=== PATIENT | female | born 1945 | race Caucasian/White ===

== ENCOUNTER 2017-04-13 18:20 | Inpatient (IN) | payer MEDICARE, BC ==
[2017-04-13] MEDS ORDERED: SODIUM CHLORIDE 0.9% 500 ML IV STA (18:46)
[2017-04-13 18:50] LABS: Glucose,Whole Blood 230 mg/dL (75-99)
--- NOTE | 2017-04-13 18:51 | ED ---
General Adult HPI - General Chief complaint: Syncope Stated complaint: syncope, multiple falls, weakness left ankle Time Seen by Provider: 04/13/17 18:25 Source: patient, family, RN notes reviewed Mode of arrival: wheelchair Limitations: no limitations - History of Present Illness Initial comments: This is a 72-year-old female who presents emergency Department with a past medical history significant for hypertension. Patient comes in today because she felt weak and fell down. Patient states she felt better so she got back up and felt weak again and fell down a second time this time hurting her left ankle. Patient denies any lightheadedness or dizziness. Patient denies any chest pain or palpitations. Patient denies any difficulty breathing or shortness of breath. Patient states she has a history of anemia and she has taken iron. Patient denies abdominal pain patient denies nausea vomiting diarrhea. Patient denies any recent fever chills or cough. Patient states the first time it happened she was in the shower and that is when she got weak the second time she was no longer in the shower. - Related Data Home Medications Medication Instructions Recorded Confirmed Aspirin EC [Ecotrin] 81 mg PO DAILY 03/10/16 04/13/17 Atorvastatin [Lipitor] 40 mg PO DAILY 03/10/16 04/13/17 Chlorthalidone [Hygroton] 25 mg PO DAILY 03/10/16 04/13/17 Cholecalciferol [Vitamin D3] 2,000 unit PO DAILY 03/10/16 04/13/17 Levothyroxine Sodium [Synthroid] 100 mcg PO DAILY 03/10/16 04/13/17 Losartan Potassium 100 mg PO DAILY 03/10/16 04/13/17 amLODIPine [Norvasc] 5 mg PO DAILY 03/10/16 04/13/17 Ferrous Sulfate [Feosol] 325 mg PO TID 04/13/17 04/13/17 Allergies Allergy/AdvReac Type Severity Reaction Status Date / Time No Known Allergies Allergy Verified 04/13/17 19:18 Review of Systems ROS Statement: Those systems with pertinent positive or pertinent negative responses have been documented in the HPI. ROS Other: All systems not noted in ROS Statement are negative. Past Medical History Past Medical History: Hyperlipidemia, Hypertension, Thyroid Disorder History of Any Multi-Drug Resistant Organisms: None Reported Past Surgical History: Breast Surgery, Hysterectomy Past Psychological History: No Psychological Hx Reported Smoking Status: Never smoker Past Alcohol Use History: None Reported Past Drug Use History: None Reported General Exam - General Exam Comments Initial Comments: GENERAL: Patient is well-developed and well-nourished. Patient is nontoxic and well- hydrated and is in mild distress and is very tired.. ENT: Neck is soft and supple. No significant lymphadenopathy is noted. Oropharynx is clear. Moist mucous membranes. Neck has full range of motion without eliciting any pain. EYES: The sclera were anicteric and conjunctiva were pink and moist. Extraocular movements were intact and pupils were equal round and reactive to light. Eyelids were unremarkable. PULMONARY: Unlabored respirations. Good breath sounds bilaterally. No audible rales rhonchi or wheezing was noted. CARDIOVASCULAR: There is a regular rate and rhythm without any murmurs gallops or rubs. ABDOMEN: Soft and nontender with normal bowel sounds. No palpable organomegaly was noted. There is no palpable pulsatile mass. SKIN: Patient appears very pale NEUROLOGIC: Patient is alert and oriented x3. Cranial nerves II through XII are grossly intact. Motor and sensory are also intact. Normal speech, volume and content. Symmetrical smile. MUSCULOSKELETAL: Normal extremities with adequate strength and full range of motion. No lower extremity swelling or edema. No calf tenderness. LYMPHATICS: No significant lymphadenopathy is noted PSYCHIATRIC: Normal psychiatric evaluation. Limitations: no limitations Course Vital Signs 04/13/17 18:23 Pulse Rate 84 Respiratory 24 Rate Blood Pressure 96/54 O2 Sat by Pulse 85 L Oximetry Medical Decision Making - Medical Decision Making EKG shows normal sinus rhythm at 70 bpm AL interval 160 QRS is 82 QT interval 392 QTC is 446 per patient's EKG shows no ST segment elevation or depression. Patient does have some inverted T waves in V1 and V2 well as V3 Patient's hemoglobin is 6.7 and is guaiac positive. I started a type and cross ordered 1 unit of DrAneudy blood cells to be delivered. Patient is going to be admitted I spoke with Dr. Stone and he agreed with admission I spoke with Dr. Mahoney and he agreed to accept the patient in ICU. I wrote admitting orders and consult to Dr. Maurer for possible scope. I repeated the CBC on the floor.. Patient's x-ray of the ankle showed a fractured fibula distally. I put the patient an OCL and I consult orthopedics - Lab Data Result diagrams: 04/13/17 18:42 04/13/17 18:42 Lab Results 04/13/17 04/13/17 04/13/17 Range/Units 18:35 18:42 18:42 WBC 11.8 H (3.8-10.6) k/uL RBC 3.05 L (3.80-5.40) m/uL Hgb 6.7 L* (11.4-16.0) gm/dL Hct 23.0 L (34.0-46.0) % MCV 75.3 L (80.0-100.0) fL MCH 22.0 L (25.0-35.0) pg MCHC 29.2 L (31.0-37.0) g/dL RDW 23.4 H (11.5-15.5) % Plt Count 373 (150-450) k/uL Neutrophils % 83 % Lymphocytes % 11 % Monocytes % 4 % Eosinophils % 1 % Basophils % 0 % Neutrophils # 9.8 H (1.3-7.7) k/uL Lymphocytes # 1.3 (1.0-4.8) k/uL Monocytes # 0.4 (0-1.0) k/uL Eosinophils # 0.1 (0-0.7) k/uL Basophils # 0.1 (0-0.2) k/uL Hypochromasia Marked Poikilocytosis Slight Anisocytosis Moderate Microcytosis Moderate PT (9.0-12.0) sec INR (<1.2) APTT (22.0-30.0) sec Sodium (137-145) mmol/L Potassium (3.5-5.1) mmol/L Chloride (98-107) mmol/L Carbon Dioxide (22-30) mmol/L Anion Gap mmol/L BUN (7-17) mg/dL Creatinine (0.52-1.04) mg/dL Est GFR (MDRD) Af Amer (>60 ml/min/1.73 sqM) Est GFR (MDRD) Non-Af (>60 ml/min/1.73 sqM) Glucose (74-99) mg/dL POC Glucose (mg/dL) 230 H (75-99) mg/dL POC Glu [employer]orter ID [place] Calcium (8.4-10.2) mg/dL Magnesium (1.6-2.3) mg/dL Total Bilirubin (0.2-1.3) mg/dL AST (14-36) U/L ALT (9-52) U/L Alkaline Phosphatase (38-126) U/L Total Creatine Kinase 286 H (30-135) U/L CK-MB (CK-2) 9.5 H* (0.0-2.4) ng/mL CK-MB (CK-2) Rel Index 3.3 Troponin I <0.012 (0.000-0.034) ng/mL Total Protein (6.3-8.2) g/dL Albumin (3.5-5.0) g/dL Stool Occult Blood (Negative) Blood Type Blood Type Confirm Blood Type Recheck Antibody Screen Crossmatch Spec Expiration Date 04/13/17 04/13/17 04/13/17 Range/Units 18:42 18:42 19:44 WBC (3.8-10.6) k/uL RBC (3.80-5.40) m/uL Hgb (11.4-16.0) gm/dL Hct (34.0-46.0) % MCV (80.0-100.0) fL MCH (25.0-35.0) pg MCHC (31.0-37.0) g/dL RDW (11.5-15.5) % Plt Count (150-450) k/uL Neutrophils % % Lymphocytes % % Monocytes % % Eosinophils % % Basophils % % Neutrophils # (1.3-7.7) k/uL Lymphocytes # (1.0-4.8) k/uL Monocytes # (0-1.0) k/uL Eosinophils # (0-0.7) k/uL Basophils # (0-0.2) k/uL Hypochromasia Poikilocytosis Anisocytosis Microcytosis PT (9.0-12.0) sec INR (<1.2) APTT (22.0-30.0) sec Sodium 141 (137-145) mmol/L Potassium 3.5 (3.5-5.1) mmol/L Chloride 107 (98-107) mmol/L Carbon Dioxide 21 L (22-30) mmol/L Anion Gap 13 mmol/L BUN 29 H (7-17) mg/dL Creatinine 1.24 H (0.52-1.04) mg/dL Est GFR (MDRD) Af Amer 51 (>60 ml/min/1.73 sqM) Est GFR (MDRD) Non-Af 42 (>60 ml/min/1.73 sqM) Glucose 195 H (74-99) mg/dL POC Glucose (mg/dL) (75-99) mg/dL POC Glu T[employer] Sorter ID Calcium 9.3 (8.4-10.2) mg/dL Magnesium 1.7 (1.6-2.3) mg/dL Total Bilirubin 0.6 (0.2-1.3) mg/dL AST 31 (14-36) U/L ALT 33 (9-52) U/L Alkaline Phosphatase 99 (38-126) U/L Total Creatine Kinase (30-135) U/L CK-MB (CK-2) (0.0-2.4) ng/mL CK-MB (CK-2) Rel Index Troponin I (0.000-0.034) ng/mL Total Protein 6.2 L (6.3-8.2) g/dL Albumin 3.5 (3.5-5.0) g/dL Stool Occult Blood (Negative) Blood Type A Positive Blood Type Confirm A Positive Blood Type Recheck CABO Indicated Antibody Screen NEGATIVE Crossmatch See Detail Spec Expiration Date 04/16/2017 - 234104/13/17 04/13/17 Range/Units 19:44 19:46 WBC (3.8-10.6) k/uL RBC (3.80-5.40) m/uL Hgb (11.4-16.0) gm/dL Hct (34.0-46.0) % MCV (80.0-100.0) fL MCH (25.0-35.0) pg MCHC (31.0-37.0) g/dL RDW (11.5-15.5) % Plt Count (150-450) k/uL Neutrophils % % Lymphocytes % % Monocytes % % Eosinophils % % Basophils % % Neutrophils # (1.3-7.7) k/uL Lymphocytes # (1.0-4.8) k/uL Monocytes # (0-1.0) k/uL Eosinophils # (0-0.7) k/uL Basophils # (0-0.2) k/uL Hypochromasia Poikilocytosis Anisocytosis Microcytosis PT 11.4 (9.0-12.0) sec INR 1.1 (<1.2) APTT 20.3 L (22.0-30.0) sec Sodium (137-145) mmol/L Potassium (3.5-5.1) mmol/L Chloride (98-107) mmol/L Carbon Dioxide (22-30) mmol/L Anion Gap mmol/L BUN (7-17) mg/dL Creatinine (0.52-1.04) mg/dL Est GFR (MDRD) Af Amer (>60 ml/min/1.73 sqM) Est GFR (MDRD) Non-Af (>60 ml/min/1.73 sqM) Glucose (74-99) mg/dL POC Glucose (mg/dL) (75-99) mg/dL POC Glu T[employer] Sorter ID Calcium (8.4-10.2) mg/dL Magnesium (1.6-2.3) mg/dL Total Bilirubin (0.2-1.3) mg/dL AST (14-36) U/L ALT (9-52) U/L Alkaline Phosphatase (38-126) U/L Total Creatine Kinase (30-135) U/L CK-MB (CK-2) (0.0-2.4) ng/mL CK-MB (CK-2) Rel Index Troponin I (0.000-0.034) ng/mL Total Protein (6.3-8.2) g/dL Albumin (3.5-5.0) g/dL Stool Occult Blood Positive H (Negative) Blood Type Blood Type Confirm Blood Type Recheck Antibody Screen Crossmatch Spec Expiration Date Critical Care Time Critical Care Time: Yes Total Critical Care Time: 35 Disposition Clinical Impression: Anemia, GI bleed, Fibula fracture Disposition: ADMITTED IP TO THIS [facility] Referrals: Sebastian Miguel MD [Primary Care Provider] - 1-2 days Time of Disposition: 21:00
[2017-04-13 19:00] LABS: Anisocytosis Moderate; Basophils # (A) 0.1 k/uL (0-0.2); Basophils % (A) 0 %; CH 21.1; CHCM 28.2; Eosinophils # (A) 0.1 k/uL (0-0.7); Eosinophils % (A) 1 %; HDW 3.77; Hypochromasia Marked; Luc # (Auto) 0.14; Luc % (Auto) 1; Lymphocytes # (A) 1.3 k/uL (1.0-4.8); Lymphocytes % (A) 11 %; MCHC 29.2 g/dL (31.0-37.0); MCV 75.3 fL (80.0-100.0); Mean Platelet Volume 6.9; Microcytosis Moderate; Monocytes # (A) 0.4 k/uL (0-1.0); Monocytes % (A) 4 %; Neutrophils # (A) 9.8 k/uL (1.3-7.7); Neutrophils % (A) 83 %; Poikilocytosis Slight; RBC 3.05 m/uL (3.80-5.40); RDW 23.4 % (11.5-15.5); WBC 11.8 k/uL (3.8-10.6); WBC (Perox) 11.57
[2017-04-13 19:04] LABS: Potassium 3.5 mmol/L (3.5-5.1)
[2017-04-13 19:05] LABS: Calcium 9.3 mg/dL (8.4-10.2); HGB 6.7 gm/dL (11.4-16.0); Magnesium 1.7 mg/dL (1.6-2.3); Total Bilirubin 0.6 mg/dL (0.2-1.3); Total Protein 6.2 g/dL (6.3-8.2)
--- NOTE | 2017-04-13 19:08 | XR ---
EXAMINATION TYPE: XR chest 2V DATE OF EXAM: 04/13/2017 COMPARISON: NONE HISTORY: Shortness of breath, syncope and weakness TECHNIQUE: Frontal and lateral views of the chest are obtained. FINDINGS: There is no focal air space opacity, pleural effusion, or pneumothorax seen. The cardiac silhouette size is prominent although the patient is rotated which may accentuate appearance. There i s overlying tubing. There are overlying cardiac leads. The osseous structures are intact. IMPRESSION: No acute cardiopulmonary process.
[2017-04-13 19:17] LABS: Creatine Kinase 286 U/L (30-135)
[2017-04-13 19:28] LABS: Troponin I <0.012 ng/mL (0.000-0.034)
[2017-04-13 19:37] LABS: Creatine Kinase MB 9.5 ng/mL (0.0-2.4)
[2017-04-13 20:20] LABS: INR 1.1 (<1.2); Prothrombin Time 11.4 sec (9.0-12.0)
[2017-04-13 20:25] LABS: Partial Thromboplastin Time 20.3 sec (22.0-30.0)
--- NOTE | 2017-04-13 20:49 | XR ---
Left ankle HISTORY: Trauma and pain 3 views of the left ankle There is a comminuted distal fibular fracture with lateral posterior displacement at the metaphyseal level. No evident dislocation. Difficult to exclude a small chip fracture at the posterior malleolus. There is a small plantar calcaneal spur. Vascular calcifications are present. There is soft tissue s welling. IMPRESSION: Fracture as described.
[2017-04-13] MEDS ORDERED: NALOXONE 0.4 MG/ML 1 ML VIAL IV PRN (21:05)
[2017-04-13 22:30] LABS: Glucose,Whole Blood 135 mg/dL (75-99)
[2017-04-14 00:11] LABS: Appearance,Urine Clear (Clear); Bilirubin,Urine Negative (Negative); Glucose,Urine (UA) Negative (Negative); Ketones,Urine Negative (Negative); Leukocyte Esterase,Urine Trace (Negative); Mucus,Urine Rare /hpf; Nitrite,Urine Negative (Negative); Particle Count 3220; Protein,Urine Negative (Negative); RBC,Urine <1 /hpf (0-5); Specific Gravity,Urine 1.011 (1.001-1.035); Squamous Epithelial Cell,Urine <1 /hpf (0-4); UA Billing (MACRO vs. MICRO) MICRO; Urobilinogen,Urine <2.0 mg/dL (<2.0); WBC,Urine 1 /hpf (0-5)
[2017-04-14] MEDS: HYDROcodone/APAP 5-325MG 1 EACH TAB PO PRN ×2 (00:12→07:01)
[2017-04-14 04:51] LABS: Anion Gap 10 mmol/L; Blood Urea Nitrogen 30 mg/dL (7-17); Calcium 8.9 mg/dL (8.4-10.2); Carbon Dioxide 22 mmol/L (22-30); Chloride 110 mmol/L (98-107); Glucose 109 mg/dL (74-99); Magnesium 1.9 mg/dL (1.6-2.3); Non-African American GFR(MDRD) 51 (>60 ml/min/1.73 sqM); Phosphorous 3.4 mg/dL (2.5-4.5); Potassium 3.1 mmol/L (3.5-5.1); Sodium 142 mmol/L (137-145)
[2017-04-14 04:53] LABS: Anisocytosis Moderate; Basophils % (A) 0 %; CH 22.8; CHCM 29.6; Eosinophils % (A) 0 %; HDW 4.36; HGB 7.2 gm/dL (11.4-16.0); Hypochromasia Marked; Luc # (Auto) 0.27; Luc % (Auto) 3; Lymphocytes # (A) 1.5 k/uL (1.0-4.8); Lymphocytes % (A) 17 %; MCHC 29.8 g/dL (31.0-37.0); MCV 77.3 fL (80.0-100.0); Microcytosis Moderate; Monocytes # (A) 0.6 k/uL (0-1.0); Monocytes % (A) 7 %; Neutrophils # (A) 6.4 k/uL (1.3-7.7); Neutrophils % (A) 73 %; Poikilocytosis Moderate; RBC 3.11 m/uL (3.80-5.40); RDW 22.3 % (11.5-15.5); WBC 8.8 k/uL (3.8-10.6); WBC (Perox) 8.99
[2017-04-14] MEDS ORDERED: Potassium Replacement Protocol 1 EACH MISC MISCELLANE PRN ×2 (05:01→05:34)
[2017-04-14] MEDS: ONDANSETRON 4 MG/2 ML VIAL IVP PRN ×2 (05:51→12:05)
[2017-04-14] MEDS ORDERED: POTASSIUM CHLORIDE ER 20 MEQ TAB.ER PO SCH (06:00)
[2017-04-14] MEDS: POTASSIUM CHLORIDE 10 MEQ, LIDOCAINE 2% INJ 10 MG in SODIUM CHLORIDE 0.9% 100 ML IV SCH ×2 (06:29→08:54)
[2017-04-14] MEDS: SODIUM CHLORIDE 0.9% 1,000 ML IV SCH ×2 (08:55→14:00)
[2017-04-14] MEDS: ESOMEPRAZOLE 20 MG in SODIUM CHLORIDE 0.9% 50 ML IVPB SCH (10:00)
[2017-04-14] MEDS: HYDROmorphone 1 MG/ML 1 ML SYRINGE IVP PRN ×2 (12:05→22:25)
--- NOTE | 2017-04-14 13:41 | HP ---
CHIEF COMPLAINT: GI bleeding, syncope and fracture of the left lower leg. HISTORY OF PRESENT ILLNESS: This is another admission for this 72-year-old white female. She has been anemic for several months. She underwent upper and lower GI endoscopies without any abnormality being discovered. She has continued to be anemic, but has otherwise been asymptomatic. On the night of admission, she got up to go to the bathroom and felt dizzy and fell. She denied chest pain, focal neurologic deficits, etc. She is a poor historian. It is not clear if she saw blood per rectum or not. She decided that she should go to the hospital and as her helped her to the car, she passed out again and that is probably when she fractured her left tibia. Her hemoglobin has been running around 8 over the last month or 2. She came to the emergency room and her hemoglobin was 7.2 and she was admitted. REVIEW OF SYSTEMS: She denies any focal neurologic deficits, change in vision or hearing, shortness of breath, cough, chest pain, palpitations, orthopnea, PND , abdominal pain, hematemesis, jaundice. She has had no urinary complaints including hematuria. Past medical history, family history and personal social history reveal that she cannot take Procardia or KALIA inhibitors. Medications include combination of ( ), ( ), ( ) for H. pylori. She is also on atorvastatin 40 mg at night, amlodipine 5 mg once a day, chlorthalidone 25 mg once a day, losartan 100 mg once a day, levothyroxine 0.1 once a day, vitamin D3, 2000 units a day and 81 mg of aspirin. The remainder of her history is unremarkable. She does not drink or smoke. PHYSICAL EXAM: Blood pressure is 119/78 with a pulse of 85, respirations are 32 and she is afebrile. In general, she appeared to be pale. She is overweight. She is awake and alert. Skin is dry. Head, ears, eyes, nose, mouth and throat were normal. Neck veins not distended. Carotids are normal. Chest is clear. Cardiac exam is normal with no murmurs or extra sounds and she did not have tachycardia. ABDOMEN: Slightly protuberant, soft and slightly tender over the epigastrium. There are no masses. Bowel sounds are present. Extremities were normal except for the left lower leg, which was wrapped with an Kalia wrap and elevated. Neurologically, she is intact. She is admitted to the hospital with DIAGNOSES: 1. Gastrointestinal bleed, acute on chronic, source unknown. 2. Blood loss anemia. 3. Fracture of the left tibia. 4. Hypothyroidism. 5. Hypertension. PLAN: 1. Bed rest. 2. IV fluids. 3. Frequent assessment of hemoglobin. 4. ( ) consult. 5. GI consult. 6. Orthopedic consult. RAYRAY
--- NOTE | 2017-04-14 14:53 | P.CNPUL ---
History of Present Illness Consult date: 04/14/17 Chief complaint: Generalized weakness, anemia, GI bleed suspected History of present illness: This is a 72-year-old female patient came into the hospital because of generalized weakness. The patient was feeling very weak and she had a fall and she tried to get up and she fell again and she sustained a fracture to her left ankle. She was also found to be anemic with a hemoglobin of 6.7 . She denies having any nausea or vomiting. She denied having any hematemesis. No bright red blood per rectum. No melena. No hematochezia. She came in to the ICU where she was given a unit of packed RBC and hemoglobin came up to 7.2. Denies alcoholism. Most of liver disease. No history of any intake of nonsteroidal anti-inflammatory medication. The patient was recently in [facility] and she was investigated for GI bleed and anemia. She underwent upper and lower endoscopies and she was found to have some mild gastritis with a positive H. pylori. She was also found to have a colonic polyp that was removed and do not to be benign. She is on oral iron. Her stool has been somewhat dark. Currently she is hemodynamically stable however she had a systolic blood pressure in the mid 90s at a time of arrival. She felt dizzy at that time and this has recovered. She denies having any chest pain. No focal neurological deficit. She has a large umbilical hernia that is easily reducible. Her last bowel movement was yesterday and no bowel movements for today. As mentioned, she fractured her left fibula with lateral posterior displacement of them metaphalangeal level and she'll be seen by orthopedic surgery. No chest pain. No shortness of breath. No angina. No change in mental status. No focal logical deficits at this point. Review of Systems Constitutional: Reports fatigue, Reports weakness Eyes: denies blurred vision, denies bulging eye, denies decreased vision Ears: bilateral: decreased hearing, deny: ear discharge, earache Ears, nose, mouth and throat: Denies headache, Denies sore throat Cardiovascular: Reports decreased exercise tolerance Respiratory: Reports dyspnea Gastrointestinal: Reports melena (Dark stool, could be also related to iron intake.) Genitourinary: Denies dysuria, Denies hematuria Musculoskeletal: Reports fractures (Left fibular fracture), Reports muscle weakness, Denies myalgias Musculoskeletal: absent: ankle pain, ankle stiffness, ankle swelling Integumentary: Denies pruritus, Denies rash Neurological: Denies numbness, Denies weakness Psychiatric: Denies anxiety, Denies depression Endocrine: Denies fatigue, Denies weight change Past Medical History Past Medical History: Hyperlipidemia, Hypertension, Thyroid Disorder Additional Past Medical History / Comment(s): Chronic anemia, antral gastritis and colonic polyps based on the most recent EGD and colonoscopy done at [facility], positive H. pylori, hypertension, hyperlipidemia, hypothyroidism History of Any Multi-Drug Resistant Organisms: None Reported Past Surgical History: Breast Surgery, Hysterectomy Past Psychological History: No Psychological Hx Reported Smoking Status: Never smoker Past Alcohol Use History: None Reported Past Drug Use History: None Reported Medications and Allergies Home Medications Medication Instructions Recorded Confirmed Type Aspirin EC [Ecotrin] 81 mg PO DAILY 03/10/16 04/13/17 History Atorvastatin [Lipitor] 40 mg PO DAILY 03/10/16 04/13/17 History Chlorthalidone [Hygroton] 25 mg PO DAILY 03/10/16 04/13/17 History Cholecalciferol [Vitamin D3] 2,000 unit PO DAILY 03/10/16 04/13/17 History Levothyroxine Sodium [Synthroid] 100 mcg PO DAILY 03/10/16 04/13/17 History Losartan Potassium 100 mg PO DAILY 03/10/16 04/13/17 History amLODIPine [Norvasc] 5 mg PO DAILY 03/10/16 04/13/17 History Ferrous Sulfate [Feosol] 325 mg PO TID 04/13/17 04/13/17 History Allergies Allergy/AdvReac Type Severity Reaction Status Date / Time No Known Allergies Allergy Verified 04/13/17 19:18 Physical Exam Vitals: Vital Signs Temp Pulse Resp BP Pulse Ox 04/14/17 14:00 50 L 103/64 99 04/14/17 13:00 76 18 117/64 98 04/14/17 12:00 98.2 F 60 28 H 140/70 100 04/14/17 11:00 61 16 140/70 100 04/14/17 10:00 58 L 136/63 100 04/14/17 09:00 72 13 143/64 99 04/14/17 08:00 97.8 F 62 15 127/61 99 04/14/17 07:00 77 21 149/73 97 04/14/17 06:00 79 20 130/61 99 04/14/17 05:00 72 21 128/59 98 04/14/17 04:00 98.6 F 67 20 132/71 100 04/14/17 03:00 69 17 125/64 100 04/14/17 02:00 57 L 22 117/62 99 04/14/17 01:00 73 16 111/58 99 04/14/17 00:18 98.1 F 80 16 121/69 96 04/14/17 00:00 98.1 F 79 20 108/56 98 04/13/17 23:14 87 95/58 98 04/13/17 23:00 97.8 F 83 23 95/58 98 04/13/17 22:13 97.9 F 82 18 120/60 100 04/13/17 22:00 98.3 F 82 18 115/57 100 04/13/17 21:50 97.9 F 77 18 112/77 99 04/13/17 21:42 97.8 F 77 18 114/56 99 04/13/17 21:30 98.0 F 77 18 118/59 100 04/13/17 21:29 98.4 F 75 18 116/58 100 04/13/17 21:17 98.0 F 73 18 110/54 100 04/13/17 18:23 84 24 96/54 85 L Intake and Output 04/13/17 04/14/17 04/14/17 22:59 06:59 14:59 Intake Total 0 920 600 Output Total 570 280 Balance 0 350 320 Intake: IV 300 600 .9 300 600 Blood Product 0 620 Rc As-1 Unit 0 310 [id number] Output: Urine 570 280 Other: Voiding Method Indwelling Catheter Indwelling Catheter Weight 93.9 kg 93.9 kg Patient is pale, comfortable likely distress.Head exam was generally normal. There was no scleral icterus or corneal arcus. Mucous membranes were moist.Neck was supple and without jugular venous distension, thyromegaly, or carotid bruits. Carotids were easily palpable bilaterally. There was no adenopathy. Lung sounds are diminished bilaterally otherwise clear. No wheezes or rhonchi or any crackles.Cardiac exam revealed the PMI to be normally situated and sized. The rhythm was regular and no extrasystoles were noted during several minutes of auscultation. The first and second heart sounds were normal and physiologic splitting of the second heart sound was noted. There were no murmurs , rubs, clicks, or gallops. Abdomen reveals an umbilical hernia which is large and it is easily reducible. No signs of incarceration or strangulation.Abdominal exam revealed normal bowel sounds. The abdomen was soft , non-tender, and without masses, organomegaly, or appreciable enlargement of the abdominal aorta.Examination of the extremities revealed easily palpable radial, femoral and pedal pulses. There was no cyanosis, clubbing or edema. Results - Laboratory Findings CBC and BMP: 04/14/17 04:15 04/14/17 11:17 PT/INR, D-dimer PT 11.4 sec (9.0-12.0) 04/13/17 19:44 INR 1.1 (<1.2) 04/13/17 19:44 Abnormal lab findings: Abnormal Labs 04/13/17 04/13/17 04/13/17 18:35 18:42 18:42 WBC 11.8 H RBC 3.05 L Hgb 6.7 L* Hct 23.0 L MCV 75.3 L MCH 22.0 L MCHC 29.2 L RDW 23.4 H Neutrophils # 9.8 H APTT Potassium Chloride Carbon Dioxide BUN Creatinine Glucose POC Glucose (mg/dL) 230 H Total Creatine Kinase 286 H CK-MB (CK-2) 9.5 H* Total Protein Ur Leukocyte Esterase Hyaline Casts Urine Mucus Stool Occult Blood Crossmatch 04/13/17 04/13/17 04/13/17 18:42 19:44 19:44 WBC RBC Hgb Hct MCV MCH MCHC RDW Neutrophils # APTT 20.3 L Potassium Chloride Carbon Dioxide 21 L BUN 29 H Creatinine 1.24 H Glucose 195 H POC Glucose (mg/dL) Total Creatine Kinase CK-MB (CK-2) Total Protein 6.2 L Ur Leukocyte Esterase Hyaline Casts Urine Mucus Stool Occult Blood Crossmatch See Detail 04/13/17 04/13/17 04/13/17 19:46 22:28 23:30 WBC RBC Hgb Hct MCV MCH MCHC RDW Neutrophils # APTT Potassium Chloride Carbon Dioxide BUN Creatinine Glucose POC Glucose (mg/dL) 135 H Total Creatine Kinase CK-MB (CK-2) Total Protein Ur Leukocyte Esterase Trace H Hyaline Casts 5 H Urine Mucus Rare H Stool Occult Blood Positive H Crossmatch 04/14/17 04/14/17 04:15 04:15 WBC RBC 3.11 L Hgb 7.2 L Hct 24.0 L MCV 77.3 L MCH 23.0 L MCHC 29.8 L RDW 22.3 H Neutrophils # APTT Potassium 3.1 L Chloride 110 H Carbon Dioxide BUN 30 H Creatinine 1.05 H Glucose 109 H POC Glucose (mg/dL) Total Creatine Kinase CK-MB (CK-2) Total Protein Ur Leukocyte Esterase Hyaline Casts Urine Mucus Stool Occult Blood Crossmatch - Diagnostic Findings Chest x-ray: image reviewed Assessment and Plan Plan: Assessment 1 chronic microcytic anemia probably later to a low-grade gastrointestinal blood loss. Rule out underlying iron deficiency. Patient is a positive guaiac. The patient was borderline hypotensive and dizzy and weak at the time of arrival. She received a unit of packed RBC and hemoglobin came up from 6.7 up to 7.2. She is not having any complaints for now. 2 antral gastritis and colonic polyps with a positive H. pylori based on the recent EGD and colonoscopy 3 umbilical hernia, reducible 4 recent fall with fracture of the left fibular 5 hypertension 6 hypothyroidism 7 hypertension 8 borderline hypotension at time of arrival to the hospital which improved with fluids. Plan Patient is stable for now. Hemodynamically stable. No further episodes of GI bleed. Check iron studies. Monitor hemoglobin. Transfuse to maintain hemoglobin above 7. IV fluids. GI consultation. Orthopedic consultation regarding the left tibial fracture. We'll continue to follow and the patient is stable enough to be moved out of the intensive care unit for now.
--- NOTE | 2017-04-14 15:55 | PN ---
DATE OF SERVICE: 04/14/2017 CHIEF COMPLAINT: Fracture of the left lower leg and GI bleed with blood loss anemia. HISTORY OF PRESENT ILLNESS: This lady is stable. Her vital signs are normal. She does not appear to be having active bleeding at this time. Hemoglobin is 7.2. PHYSICAL EXAM: She is pale, but vital signs are normal. Chest is clear. Cardiac exam is normal. She is slightly tender over the epigastrium. IMPRESSION: 1. Gastrointestinal blood loss. 2. Syncope. 3. Blood loss anemia. 4. Fracture of the left tibia. PLAN: Await consult with GI and Orthopedics. RAYRAY
--- NOTE | 2017-04-14 16:13 | P.GSCN ---
History of Present Illness Consult date: 04/14/17 Reason for Consult: Anemia History of present illness: The patient is a 72-year-old female who was admitted to the hospital due to a fall with fracture. She was found to be markedly anemic. She actually underwent a EGD by myself on 02-17-2017 along with a colonoscopy by . Those were both relatively unremarkable. The patient has not noticed any blood in the stools or dark tarry stools. No nausea, vomiting, weight loss. Review of Systems All systems: negative Past Medical History Past Medical History: Hyperlipidemia, Hypertension, Thyroid Disorder Additional Past Medical History / Comment(s): Chronic anemia, antral gastritis and colonic polyps based on the most recent EGD and colonoscopy done at [facility] 02/17/2017, positive H. pylori, hypertension, hyperlipidemia , hypothyroidism History of Any Multi-Drug Resistant Organisms: None Reported Past Surgical History: Breast Surgery, Hysterectomy Past Psychological History: No Psychological Hx Reported Smoking Status: Never smoker Past Alcohol Use History: None Reported Past Drug Use History: None Reported Medications and Allergies Home Medications Medication Instructions Recorded Confirmed Type Aspirin EC [Ecotrin] 81 mg PO DAILY 03/10/16 04/13/17 History Atorvastatin [Lipitor] 40 mg PO DAILY 03/10/16 04/13/17 History Chlorthalidone [Hygroton] 25 mg PO DAILY 03/10/16 04/13/17 History Cholecalciferol [Vitamin D3] 2,000 unit PO DAILY 03/10/16 04/13/17 History Levothyroxine Sodium [Synthroid] 100 mcg PO DAILY 03/10/16 04/13/17 History Losartan Potassium 100 mg PO DAILY 03/10/16 04/13/17 History amLODIPine [Norvasc] 5 mg PO DAILY 03/10/16 04/13/17 History Ferrous Sulfate [Feosol] 325 mg PO TID 04/13/17 04/13/17 History Allergies Allergy/AdvReac Type Severity Reaction Status Date / Time No Known Allergies Allergy Verified 04/13/17 19:18 Surgical - Exam Osteopathic Statement: *. No significant issues noted on an osteopathic structural exam other than those noted in the History and Physical/Consult. Vital Signs Pulse Resp BP Pulse Ox 84 24 96/54 85 L 04/13/17 18:23 04/13/17 18:23 04/13/17 18:23 04/13/17 18:23 - General well developed, well nourished, no distress - Eyes normal ocular movement - Neck trachea midline - Respiratory normal respiratory effort - Abdomen Abdomen: soft, non tender, bowel sounds, no guarding, no rigid, no rebound Results - Labs 04/14/17 04:15 04/14/17 11:17 Abnormal Lab Results - Last 24 Hours (Table) 04/13/17 04/13/17 04/13/17 Range/Units 18:35 18:42 18:42 WBC 11.8 H (3.8-10.6) k/uL RBC 3.05 L (3.80-5.40) m/uL Hgb 6.7 L* (11.4-16.0) gm/dL Hct 23.0 L (34.0-46.0) % MCV 75.3 L (80.0-100.0) fL MCH 22.0 L (25.0-35.0) pg MCHC 29.2 L (31.0-37.0) g/dL RDW 23.4 H (11.5-15.5) % Neutrophils # 9.8 H (1.3-7.7) k/uL APTT (22.0-30.0) sec Potassium (3.5-5.1) mmol/L Chloride (98-107) mmol/L Carbon Dioxide (22-30) mmol/L BUN (7-17) mg/dL Creatinine (0.52-1.04) mg/dL Glucose (74-99) mg/dL POC Glucose (mg/dL) 230 H (75-99) mg/dL Total Creatine Kinase 286 H (30-135) U/L CK-MB (CK-2) 9.5 H* (0.0-2.4) ng/mL Total Protein (6.3-8.2) g/dL Ur Leukocyte Esterase (Negative) Hyaline Casts (0-2) /lpf Urine Mucus (None) /hpf Stool Occult Blood (Negative) Crossmatch 04/13/17 04/13/17 04/13/17 Range/Units 18:42 19:44 19:44 WBC (3.8-10.6) k/uL RBC (3.80-5.40) m/uL Hgb (11.4-16.0) gm/dL Hct (34.0-46.0) % MCV (80.0-100.0) fL MCH (25.0-35.0) pg MCHC (31.0-37.0) g/dL RDW (11.5-15.5) % Neutrophils # (1.3-7.7) k/uL APTT 20.3 L (22.0-30.0) sec Potassium (3.5-5.1) mmol/L Chloride (98-107) mmol/L Carbon Dioxide 21 L (22-30) mmol/L BUN 29 H (7-17) mg/dL Creatinine 1.24 H (0.52-1.04) mg/dL Glucose 195 H (74-99) mg/dL POC Glucose (mg/dL) (75-99) mg/dL Total Creatine Kinase (30-135) U/L CK-MB (CK-2) (0.0-2.4) ng/mL Total Protein 6.2 L (6.3-8.2) g/dL Ur Leukocyte Esterase (Negative) Hyaline Casts (0-2) /lpf Urine Mucus (None) /hpf Stool Occult Blood (Negative) Crossmatch See Detail 04/13/17 04/13/17 04/13/17 Range/Units 19:46 22:28 23:30 WBC (3.8-10.6) k/uL RBC (3.80-5.40) m/uL Hgb (11.4-16.0) gm/dL Hct (34.0-46.0) % MCV (80.0-100.0) fL MCH (25.0-35.0) pg MCHC (31.0-37.0) g/dL RDW (11.5-15.5) % Neutrophils # (1.3-7.7) k/uL APTT (22.0-30.0) sec Potassium (3.5-5.1) mmol/L Chloride (98-107) mmol/L Carbon Dioxide (22-30) mmol/L BUN (7-17) mg/dL Creatinine (0.52-1.04) mg/dL Glucose (74-99) mg/dL POC Glucose (mg/dL) 135 H (75-99) mg/dL Total Creatine Kinase (30-135) U/L CK-MB (CK-2) (0.0-2.4) ng/mL Total Protein (6.3-8.2) g/dL Ur Leukocyte Esterase Trace H (Negative) Hyaline Casts 5 H (0-2) /lpf Urine Mucus Rare H (None) /hpf Stool Occult Blood Positive H (Negative) Crossmatch 04/14/17 04/14/17 Range/Units 04:15 04:15 WBC (3.8-10.6) k/uL RBC 3.11 L (3.80-5.40) m/uL Hgb 7.2 L (11.4-16.0) gm/dL Hct 24.0 L (34.0-46.0) % MCV 77.3 L (80.0-100.0) fL MCH 23.0 L (25.0-35.0) pg MCHC 29.8 L (31.0-37.0) g/dL RDW 22.3 H (11.5-15.5) % Neutrophils # (1.3-7.7) k/uL APTT (22.0-30.0) sec Potassium 3.1 L (3.5-5.1) mmol/L Chloride 110 H (98-107) mmol/L Carbon Dioxide (22-30) mmol/L BUN 30 H (7-17) mg/dL Creatinine 1.05 H (0.52-1.04) mg/dL Glucose 109 H (74-99) mg/dL POC Glucose (mg/dL) (75-99) mg/dL Total Creatine Kinase (30-135) U/L CK-MB (CK-2) (0.0-2.4) ng/mL Total Protein (6.3-8.2) g/dL Ur Leukocyte Esterase (Negative) Hyaline Casts (0-2) /lpf Urine Mucus (None) /hpf Stool Occult Blood (Negative) Crossmatch Diabetes panel 04/13/17 04/14/17 04/14/17 Range/Units 18:42 04:15 11:17 Sodium 141 142 (137-145) mmol/L Potassium 3.5 3.1 L 3.8 (3.5-5.1) mmol/L Chloride 107 110 H (98-107) mmol/L Carbon Dioxide 21 L 22 (22-30) mmol/L BUN 29 H 30 H (7-17) mg/dL Creatinine 1.24 H 1.05 H (0.52-1.04) mg/dL Glucose 195 H 109 H (74-99) mg/dL Calcium 9.3 8.9 (8.4-10.2) mg/dL AST 31 (14-36) U/L ALT 33 (9-52) U/L Alkaline Phosphatase 99 (38-126) U/L Total Protein 6.2 L (6.3-8.2) g/dL Albumin 3.5 (3.5-5.0) g/dL Calcium panel 04/13/17 04/14/17 Range/Units 18:42 04:15 Calcium 9.3 8.9 (8.4-10.2) mg/dL Phosphorus 3.4 (2.5-4.5) mg/dL Albumin 3.5 (3.5-5.0) g/dL Pituitary panel 04/13/17 04/14/17 04/14/17 Range/Units 18:42 04:15 11:17 Sodium 141 142 (137-145) mmol/L Potassium 3.5 3.1 L 3.8 (3.5-5.1) mmol/L Chloride 107 110 H (98-107) mmol/L Carbon Dioxide 21 L 22 (22-30) mmol/L BUN 29 H 30 H (7-17) mg/dL Creatinine 1.24 H 1.05 H (0.52-1.04) mg/dL Glucose 195 H 109 H (74-99) mg/dL Calcium 9.3 8.9 (8.4-10.2) mg/dL Adrenal panel 04/13/17 04/14/17 04/14/17 Range/Units 18:42 04:15 11:17 Sodium 141 142 (137-145) mmol/L Potassium 3.5 3.1 L 3.8 (3.5-5.1) mmol/L Chloride 107 110 H (98-107) mmol/L Carbon Dioxide 21 L 22 (22-30) mmol/L BUN 29 H 30 H (7-17) mg/dL Creatinine 1.24 H 1.05 H (0.52-1.04) mg/dL Glucose 195 H 109 H (74-99) mg/dL Calcium 9.3 8.9 (8.4-10.2) mg/dL Total Bilirubin 0.6 (0.2-1.3) mg/dL AST 31 (14-36) U/L ALT 33 (9-52) U/L Alkaline Phosphatase 99 (38-126) U/L Total Protein 6.2 L (6.3-8.2) g/dL Albumin 3.5 (3.5-5.0) g/dL Assessment and Plan (1) Heme positive stool Status: Acute (2) Anemia Status: Acute (3) GI bleed Status: Acute Plan: In light of a normal EGD and colonoscopy, I recommend evaluation by GI for capsule endoscopy. Treat her symptomatic anemia. DVT and ulcer prophylaxis. Currently nonsurgical.
--- NOTE | 2017-04-14 16:42 | P.CNOR ---
History of Present Illness - HPI Consult date: 04/14/17 Requesting physician: Deonte Mishra Consult reason: fracture (Left distal fibula) History of present illness: Patient is a pleasant 72-year-old female who was admitted through the emergency department yesterday 04/13/2017 after mechanical fall at home. She apparently passed out and was found to be anemic. After her fall she developed left ankle pain and swelling. X-rays in the emergency department showed a mild displaced left lateral malleolus fracture. She is seen in the ICU this afternoon. She has pain at the left lateral ankle as expected. She is denying numbness or tingling. She denies calf pain, fever, chills or chest pain or shortness of breath. She has no knee pain. She has no new or other complaints. Review of Systems All systems: negative Constitutional: Denies chills, Denies fever Eyes: denies blurred vision, denies pain Ears, nose, mouth and throat: Denies headache, Denies sore throat Cardiovascular: Denies chest pain, Denies shortness of breath Respiratory: Denies cough Gastrointestinal: Denies abdominal pain, Denies diarrhea, Denies nausea, Denies vomiting Genitourinary: Denies dysuria, Denies hematuria Musculoskeletal: Denies myalgias Integumentary: Denies pruritus, Denies rash Neurological: Denies numbness, Denies weakness Psychiatric: Denies anxiety, Denies depression Endocrine: Denies fatigue, Denies weight change Past Medical History Past Medical History: Hyperlipidemia, Hypertension, Thyroid Disorder Additional Past Medical History / Comment(s): Chronic anemia, antral gastritis and colonic polyps based on the most recent EGD and colonoscopy done at [facility] 02/17/2017, positive H. pylori, hypertension, hyperlipidemia , hypothyroidism History of Any Multi-Drug Resistant Organisms: None Reported Past Surgical History: Breast Surgery, Hysterectomy Past Psychological History: No Psychological Hx Reported Smoking Status: Never smoker Past Alcohol Use History: None Reported Past Drug Use History: None Reported Medications and Allergies Home Medications Medication Instructions Recorded Confirmed Type Aspirin EC [Ecotrin] 81 mg PO DAILY 03/10/16 04/13/17 History Atorvastatin [Lipitor] 40 mg PO DAILY 03/10/16 04/13/17 History Chlorthalidone [Hygroton] 25 mg PO DAILY 06/23/16 07/27/17 History Cholecalciferol [Vitamin D3] 2,000 unit PO DAILY 03/10/16 04/13/17 History Levothyroxine Sodium [Synthroid] 100 mcg PO DAILY 03/10/16 04/13/17 History Losartan Potassium 100 mg PO DAILY 03/10/16 04/13/17 History amLODIPine [Norvasc] 5 mg PO DAILY 03/10/16 04/13/17 History Ferrous Sulfate [Feosol] 325 mg PO TID 04/13/17 04/13/17 History Allergies Allergy/AdvReac Type Severity Reaction Status Date / Time No Known Allergies Allergy Verified 04/13/17 19:18 Physical Examination Inspection of the left lower extremity reveals no open wounds or lacerations. There is [id number]-[id number] edema at the left lateral ankle. She is tender at the lateral malleolus. There is no tenderness at the medial malleolus. Achilles is intact. Calf is soft and nontender. Pain limits her range of motion and full range is not tested due to her fracture. She has a nontender foot and toes. Neurovascular status is intact throughout the left lower extremity. Less than 2 second capillary refill is present as well as 2+ dorsalis pedis pulse. An OCL splint is in place with appropriate fitting Results X-rays of the left ankle show a mild displaced distal fibula fracture. There is no ankle dislocation. There is no medial malleolus fracture. - Labs Labs: Abnormal Lab Results - Last 24 Hours (Table) 04/13/17 04/13/17 04/13/17 Range/Units 18:35 18:42 18:42 WBC 11.8 H (3.8-10.6) k/uL RBC 3.05 L (3.80-5.40) m/uL Hgb 6.7 L* (11.4-16.0) gm/dL Hct 23.0 L (34.0-46.0) % MCV 75.3 L (80.0-100.0) fL MCH 22.0 L (25.0-35.0) pg MCHC 29.2 L (31.0-37.0) g/dL RDW 23.4 H (11.5-15.5) % Neutrophils # 9.8 H (1.3-7.7) k/uL APTT (22.0-30.0) sec Potassium (3.5-5.1) mmol/L Chloride (98-107) mmol/L Carbon Dioxide (22-30) mmol/L BUN (7-17) mg/dL Creatinine (0.52-1.04) mg/dL Glucose (74-99) mg/dL POC Glucose (mg/dL) 230 H (75-99) mg/dL Total Creatine Kinase 286 H (30-135) U/L CK-MB (CK-2) 9.5 H* (0.0-2.4) ng/mL Total Protein (6.3-8.2) g/dL Ur Leukocyte Esterase (Negative) Hyaline Casts (0-2) /lpf Urine Mucus (None) /hpf Stool Occult Blood (Negative) Crossmatch 04/13/17 04/13/17 04/13/17 Range/Units 18:42 19:44 19:44 WBC (3.8-10.6) k/uL RBC (3.80-5.40) m/uL Hgb (11.4-16.0) gm/dL Hct (34.0-46.0) % MCV (80.0-100.0) fL MCH (25.0-35.0) pg MCHC (31.0-37.0) g/dL RDW (11.5-15.5) % Neutrophils # (1.3-7.7) k/uL APTT 20.3 L (22.0-30.0) sec Potassium (3.5-5.1) mmol/L Chloride (98-107) mmol/L Carbon Dioxide 21 L (22-30) mmol/L BUN 29 H (7-17) mg/dL Creatinine 1.24 H (0.52-1.04) mg/dL Glucose 195 H (74-99) mg/dL POC Glucose (mg/dL) (75-99) mg/dL Total Creatine Kinase (30-135) U/L CK-MB (CK-2) (0.0-2.4) ng/mL Total Protein 6.2 L (6.3-8.2) g/dL Ur Leukocyte Esterase (Negative) Hyaline Casts (0-2) /lpf Urine Mucus (None) /hpf Stool Occult Blood (Negative) Crossmatch See Detail 07/04/13/17 04/13/17 Range/Units 19:46 22:28 23:30 WBC (3.8-10.6) k/uL RBC (3.80-5.40) m/uL Hgb (11.4-16.0) gm/dL Hct (34.0-46.0) % MCV (80.0-100.0) fL MCH (25.0-35.0) pg MCHC (31.0-37.0) g/dL RDW (11.5-15.5) % Neutrophils # (1.3-7.7) k/uL APTT (22.0-30.0) sec Potassium (3.5-5.1) mmol/L Chloride (98-107) mmol/L Carbon Dioxide (22-30) mmol/L BUN (7-17) mg/dL Creatinine (0.52-1.04) mg/dL Glucose (74-99) mg/dL POC Glucose (mg/dL) 135 H (75-99) mg/dL Total Creatine Kinase (30-135) U/L CK-MB (CK-2) (0.0-2.4) ng/mL Total Protein (6.3-8.2) g/dL Ur Leukocyte Esterase Trace H (Negative) Hyaline Casts 5 H (0-2) /lpf Urine Mucus Rare H (None) /hpf Stool Occult Blood Positive H (Negative) Crossmatch 04/14/17 04/14/17 Range/Units 04:15 04:15 WBC (3.8-10.6) k/uL RBC 3.11 L (3.80-5.40) m/uL Hgb 7.2 L (11.4-16.0) gm/dL Hct 24.0 L (34.0-46.0) % MCV 77.3 L (80.0-100.0) fL MCH 23.0 L (25.0-35.0) pg MCHC 29.8 L (31.0-37.0) g/dL RDW 22.3 H (11.5-15.5) % Neutrophils # (1.3-7.7) k/uL APTT (22.0-30.0) sec Potassium 3.1 L (3.5-5.1) mmol/L Chloride 110 H (98-107) mmol/L Carbon Dioxide (22-30) mmol/L BUN 30 H (7-17) mg/dL Creatinine 1.05 H (0.52-1.04) mg/dL Glucose 109 H (74-99) mg/dL POC Glucose (mg/dL) (75-99) mg/dL Total Creatine Kinase (30-135) U/L CK-MB (CK-2) (0.0-2.4) ng/mL Total Protein (6.3-8.2) g/dL Ur Leukocyte Esterase (Negative) Hyaline Casts (0-2) /lpf Urine Mucus (None) /hpf Stool Occult Blood (Negative) Crossmatch H & H 04/13/17 04/14/17 Range/Units 18:42 04:15 Hgb 6.7 L* 7.2 L (11.4-16.0) gm/dL Hct 23.0 L 24.0 L (34.0-46.0) % Coagulation 04/13/17 Range/Units 19:44 INR 1.1 (<1.2) Result Diagrams: 04/14/17 04:15 04/14/17 11:17 - Diagnostic results Ankle/Foot x-ray: report reviewed, image reviewed Assessment and Plan (1) Fibula fracture Narrative/Plan: This patient has been reviewed with Dr. Mishra. We recommended obtaining a walking boot for immobilization. She is to maintain elevation left lower extremity and may utilize ice for 10-15 minutes a few times a day. She should be nonweightbearing with the left lower extremity. No surgical intervention planned during her stay and she may follow-up as an outpatient when released and cleared from her other medical problems. Continue pain management per primary care team. Thank you for the consult. We will sign off for now but we' ll be happy to revisit the patient upon request Status: Acute Time with Patient: Less than 30
[2017-04-14 21:07] LABS: Glucose,Whole Blood 120 mg/dL (75-99)
[2017-04-15] MEDS: SODIUM CHLORIDE 0.9% 1,000 ML IV SCH ×3 (03:31→18:29)
[2017-04-15 05:39] LABS: Glucose,Whole Blood 119 mg/dL (75-99)
[2017-04-15] MEDS: HYDROmorphone 1 MG/ML 1 ML SYRINGE IVP PRN ×2 (05:47→22:24)
[2017-04-15 06:48] LABS: Anisocytosis Moderate; Basophils # (A) 0.1 k/uL (0-0.2); Basophils % (A) 1 %; CH 22.8; CHCM 29.8; Eosinophils # (A) 0.2 k/uL (0-0.7); Eosinophils % (A) 2 %; HCT 22.4 % (34.0-46.0); HDW 4.77; Hypochromasia Marked; Luc # (Auto) 0.19; Luc % (Auto) 2; Lymphocytes # (A) 1.4 k/uL (1.0-4.8); Lymphocytes % (A) 15 %; MCH 23.4 pg (25.0-35.0); MCHC 30.5 g/dL (31.0-37.0); MCV 76.8 fL (80.0-100.0); Mean Platelet Volume 8.7; Microcytosis Moderate; Monocytes # (A) 0.7 k/uL (0-1.0); Monocytes % (A) 8 %; Neutrophils # (A) 6.8 k/uL (1.3-7.7); Neutrophils % (A) 73 %; Poikilocytosis Marked; RBC 2.92 m/uL (3.80-5.40); RDW 22.4 % (11.5-15.5); WBC 9.3 k/uL (3.8-10.6); WBC (Perox) 9.14
[2017-04-15 06:53] LABS: HGB 6.8 gm/dL (11.4-16.0)
[2017-04-15 07:40] LABS: Anion Gap 8 mmol/L; Blood Urea Nitrogen 22 mg/dL (7-17); Calcium 8.6 mg/dL (8.4-10.2); Carbon Dioxide 22 mmol/L (22-30); Chloride 114 mmol/L (98-107); Glucose 94 mg/dL (74-99); Magnesium 1.9 mg/dL (1.6-2.3); Non-African American GFR(MDRD) 58 (>60 ml/min/1.73 sqM); Phosphorous 3.2 mg/dL (2.5-4.5); Potassium 3.8 mmol/L (3.5-5.1); Sodium 144 mmol/L (137-145)
[2017-04-15] MEDS: ESOMEPRAZOLE 20 MG in SODIUM CHLORIDE 0.9% 50 ML IVPB SCH (10:37)
--- NOTE | 2017-04-15 10:50 | CONS ---
Reason for consultation: Anemia. Possible capsule endoscopy. HISTORY OF PRESENT ILLNESS: The patient is a 72 -year-old pleasant lady admitted to the hospital because of severe symptomatic anemia and hemoglobin of 7.5 gmDL. Apparently she was feeling dizzy, tired, for the last two days prior to hospitalization. She was trying to walk and tripped and almost fell down. Her brought her to the emergency and was noted to have hemoglobin 7.2 and was admitted to the hospital for further evaluation and treatment. She received one unit of blood transfusion. This morning it is 6.8 gmDL. She was evaluated by Dr. Posadas and underwent an upper endoscopy as well as colonoscopy on February 22 that showed some gastritis and small hyperplastic polyp in the left colon. We are requested to see her for small bowel capsule endoscopy to evaluate for source of occult GI blood loss. The patient denies any active bleeding. Reports no nausea or vomiting. She has some abdominal discomfort. No rectal bleeding or melena. Past medical history is significant for hypertension, hypercholesterolemia, hypothyroidism, anxiety, degenerative joint disease. Medications at home: 1. Feosol. 2. Norvasc. 3. Losartan. 4. Synthroid. 5. Vitamin D. 6. Lipitor. 7. Ecotrin. SOCIAL HISTORY: No history of smoking. No alcohol use. FAMILY HISTORY: Unremarkable. PAST SURGICAL HISTORY: Recent EGD, colonoscopy on February 22 that was unremarkable. Hysterectomy, breast surgery. REVIEW OF SYSTEMS: Cardiopulmonary: No chest pain or shortness of breath. : no dysuria or hematuria. Musculoskeletal: Unremarkable. Skin: Unremarkable. Endocrine: Unremarkable. Psychiatric: Unremarkable. Neurological : Unremarkable. ENT/vision: unremarkable. Constitutional: No recent weight loss. No fevers, chills or night sweats. On physical examination, she appears comfortable in no acute distress. Vital signs stable. Blood pressure 154/66, pulse rate 73, temperature 97, HEENT: Examination unremarkable. Conjunctivae pink. Sclerae anicteric. Oral cavity no lesions. Neck no JVD or lymph node enlargement. Chest clear to auscultation. Heart regular rate and rhythm. Abdomen soft, bowel sounds are positive. No organomegaly. Extremities: No pedal edema. Skin no rashes. Neurological: Alert and oriented times three. No focal deficits. Labs from this today: Hemoglobin 7.2 down to 6.8 today. WBC 9.3, platelets are 255. BUN 22, creatinine 0.95. IMPRESSION: Microcytic hypochromic anemia secondary to iron deficiency, clinically no evidence of active ongoing bleeding. She had an EGD and colonoscopy by Dr. Posadas six weeks ago which was unremarkable. Most likely, we are dealing with blood loss from small bowel source of bleeding. RECOMMENDATIONS: We will proceed with small bowel capsule endoscopy tomorrow. Discussed with the patient, the risks, benefits and complications and she is agreeable to it. Thank you for this consultation. RAYRAY
[2017-04-15 11:27] LABS: Glucose,Whole Blood 134 mg/dL (75-99)
--- NOTE | 2017-04-15 11:56 | P.PN ---
Progress Note - Text Dr. Guidry has seen the patient. The plan is for a capsule endoscopy to be performed tomorrow
--- NOTE | 2017-04-15 13:43 | P.PN ---
Subjective This is a 72-year-old female patient came into the hospital because of generalized weakness. The patient was feeling very weak and she had a fall and she tried to get up and she fell again and she sustained a fracture to her left ankle. She was also found to be anemic with a hemoglobin of 6.7 . She denies having any nausea or vomiting. She denied having any hematemesis. No bright red blood per rectum. No melena. No hematochezia. She came in to the ICU where she was given a unit of packed RBC and hemoglobin came up to 7.2. Denies alcoholism. Most of liver disease. No history of any intake of nonsteroidal anti-inflammatory medication. The patient was recently in [facility] and she was investigated for GI bleed and anemia. She underwent upper and lower endoscopies and she was found to have some mild gastritis with a positive H. pylori. She was also found to have a colonic polyp that was removed and do not to be benign. She is on oral iron. Her stool has been somewhat dark. Currently she is hemodynamically stable however she had a systolic blood pressure in the mid 90s at a time of arrival. She felt dizzy at that time and this has recovered. She denies having any chest pain. No focal neurological deficit. She has a large umbilical hernia that is easily reducible. Her last bowel movement was yesterday and no bowel movements for today. As mentioned, she fractured her left fibula with lateral posterior displacement of them metaphalangeal level and she'll be seen by orthopedic surgery. No chest pain. No shortness of breath. No angina. No change in mental status. No focal logical deficits at this point. The patient is seen again today 04/15/2017 in follow-up on the selective care unit. She is resting quite comfortably in bed. She is awake and alert in no acute distress. She is more comfortable today as compared to yesterday. She did have some complaints of left upper extremity discomfort. Orthopedics is on the case as well. Less discomfort in her fractured left ankle. She denies any shortness of breath cough or congestion. No chills or night sweats. No chest pain. Her hemoglobin has dropped back down to 6.8. GI services are on the case. Objective - Vital Signs Vital signs: Vital Signs Temp 97.8 F 04/15/17 03:54 Pulse 70 04/15/17 08:00 Resp 16 04/15/17 08:00 BP 111/56 04/15/17 08:00 Pulse Ox 98 04/15/17 03:54 Intake & Output 04/14/17 04/15/17 04/15/17 18:59 06:59 18:59 Intake Total 1200 800 460 Output Total 545 1000 450 Balance 655 -200 10 Weight 84.5 kg Intake: IV 1200 800 .9 1200 800 Oral 460 Output: Urine 545 1000 450 Other: Voiding Method Indwelling Catheter Indwelling Catheter Indwelling Catheter # Voids 1 - Exam Patient is pale, comfortable likely distress.Head exam was generally normal. There was no scleral icterus or corneal arcus. Mucous membranes were moist.Neck was supple and without jugular venous distension, thyromegaly, or carotid bruits. Carotids were easily palpable bilaterally. There was no adenopathy. Lung sounds are diminished bilaterally otherwise clear. No wheezes or rhonchi or any crackles.Cardiac exam revealed the PMI to be normally situated and sized. The rhythm was regular and no extrasystoles were noted during several minutes of auscultation. The first and second heart sounds were normal and physiologic splitting of the second heart sound was noted. There were no murmurs , rubs, clicks, or gallops. Abdomen reveals an umbilical hernia which is large and it is easily reducible. No signs of incarceration or strangulation.Abdominal exam revealed normal bowel sounds. The abdomen was soft , non-tender, and without masses, organomegaly, or appreciable enlargement of the abdominal aorta.Examination of the extremities revealed easily palpable radial, femoral and pedal pulses. There was no cyanosis, clubbing or edema. - Labs CBC & Chem 7: 04/15/17 05:47 04/15/17 05:47 Labs: Abnormal Lab Results - Last 24 Hours (Table) 04/14/17 04/15/17 04/15/17 Range/Units 21:06 05:36 05:47 RBC 2.92 L (3.80-5.40) m/uL Hgb 6.8 L* (11.4-16.0) gm/dL Hct 22.4 L (34.0-46.0) % MCV 76.8 L (80.0-100.0) fL MCH 23.4 L (25.0-35.0) pg MCHC 30.5 L (31.0-37.0) g/dL RDW 22.4 H (11.5-15.5) % Chloride (98-107) mmol/L BUN (7-17) mg/dL POC Glucose (mg/dL) 120 H 119 H (75-99) mg/dL 04/15/17 04/15/17 Range/Units 05:47 11:25 RBC (3.80-5.40) m/uL Hgb (11.4-16.0) gm/dL Hct (34.0-46.0) % MCV (80.0-100.0) fL MCH (25.0-35.0) pg MCHC (31.0-37.0) g/dL RDW (11.5-15.5) % Chloride 114 H (98-107) mmol/L BUN 22 H (7-17) mg/dL POC Glucose (mg/dL) 134 H (75-99) mg/dL Assessment and Plan Plan: Assessment 1 chronic microcytic anemia probably later to a low-grade gastrointestinal blood loss. Rule out underlying iron deficiency. Patient is a positive guaiac. The patient was borderline hypotensive and dizzy and weak at the time of arrival. She received a unit of packed RBC and hemoglobin came up from 6.7 up to 7.2. Currently 6.8. She is not having any complaints for now. 2 antral gastritis and colonic polyps with a positive H. pylori based on the recent EGD and colonoscopy 3 umbilical hernia, reducible 4 recent fall with fracture of the left fibular 5 hypertension 6 hypothyroidism 7 hypertension 8 borderline hypotension at time of arrival to the hospital which improved with fluids. Plan The patient was seen and evaluated by Dr. Bethea. She remains hemodynamically stable. She may require more packed red blood cell transfusions. The plan is for capsule endoscopy in the morning. We'll continue to monitor her hemoglobin. We'll continue to follow.
[2017-04-15 16:33] LABS: Glucose,Whole Blood 109 mg/dL (75-99)
[2017-04-15] MEDS ORDERED: MAGNESIUM CITRATE 296 ML BOTTLE PO ONE (19:00)
[2017-04-15 20:38] LABS: Glucose,Whole Blood 117 mg/dL (75-99)
[2017-04-16] MEDS: SODIUM CHLORIDE 0.9% 1,000 ML IV SCH ×4 (04:36→19:54)
[2017-04-16 05:54] LABS: Glucose,Whole Blood 170 mg/dL (75-99)
[2017-04-16 06:19] LABS: Anisocytosis Moderate; Basophils % (A) 0 %; CH 24.3; CHCM 30.5; Eosinophils # (A) 0.1 k/uL (0-0.7); Eosinophils % (A) 1 %; HCT 23.3 % (34.0-46.0); HDW 4.77; Hypochromasia Marked; Luc # (Auto) 0.19; Luc % (Auto) 3; Lymphocytes # (A) 0.8 k/uL (1.0-4.8); Lymphocytes % (A) 11 %; MCV 79.8 fL (80.0-100.0); Mean Platelet Volume 7.9; Microcytosis Slight; Monocytes # (A) 0.6 k/uL (0-1.0); Monocytes % (A) 7 %; Neutrophils # (A) 5.9 k/uL (1.3-7.7); Neutrophils % (A) 78 %; Poikilocytosis Marked; RBC 2.92 m/uL (3.80-5.40); RDW 21.6 % (11.5-15.5); WBC 7.6 k/uL (3.8-10.6); WBC (Perox) 8.02
[2017-04-16 06:30] LABS: Anion Gap 7 mmol/L; Blood Urea Nitrogen 22 mg/dL (7-17); Calcium 8.6 mg/dL (8.4-10.2); Carbon Dioxide 26 mmol/L (22-30); Chloride 110 mmol/L (98-107); Glucose 136 mg/dL (74-99); Magnesium 3.1 mg/dL (1.6-2.3); Non-African American GFR(MDRD) >60 (>60 ml/min/1.73 sqM); Phosphorous 2.7 mg/dL (2.5-4.5); Sodium 143 mmol/L (137-145)
[2017-04-16 06:46] LABS: Potassium 2.9 mmol/L (3.5-5.1)
[2017-04-16] MEDS ORDERED: Potassium Replacement Protocol 1 EACH MISC MISCELLANE PRN (06:47)
[2017-04-16] MEDS ORDERED: SIMETHICONE 40 MG/0.6 ML DROPS 2,000 MG/30 ML BOTTLE PO ONE (07:15)
--- NOTE | 2017-04-16 07:35 | XR ---
Left forearm HISTORY: Fall 2 days prior, trauma and pain 2 views of the left forearm No comparisons Nonstandard frontal view. Intravenous tubing noted in the antecubital fossa. Remodeling present at the radiocarpal joint. Alignment is maintained. Bone mineralization reduced. IMPRESSION: No fracture or dislocation.
[2017-04-16] MEDS: POTASSIUM CHLORIDE 10 MEQ, LIDOCAINE 2% INJ 10 MG in SODIUM CHLORIDE 0.9% 100 ML IV SCH ×3 (08:04→11:14)
--- NOTE | 2017-04-16 09:06 | PN ---
DATE OF SERVICE: 04/15/2017 CHIEF COMPLAINT: GI bleed, syncope, fracture of the left fibula. HISTORY OF PRESENT ILLNESS: This lady is just about the same. She is going to go for her endoscopic studies to look for the source of GI bleeding. Hemoglobin has dropped again to around 6.8. She has had no chest pain or shortness of breath. She has been complaining of some pain on the left forearm. PHYSICAL EXAM: Vital signs are normal. She is pale. HEENT is normal. Chest is clear. The cardiac exam is normal and the abdomen is soft and nontender. Extremities demonstrate the compression wrap on the left lower leg. Her left forearm appears to be normal. There is no cellulitis present. No deformity. Pulses are adequate. She has good movement and sensation in the hand. There is tenderness generalized throughout the forearm. IMPRESSION: 1. Gastrointestinal bleed. 2. Blood loss anemia. 3. Fracture left fibula. 4. Pain in the left forearm, etiology unknown. PLAN: 1. X-rays of the left forearm. 2. One unit of packed cells. 3. Consult orthopedics regarding left forearm pain. RAYRAY
--- NOTE | 2017-04-16 11:03 | P.PN ---
Subjective Principal diagnosis: Acute on chronic microcytic anemia secondary to low-grade gastrointestinal blood loss. This is a 72-year-old female patient came into the hospital because of generalized weakness. The patient was feeling very weak and she had a fall and she tried to get up and she fell again and she sustained a fracture to her left ankle. She was also found to be anemic with a hemoglobin of 6.7 . She denies having any nausea or vomiting. She denied having any hematemesis. No bright red blood per rectum. No melena. No hematochezia. She came in to the ICU where she was given a unit of packed RBC and hemoglobin came up to 7.2. Denies alcoholism. Most of liver disease. No history of any intake of nonsteroidal anti-inflammatory medication. The patient was recently in [facility] and she was investigated for GI bleed and anemia. She underwent upper and lower endoscopies and she was found to have some mild gastritis with a positive H. pylori. She was also found to have a colonic polyp that was removed and do not to be benign. She is on oral iron. Her stool has been somewhat dark. Currently she is hemodynamically stable however she had a systolic blood pressure in the mid 90s at a time of arrival. She felt dizzy at that time and this has recovered. She denies having any chest pain. No focal neurological deficit. She has a large umbilical hernia that is easily reducible. Her last bowel movement was yesterday and no bowel movements for today. As mentioned, she fractured her left fibula with lateral posterior displacement of them metaphalangeal level and she'll be seen by orthopedic surgery. No chest pain. No shortness of breath. No angina. No change in mental status. No focal logical deficits at this point. The patient is seen again today 04/15/2017 in follow-up on the selective care unit. She is resting quite comfortably in bed. She is awake and alert in no acute distress. She is more comfortable today as compared to yesterday. She did have some complaints of left upper extremity discomfort. Orthopedics is on the case as well. Less discomfort in her fractured left ankle. She denies any shortness of breath cough or congestion. No chills or night sweats. No chest pain. Her hemoglobin has dropped back down to 6.8. GI services are on the case. Seen again today on 04/16/2017, patient received a unit of packed RBCs yesterday , received a total of 3 units since admission, hemoglobin today is 7, patient had her capsule endoscopy initiated today. Pulmonary-shah, no cough no wheezing no shortness of breath no chest pain. Continues to have follow-up with orthopedics regarding her left upper extremity discomfort. Patient is being followed by gastroenterology regarding her presumptive ongoing GI blood losses. Objective - Vital Signs Vital signs: Vital Signs Temp 99.2 F 04/16/17 08:00 Pulse 87 04/16/17 08:00 Resp 20 04/16/17 08:00 BP 117/63 04/16/17 08:00 Pulse Ox 98 04/16/17 08:00 Intake & Output 04/15/17 04/16/17 04/16/17 18:59 06:59 18:59 Intake Total 460 860 Output Total 775 Balance -315 860 Weight 85 kg Intake: Intake, IV Titration 300 Amount Sodium Chloride 0.9% 1, 300 000 ml @ 150 mls/hr IV . Q6H40M [facility] Rx#:[id number] Oral 460 250 Blood Product 0 310 Rc As-1 Unit 0 310 [id number] Output: Urine 775 Other: Voiding Method Indwelling Catheter Indwelling Catheter Indwelling Catheter # Voids 1 - Exam Patient is pale, comfortable likely distress.Head exam was generally normal. There was no scleral icterus or corneal arcus. Mucous membranes were moist.Neck was supple and without jugular venous distension, thyromegaly, or carotid bruits. Carotids were easily palpable bilaterally. There was no adenopathy. Lung sounds are diminished bilaterally otherwise clear. No wheezes or rhonchi or any crackles.Cardiac exam revealed the PMI to be normally situated and sized. The rhythm was regular and no extrasystoles were noted during several minutes of auscultation. The first and second heart sounds were normal and physiologic splitting of the second heart sound was noted. There were no murmurs , rubs, clicks, or gallops. Abdomen reveals an umbilical hernia which is large and it is easily reducible. No signs of incarceration or strangulation.Abdominal exam revealed normal bowel sounds. The abdomen was soft , non-tender, and without masses, organomegaly, or appreciable enlargement of the abdominal aorta.Examination of the extremities revealed easily palpable radial, femoral and pedal pulses. There was no cyanosis, clubbing or edema. - Labs CBC & Chem 7: 04/16/17 05:30 04/16/17 05:30 Labs: Abnormal Lab Results - Last 24 Hours (Table) 04/13/17 04/15/17 04/15/17 Range/Units 19:44 11:25 16:32 RBC (3.80-5.40) m/uL Hgb (11.4-16.0) gm/dL Hct (34.0-46.0) % MCV (80.0-100.0) fL MCH (25.0-35.0) pg MCHC (31.0-37.0) g/dL RDW (11.5-15.5) % Lymphocytes # (1.0-4.8) k/uL Potassium (3.5-5.1) mmol/L Chloride (98-107) mmol/L BUN (7-17) mg/dL Glucose (74-99) mg/dL POC Glucose (mg/dL) 134 H 109 H (75-99) mg/dL Magnesium (1.6-2.3) mg/dL Crossmatch See Detail 04/15/17 04/16/17 04/16/17 Range/Units 20:36 05:30 05:30 RBC 2.92 L (3.80-5.40) m/uL Hgb 7.0 L* (11.4-16.0) gm/dL Hct 23.3 L (34.0-46.0) % MCV 79.8 L (80.0-100.0) fL MCH 24.0 L (25.0-35.0) pg MCHC 30.0 L (31.0-37.0) g/dL RDW 21.6 H (11.5-15.5) % Lymphocytes # 0.8 L (1.0-4.8) k/uL Potassium 2.9 L* (3.5-5.1) mmol/L Chloride 110 H (98-107) mmol/L BUN 22 H (7-17) mg/dL Glucose 136 H (74-99) mg/dL POC Glucose (mg/dL) 117 H (75-99) mg/dL Magnesium 3.1 H (1.6-2.3) mg/dL Crossmatch 04/16/17 Range/Units 05:52 RBC (3.80-5.40) m/uL Hgb (11.4-16.0) gm/dL Hct (34.0-46.0) % MCV (80.0-100.0) fL MCH (25.0-35.0) pg MCHC (31.0-37.0) g/dL RDW (11.5-15.5) % Lymphocytes # (1.0-4.8) k/uL Potassium (3.5-5.1) mmol/L Chloride (98-107) mmol/L BUN (7-17) mg/dL Glucose (74-99) mg/dL POC Glucose (mg/dL) 170 H (75-99) mg/dL Magnesium (1.6-2.3) mg/dL Crossmatch Assessment and Plan Plan: 1 chronic microcytic anemia probably later to a low-grade gastrointestinal blood loss. Rule out underlying iron deficiency. Patient is a positive guaiac. The patient was borderline hypotensive and dizzy and weak at the time of arrival. Patient received a total of 3 units of packed RBCs since admission , hemoglobin today is 7.0. Capsule endoscopy was initiated. 2 antral gastritis and colonic polyps with a positive H. pylori based on the recent EGD and colonoscopy 3 umbilical hernia, reducible 4 recent fall with fracture of the left fibular 5 hypertension 6 hypothyroidism 7 hypertension 8 borderline hypotension at time of arrival to the hospital which improved with fluids. Recommendation: Continue present supportive care measures, will continue to follow. Time with Patient: Less than 30
[2017-04-16 11:25] LABS: Glucose,Whole Blood 134 mg/dL (75-99)
--- NOTE | 2017-04-16 11:27 | PN ---
The patient is a 72 -year-old pleasant lady admitted to the hospital with severe symptomatic anemia. She had an EGD and colonoscopy by Dr. Posadas six weeks ago which was unremarkable. She is hence scheduled for small bowel capsule endoscopy that was done early this morning. She is doing well. She reports no symptoms. She denies any rectal bleeding or melena. No nausea or vomiting. On physical examination, she appears comfortable. No apparent distress. Vital signs were stable. Blood pressure 125/60. Pulse 67. Temperature 98.3. HEENT examination unremarkable. Conjunctivae pink. Sclerae anicteric. Oral cavity no lesions. Neck no JVD or lymph node enlargement. Chest is clear to auscultation. Heart is regular rate and rhythm. Abdomen is soft. Bowel sounds were positive. No organomegaly. Extremities: No pedal edema. Skin: No rashes. Neurological: Alert and oriented times three. No focal deficits. Labs done today: WBC 7.6, hemoglobin 7. Platelets 222. BUN 22, creatinine 0.9. IMPRESSION: Severe symptomatic anemia with a negative endoscopic workup by Dr. Posadas six weeks ago. Clinically no evidence of active ongoing bleeding. RECOMMENDATIONS: 1. The patient was scheduled for small bowel endoscopy that was done this morning. 2. Continue on a clear liquid diet. 3. We will follow her closely during her hospital stay. [facility]
--- NOTE | 2017-04-16 11:34 | P.PN ---
Progress Note - Text Awaiting capsule endoscopy
[2017-04-16] MEDS: ESOMEPRAZOLE 20 MG in SODIUM CHLORIDE 0.9% 50 ML IVPB SCH (12:38)
--- NOTE | 2017-04-16 13:03 | P.CNOR ---
History of Present Illness - [facility] Consult date: 04/16/17 Requesting physician: Sebastian Miguel Consult reason: other (Left forearm pain) History of present illness: Patient is a pleasant 72-year-old female who is seen and examined at the bedside for further consultation after we giovanni consulted for left upper extremity pain. Patient sustained a fall multiple days ago resulting in a left distal fibular fracture. She's been seen and examined by Roosevelt Agarwal PA-C who is working with Dr. Xavi Mishra. A Premium Equalizer boot was ordered for the left lower extremity. This boot has not yet been delivered. Patient states at the bedside during physical examination she is not currently experiencing any significant left upper extremity pain. She states she was yesterday but this pain resolved after receiving pain medication. She states she had some left upper extremity pain prior to her fall. She states she feels she may have had increased pain to the left arm yesterday due to IV placement. She has no current complaints of her left upper extremity. In regards to her left lower extremity, the premium equalizer boot has not been delivered or fitted appropriately. Per nursing, this boot is supposed to be delivered tomorrow. Patient is not currently complaining of significant pain for the left lower extremity. She continues to be seen by gastroenterology/general surgery. She is currently has a camera placed taking pictures throughout her GI tract to determine a cause of her GI bleeding. She continues to have difficulty with anemia. Her hemoglobin this morning is currently 7.0. Continues to be followed by Dr. Posadas and Dr. Bethea for treatment and evaluation. Past Medical History Past Medical History: Hyperlipidemia, Hypertension, Thyroid Disorder Additional Past Medical History / Comment(s): Chronic anemia, antral gastritis and colonic polyps based on the most recent EGD and colonoscopy done at [facility] 02/17/2017, positive H. pylori, hypertension, hyperlipidemia , hypothyroidism History of Any Multi-Drug Resistant Organisms: None Reported Past Surgical History: Breast Surgery, Hysterectomy Past Psychological History: No Psychological Hx Reported Smoking Status: Never smoker Past Alcohol Use History: None Reported Past Drug Use History: None Reported Medications and Allergies Home Medications Medication Instructions Recorded Confirmed Type Aspirin EC [Ecotrin] 81 mg PO DAILY 03/10/16 04/13/17 History Atorvastatin [Lipitor] 40 mg PO DAILY 03/10/16 04/13/17 History Chlorthalidone [Hygroton] 25 mg PO DAILY 03/10/16 04/13/17 History Cholecalciferol [Vitamin D3] 2,000 unit PO DAILY 03/10/16 04/13/17 History Levothyroxine Sodium [Synthroid] 100 mcg PO DAILY 03/10/16 04/13/17 History Losartan Potassium 100 mg PO DAILY 03/10/16 04/13/17 History amLODIPine [Norvasc] 5 mg PO DAILY 03/10/16 04/13/17 History Ferrous Sulfate [Feosol] 325 mg PO TID 04/13/17 04/13/17 History Allergies Allergy/AdvReac Type Severity Reaction Status Date / Time No Known Allergies Allergy Verified 04/13/17 19:18 Physical Examination Physical Exam: Patient is awake, alert, and oriented 3 Vital signs stable Good chest excursion with deep inspiration and expiration; O2 nasal cannula intact Abdomen soft nontender Device currently intact over the lower chest and upper abdomen placed by gastroenterology which is currently taking pictures of her GI tract Examination of the left upper extremity shows placement of an IV near the antecubital fossa; No significant evidence of erythema, bruising, laceration, or obvious signs of infection of left upper extremity Adequate range of motion of the left upper extremity including left shoulder, elbow, wrist, and all fingers and thumb of the left hand without significant difficulty She does have some reduction in range of motion of left elbow due to IV placement No significant pain with palpation over the left forearm No obvious or significant swelling over the left forearm Neurovascular intact left upper extremity Splint and Kalia wrap intact over the left lower extremity Neurovascularly intact left lower extremity Patient able to wiggle toes of the left foot without significant difficulty No pain with palpation about the left knee Results Pertinent studies: X-rays of the left forearm: No evidence of fracture or dislocation; Alignment appears to be adequately maintained X-rays of the left ankle: Comminuted distal left fibular fracture with lateral posterior displacement at the metaphyseal level; no evidence of dislocation - Labs Labs: Abnormal Lab Results - Last 24 Hours (Table) 04/13/17 04/15/17 04/15/17 Range/Units 19:44 16:32 20:36 RBC (3.80-5.40) m/uL Hgb (11.4-16.0) gm/dL Hct (34.0-46.0) % MCV (80.0-100.0) fL MCH (25.0-35.0) pg MCHC (31.0-37.0) g/dL RDW (11.5-15.5) % Lymphocytes # (1.0-4.8) k/uL Potassium (3.5-5.1) mmol/L Chloride (98-107) mmol/L BUN (7-17) mg/dL Glucose (74-99) mg/dL POC Glucose (mg/dL) 109 H 117 H (75-99) mg/dL Magnesium (1.6-2.3) mg/dL Crossmatch See Detail 04/16/17 04/16/17 04/16/17 Range/Units 05:30 05:30 05:52 RBC 2.92 L (3.80-5.40) m/uL Hgb 7.0 L* (11.4-16.0) gm/dL Hct 23.3 L (34.0-46.0) % MCV 79.8 L (80.0-100.0) fL MCH 24.0 L (25.0-35.0) pg MCHC 30.0 L (31.0-37.0) g/dL RDW 21.6 H (11.5-15.5) % Lymphocytes # 0.8 L (1.0-4.8) k/uL Potassium 2.9 L* (3.5-5.1) mmol/L Chloride 110 H (98-107) mmol/L BUN 22 H (7-17) mg/dL Glucose 136 H (74-99) mg/dL POC Glucose (mg/dL) 170 H (75-99) mg/dL Magnesium 3.1 H (1.6-2.3) mg/dL Crossmatch 04/16/17 Range/Units 11:23 RBC (3.80-5.40) m/uL Hgb (11.4-16.0) gm/dL Hct (34.0-46.0) % MCV (80.0-100.0) fL MCH (25.0-35.0) pg MCHC (31.0-37.0) g/dL RDW (11.5-15.5) % Lymphocytes # (1.0-4.8) k/uL Potassium (3.5-5.1) mmol/L Chloride (98-107) mmol/L BUN (7-17) mg/dL Glucose (74-99) mg/dL POC Glucose (mg/dL) 134 H (75-99) mg/dL Magnesium (1.6-2.3) mg/dL Crossmatch H & H 04/13/17 04/14/17 04/15/17 Range/Units 18:42 04:15 05:47 Hgb 6.7 L* 7.2 L 6.8 L* (11.4-16.0) gm/dL Hct 23.0 L 24.0 L 22.4 L (34.0-46.0) % 04/16/17 Range/Units 05:30 Hgb 7.0 L* (11.4-16.0) gm/dL Hct 23.3 L (34.0-46.0) % Coagulation 04/13/17 Range/Units 19:44 INR 1.1 (<1.2) Result Diagrams: 04/16/17 05:30 04/16/17 05:30 Assessment and Plan (1) Closed left fibular fracture Status: Acute (2) Status post fall Status: Acute (3) Forearm pain Status: Acute (4) Anemia Status: Acute (5) GI bleed Status: Acute Plan: Assessment: Left forearm pain Comminuted distal left fibular fracture status post fall Anemia GI Bleed Plan: 1. In terms of the patient's left forearm pain, we are not currently planning for any further treatment or evaluation. At the bedside during physical examination, patient seemed surprised why she is being examination for her left forearm. She denies any current pain or difficulty with her entire left upper extremity. We'll plan with conservative treatment for the left forearm. In regards to the left lower extremity for her comminuted left distal fibular fracture, we are currently waiting for a premium equalizer boot to be delivered and fitted appropriately. This should take place tomorrow. Once this boot is fitted appropriately, the patient will continue to remain nonweightbearing on the left lower extremity. She should keep this boot intact at all times. She may elevate and apply ice for the left lower extremity for comfort and support as needed. We'll plan to have her follow-up with Dr. Xavi Mishra for further evaluation and treatment in the outpatient setting in approximately 1 week. 2. Patient will continue to be followed by Dr. Posadas and Dr. Bethea for treatment and evaluation for her other medical diagnoses including anemia 3. From an orthopedic standpoint, patient is clear for discharge once cleared by medicine and general surgery/gastroenterology 4. Following discharge, patient will follow up with Dr. Mishra at [facility] in approximately 1 week for further evaluation and treatment 5. I will discuss this patient in detail with Dr. John Al Time with Patient: Less than 30
[2017-04-16 16:27] LABS: Glucose,Whole Blood 119 mg/dL (75-99)
[2017-04-16 19:06] LABS: Anisocytosis Moderate; Basophils % (A) 1 %; CH 25.1; CHCM 31.6; Eosinophils # (A) 0.1 k/uL (0-0.7); Eosinophils % (A) 1 %; HCT 25.2 % (34.0-46.0); HDW 4.86; Hypochromasia Marked; Luc # (Auto) 0.25; Luc % (Auto) 3; Lymphocytes # (A) 1.2 k/uL (1.0-4.8); Lymphocytes % (A) 14 %; MCH 25.4 pg (25.0-35.0); MCHC 31.8 g/dL (31.0-37.0); MCV 79.7 fL (80.0-100.0); Mean Platelet Volume 7.7; Microcytosis Slight; Monocytes # (A) 0.7 k/uL (0-1.0); Monocytes % (A) 7 %; Neutrophils # (A) 6.7 k/uL (1.3-7.7); Neutrophils % (A) 75 %; Poikilocytosis Marked; RBC 3.17 m/uL (3.80-5.40); RDW 20.6 % (11.5-15.5); WBC (Perox) 9.21
[2017-04-16 20:55] LABS: Glucose,Whole Blood 126 mg/dL (75-99)
[2017-04-17] MEDS: SODIUM CHLORIDE 0.9% 1,000 ML IV SCH ×4 (00:10→21:06)
[2017-04-17 06:11] LABS: Glucose,Whole Blood 121 mg/dL (75-99)
[2017-04-17 06:22] LABS: Anisocytosis Moderate; Basophils % (A) 1 %; CHCM 30.7; Eosinophils # (A) 0.2 k/uL (0-0.7); Eosinophils % (A) 2 %; HCT 23.1 % (34.0-46.0); HDW 4.89; HGB 7.1 gm/dL (11.4-16.0); Hypochromasia Marked; Luc # (Auto) 0.18; Luc % (Auto) 3; Lymphocytes # (A) 1.2 k/uL (1.0-4.8); Lymphocytes % (A) 19 %; MCH 25.2 pg (25.0-35.0); MCHC 30.9 g/dL (31.0-37.0); MCV 81.5 fL (80.0-100.0); Mean Platelet Volume 7.7; Microcytosis Slight; Monocytes # (A) 0.4 k/uL (0-1.0); Monocytes % (A) 6 %; Neutrophils # (A) 4.6 k/uL (1.3-7.7); Neutrophils % (A) 70 %; Poikilocytosis Marked; RBC 2.83 m/uL (3.80-5.40); RDW 20.5 % (11.5-15.5); WBC 6.5 k/uL (3.8-10.6); WBC (Perox) 6.87
[2017-04-17 06:37] LABS: Anion Gap 8 mmol/L; Blood Urea Nitrogen 23 mg/dL (7-17); Carbon Dioxide 24 mmol/L (22-30); Chloride 111 mmol/L (98-107); Glucose 102 mg/dL (74-99); Magnesium 2.5 mg/dL (1.6-2.3); Non-African American GFR(MDRD) >60 (>60 ml/min/1.73 sqM); Phosphorous 2.5 mg/dL (2.5-4.5); Potassium 3.2 mmol/L (3.5-5.1); Sodium 143 mmol/L (137-145)
[2017-04-17] MEDS: ESOMEPRAZOLE 20 MG in SODIUM CHLORIDE 0.9% 50 ML IVPB SCH (08:58)
[2017-04-17] MEDS ORDERED: Potassium Replacement Protocol 1 EACH MISC MISCELLANE PRN ×2 (11:01→21:27)
[2017-04-17] MEDS: POTASSIUM CHLORIDE 10 MEQ, LIDOCAINE 2% INJ 10 MG in SODIUM CHLORIDE 0.9% 100 ML IV SCH ×4 (11:42→22:56)
--- NOTE | 2017-04-17 11:50 | PN ---
CHIEF COMPLAINT: Gastrointestinal bleed. HISTORY OF PRESENT ILLNESS: This lady is still passing melanotic stool and her hemoglobin is still around 7. She received a unit of packed cells last night. She is undergoing the capsule study right now. PHYSICAL EXAMINATION: She remains pale. Pulse is 85. Chest is clear. Cardiac exam is normal. The abdomen is soft and nontender. IMPRESSION: 1. Gastrointestinal bleed, source unknown. 2. Blood loss anemia. 3. Fracture left tibia. PLAN: 1. Transfuse another unit of packed cells. 2. Continue to look for source of GI blood loss. [facility]
[2017-04-17] MEDS: ONDANSETRON 4 MG/2 ML VIAL IVP PRN (11:55)
[2017-04-17] MEDS ORDERED: POTASSIUM CHLORIDE ER 20 MEQ TAB.ER PO SCH (12:00)
[2017-04-17 12:02] LABS: Glucose,Whole Blood 104 mg/dL (75-99)
[2017-04-17 17:22] LABS: Glucose,Whole Blood 102 mg/dL (75-99)
[2017-04-17 19:06] LABS: Anisocytosis Slight; CH 25.7; CHCM 30.8; HCT 25.8 % (34.0-46.0); HGB 8.3 gm/dL (11.4-16.0); Hypochromasia Marked; MCH 26.9 pg (25.0-35.0); MCHC 32.2 g/dL (31.0-37.0); MCV 83.7 fL (80.0-100.0); Mean Platelet Volume 7.5; Microcytosis Slight; Poikilocytosis Marked; RBC 3.08 m/uL (3.80-5.40); WBC 7.7 k/uL (3.8-10.6)
[2017-04-17 21:24] LABS: Glucose,Whole Blood 114 mg/dL (75-99)
--- NOTE | 2017-04-17 22:06 | PN ---
This is a patient who was admitted on April 13. She came in with a low-grade gastrointestinal bleed. She has a history of underlying iron deficiency anemia. The patient has received 3 units of PRBC since admission. She has a history of antral gastritis and colonic polyps and a previous history of H. pylori infection as proven by EGD and colonoscopy. She also has a history of umbilical hernia and recent fall with fracture of the left fibula, hypertension and hypothyroidism and borderline hypotension. Anyway, the patient seems to be doing better. She was seen by my partner yesterday. He agreed that the patient was improved. The patient apparently had her capsule endoscopy initiated yesterday. From the pulmonary standpoint, no shortness of breath, chest tightness, wheezing, cough, phlegm production. Current vital signs include temperature 98.9, heart rate 75, respiratory rate 19 , blood pressure 106/70, mean 82, and room-air saturation 97%. Appears in no acute distress. HEENT examination is grossly unremarkable. Mucous membranes are moist. No oral lesions. NECK: Supple. Full range of motion. No adenopathy, thyromegaly or neck vein distention. Cardiovascular examination reveals regular rhythm and rate. Not tachycardic. Heart rate in mid 70s. S1, S2 normal. Lungs reveal mostly clear breath sounds. No wheezes or rhonchi. No crackles. ABDOMEN: Soft. Bowel sounds are heard. No masses or tenderness. Extremities are intact. No cyanosis, clubbing or edema. Skin without rash. Neurologic examination is brief but non-focal. Labs are reviewed. White count 6.5, hemoglobin 7.1, hematocrit 23.1, platelet count 220,000. Sodium 143, potassium 3.2, chloride 111, CO2 24. BUN and creatinine were 23 and 0.8. No recent x-rays to review. Medications are reviewed. ASSESSMENT: 1. Gastrointestinal bleed with iron deficiency anemia, status post 3 units of PRBCs. 2. Status post capsule endoscopy. 3. Previous demonstration of antral gastritis and colonic polyps with a positive H. pylori test on recent EGD/colonoscopy. 4. Umbilical hernia. 5. Recent fall with fracture of the left fibula. 6. Hypertension. 7. Hypothyroidism. PLAN: The patient seems to be doing relatively well. Medications include esomeprazole 20 mg daily, [place] p.r.n. pain, Narcan, Zofran, potassium replacement and 0.9 IV. Will continue to follow. Prognosis is guarded. MTDD
[2017-04-17] MEDS: HYDROcodone/APAP 5-325MG 1 EACH TAB PO PRN (23:08)
[2017-04-18] MEDS: SODIUM CHLORIDE 0.9% 1,000 ML IV SCH ×4 (03:50→23:40)
[2017-04-18 06:02] LABS: Glucose,Whole Blood 115 mg/dL (75-99)
[2017-04-18 06:17] LABS: Anisocytosis Moderate; Basophils # (A) 0.1 k/uL (0-0.2); Basophils % (A) 1 %; CH 26.2; CHCM 31.1; Eosinophils # (A) 0.3 k/uL (0-0.7); Eosinophils % (A) 4 %; HCT 27.8 % (34.0-46.0); HDW 4.72; HGB 8.4 gm/dL (11.4-16.0); Hypochromasia Marked; Luc # (Auto) 0.22; Luc % (Auto) 4; Lymphocytes # (A) 1.2 k/uL (1.0-4.8); Lymphocytes % (A) 19 %; MCH 25.6 pg (25.0-35.0); MCHC 30.3 g/dL (31.0-37.0); MCV 84.4 fL (80.0-100.0); Mean Platelet Volume 8.3; Microcytosis Slight; Monocytes # (A) 0.4 k/uL (0-1.0); Monocytes % (A) 7 %; Neutrophils # (A) 4.2 k/uL (1.3-7.7); Neutrophils % (A) 66 %; Poikilocytosis Marked; RBC 3.29 m/uL (3.80-5.40); RDW 20.4 % (11.5-15.5); WBC 6.4 k/uL (3.8-10.6); WBC (Perox) 6.82
[2017-04-18 06:28] LABS: Anion Gap 6 mmol/L; Blood Urea Nitrogen 19 mg/dL (7-17); Carbon Dioxide 24 mmol/L (22-30); Chloride 114 mmol/L (98-107); Glucose 89 mg/dL (74-99); Magnesium 2.3 mg/dL (1.6-2.3); Non-African American GFR(MDRD) >60 (>60 ml/min/1.73 sqM); Phosphorous 2.5 mg/dL (2.5-4.5); Potassium 3.5 mmol/L (3.5-5.1); Sodium 144 mmol/L (137-145)
[2017-04-18] MEDS: ESOMEPRAZOLE 20 MG in SODIUM CHLORIDE 0.9% 50 ML IVPB SCH (09:18)
--- NOTE | 2017-04-18 09:40 | PN ---
CHIEF COMPLAINT: Persistent lower GI bleed and blood loss anemia. HISTORY OF PRESENT ILLNESS: This lady continues to remain pale. The capsule study is done. Hemoglobin is back down to 7.1. REVIEW OF SYSTEMS: She denies any neurologic problems, chest pain, shortness of breath, etc. PHYSICAL EXAM: Vital signs are unremarkable. She is pale. Chest is clear. Cardiac exam is normal. ABDOMEN: Soft, nontender. IMPRESSION: 1. Gastrointestinal bleeding, source unknown. 2. Blood loss anemia. PLAN: Await further recommendations from Gastroenterology or Surgery. If we cannot identify a source for this lady's bleeding, she should be transferred to tertiary hospital. We await their reading on the small bowel study as done by Gastroenterology. RAYRAY
--- NOTE | 2017-04-18 11:03 | CDI ---
In responding to this query, please exercise your independent professional judgment. The [facility] Coding Staff and Clinical Documentation Specialists appreciate your assistance in clarifying documentation, maintaining compliance with coding guidelines, accurately documenting patients condition and capturing severity of illness. The fact that a question is asked does not imply that any particular answer is desired or expected. Communication forms are a method of clarifying documentation and are not made part of the Legal Health Record. Thank you in advance for your clarification. Last Revision, July 2015 Abbey [facility] [address] [place] [address] Documentation Clarification Form Date: 04/18/2017 10:55:00 AM From: Tiffanie Lou RN, CCDS Admit Date: 04/13/2017 9:05:00 PM Patient Name: Sunitha Baltazar Visit Number: [id number] Dr. Sebastian Marucm diagnosis of anemia lacks specificity to accurately reflect your patients severity of condition and clarification is needed. Patient history/risk factors: H.Pyori with antral gastritis, A/C GIB Clinical Indicators: Blood Loss anemia d/t GI bleed is documented through out the medical record. Pulmonary: Irond Deficiency Anemia Hemoglobin: 6.7/7.2/6.8/7/8/7.1/8.3/8.4 Hematocrit: 23/24/22.4/23.3/25.2/23.1/25.8/27.8 Treatment: Labs AM Daily 4U PC TX 500 CC IVF Bolus followed by 150 cc/hr In order to capture the severity of condition, please clarify the type of anemia and etiology if known: Acute blood loss anemia Acute on chronic blood loss anemia Chronic blood loss anemia Iron deficiency anemia Nutritional anemia Unable to determine Other, please specify Please document in your progress notes and discharge summary in order to capture severity of illness and risk of mortality. Include clinical findings that support your diagnosis. FYI: Press F11 to launch patient chart. RAYRAY
[2017-04-18 11:55] LABS: Glucose,Whole Blood 95 mg/dL (75-99)
--- NOTE | 2017-04-18 12:08 | P.PN ---
Subjective Progress note dated 04/18/2017 72-year-old female admitted back on April 13. She came in with a GI bleed. She has a history of underlying iron deficiency anemia and here in the hospital received 3 units of PRBCs. She also has a history of antral gastritis and colonic polyps with a previous history also of H. pylori infection. The patient has a history of umbilicus hernia and a recent fall with fracture of the left fibula. She has a boot on and off. In addition she has she has a history of essential hypertension hypothyroidism and borderline hyperlipidemia. The patient did to have a capsule endoscopy performed. The results are pending. From our standpoint doing relatively well be seen only as needed. She 's had a few days in the ICU because of her on GI bleed and borderline hypotension. Objective - Vital Signs Vital signs: Vital Signs Temp 98.7 F 04/18/17 08:00 Pulse 78 04/18/17 08:30 Resp 17 04/18/17 08:30 BP 119/62 04/18/17 08:00 Pulse Ox 97 04/18/17 08:00 Intake & Output 04/17/17 04/18/17 04/18/17 18:59 06:59 18:59 Intake Total 430 2075 120 Output Total 1200 300 Balance -770 1775 120 Weight 88 kg 97.5 kg Intake: IV 1500 Sodium Chloride 0.9% 1, 1500 000 ml @ 150 mls/hr IV . Q6H40M ANAI Rx#:[id number] Intake, IV Titration 200 Amount Potassium Chloride 10 meq 100 Lidocaine 2% Inj 10 mg In Sodium Chloride 0.9% 100 ml @ 100 mls/hr IV Q1HR ANAI Rx#:[id number] Potassium Chloride 10 meq 100 Lidocaine 2% Inj 10 mg In Sodium Chloride 0.9% 100 ml @ 100 mls/hr IV Q1HR ANAI Rx#:[id number] Oral 120 120 Tube Feeding 375 Blood Product 310 Rc As-1 Unit 310 [id number] Output: Urine 1200 300 Other: Voiding Method Indwelling Catheter Indwelling Catheter Indwelling Catheter # Voids 1 - Exam No acute distress, oriented 3. HEENT examination is grossly unremarkable. Mucous membranes are moist. No oral lesions. Neck supple. Full range of motion. No adenopathy or thyromegaly. Neck veins are flat. Cardiovascular examination reveals regular rhythm rate. S1-S2 normal. No S3- S4 or murmur. She's not tachycardic. Lungs are clear breath sounds are equal. Wheezes or rhonchi. Abdomen soft bowel sounds are heard. No masses or tenderness. Extremities are intact. No cyanosis clubbing or edema. The left foot and ankle in a boot extremities are intact otherwise. Skin without rash. Neurologic examination is brief but nonfocal. - Labs CBC & Chem 7: 04/18/17 05:21 04/18/17 05:21 Labs: Abnormal Lab Results - Last 24 Hours (Table) 04/17/17 04/17/17 04/17/17 Range/Units 11:58 12:59 17:20 RBC (3.80-5.40) m/uL Hgb (11.4-16.0) gm/dL Hct (34.0-46.0) % MCHC (31.0-37.0) g/dL RDW (11.5-15.5) % Potassium (3.5-5.1) mmol/L Chloride (98-107) mmol/L BUN (7-17) mg/dL POC Glucose (mg/dL) 104 H 102 H (75-99) mg/dL Calcium (8.4-10.2) mg/dL Crossmatch See Detail 04/17/17 04/17/17 04/17/17 Range/Units 18:48 18:48 21:23 RBC 3.08 L (3.80-5.40) m/uL Hgb 8.3 L (11.4-16.0) gm/dL Hct 25.8 L (34.0-46.0) % MCHC (31.0-37.0) g/dL RDW 20.0 H (11.5-15.5) % Potassium 3.2 L (3.5-5.1) mmol/L Chloride (98-107) mmol/L BUN (7-17) mg/dL POC Glucose (mg/dL) 114 H (75-99) mg/dL Calcium (8.4-10.2) mg/dL Crossmatch 04/18/17 04/18/17 04/18/17 Range/Units 05:21 05:21 06:01 RBC 3.29 L (3.80-5.40) m/uL Hgb 8.4 L (11.4-16.0) gm/dL Hct 27.8 L (34.0-46.0) % MCHC 30.3 L (31.0-37.0) g/dL RDW 20.4 H (11.5-15.5) % Potassium (3.5-5.1) mmol/L Chloride 114 H (98-107) mmol/L BUN 19 H (7-17) mg/dL POC Glucose (mg/dL) 115 H (75-99) mg/dL Calcium 8.0 L (8.4-10.2) mg/dL Crossmatch Assessment and Plan (1) Anemia Status: Acute (2) Closed left fibular fracture Status: Acute (3) GI bleed Status: Acute (4) Status post fall Status: Acute Plan: Plan dated 04/18/2017 The patient seemed be doing relatively well. Her GI bleed seems to be relatively stable. She underwent capsule endoscopy. The results are pending. Because of her recent fall and left fibular fracture or bruit is noted on the left foot and ankle. Received 3 units of PRBCs in the intensive care unit where she spent about a day and a half or 2 days with a GI bleed and borderline hypotension. She also has a history of hypertension and hypothyroidism as well as umbilicus hernia. Finally, the patient was found to have antral gastritis and colonic polyps on recent EGD and colonoscopy. We'll see as needed. No additional recommendations are made. Her borderline hypotension which she first was admitted with GI bleed is resolved. No additional recommendations are made. Time with Patient: Less than 30
[2017-04-18] MEDS: POTASSIUM CHLORIDE ER 20 MEQ TAB.ER PO SCH ×2 (12:16→13:05)
--- NOTE | 2017-04-18 12:33 | P.PN ---
Subjective Principal diagnosis: Symptomatic anemia 72-year-old female admitted with severe symptomatic anemia with negative endoscopic workup approximately 6 weeks ago. No episodes of hematemesis hematochezia melena since admission. Small bowel capsule endoscopy preliminarily read this morning by Dr. Guidry with reports of active bleeding in the duodenum/early jejunum. Presently patient denies nausea vomiting or abdominal pain. Hemoglobin stable 8.4. Objective - Vital Signs Vital signs: Vital Signs Temp 98.7 F 04/18/17 08:00 Pulse 78 04/18/17 08:30 Resp 17 04/18/17 08:30 BP 119/62 04/18/17 08:00 Pulse Ox 97 04/18/17 08:00 Intake & Output 04/17/17 04/18/17 04/18/17 18:59 06:59 18:59 Intake Total 430 2075 120 Output Total 1200 300 Balance -770 1775 120 Weight 88 kg 97.5 kg Intake: IV 1500 Sodium Chloride 0.9% 1, 1500 000 ml @ 150 mls/hr IV . Q6H40M ANAI Rx#:[id number] Intake, IV Titration 200 Amount Potassium Chloride 10 meq 100 Lidocaine 2% Inj 10 mg In Sodium Chloride 0.9% 100 ml @ 100 mls/hr IV Q1HR ANAI Rx#:[id number] Potassium Chloride 10 meq 100 Lidocaine 2% Inj 10 mg In Sodium Chloride 0.9% 100 ml @ 100 mls/hr IV Q1HR ANAI Rx#:[id number] Oral 120 120 Tube Feeding 375 Blood Product 310 Rc As-1 Unit 310 [id number] Output: Urine 1200 300 Other: Voiding Method Indwelling Catheter Indwelling Catheter Indwelling Catheter # Voids 1 - Exam General appearance: The patient is alert, oriented, in no acute distress. HET: Head is normocephalic and atraumatic. Pupils are equal and reactive. Oropharynx is clear without lesions. Neck: Supple without lymphadenopathy. Trachea midline. Heart: S1 S2. Regular rate and rhythm. Lungs: No crackles or wheezes are heard. Abdomen: Soft, nontender, nondistended with bowel sounds. No peritoneal signs. No palpable organomegaly or masses. Extremities: Normal skin color and turgor. No cyanosis, rash, ulceration, clubbing, or edema. Radial and pedal pulses are 2/4 bilaterally. Chew with clear yellow urine. Neurological: No focal deficits. Strength and sensation are grossly intact. - Labs CBC & Chem 7: 04/18/17 05:21 04/18/17 05:21 Labs: Abnormal Lab Results - Last 24 Hours (Table) 04/17/17 04/17/17 04/17/17 Range/Units 12:59 17:20 18:48 RBC 3.08 L (3.80-5.40) m/uL Hgb 8.3 L (11.4-16.0) gm/dL Hct 25.8 L (34.0-46.0) % MCHC (31.0-37.0) g/dL RDW 20.0 H (11.5-15.5) % Potassium (3.5-5.1) mmol/L Chloride (98-107) mmol/L BUN (7-17) mg/dL POC Glucose (mg/dL) 102 H (75-99) mg/dL Calcium (8.4-10.2) mg/dL Crossmatch See Detail 04/17/17 04/17/17 04/18/17 Range/Units 18:48 21:23 05:21 RBC 3.29 L (3.80-5.40) m/uL Hgb 8.4 L (11.4-16.0) gm/dL Hct 27.8 L (34.0-46.0) % MCHC 30.3 L (31.0-37.0) g/dL RDW 20.4 H (11.5-15.5) % Potassium 3.2 L (3.5-5.1) mmol/L Chloride (98-107) mmol/L BUN (7-17) mg/dL POC Glucose (mg/dL) 114 H (75-99) mg/dL Calcium (8.4-10.2) mg/dL Crossmatch 04/18/17 04/18/17 Range/Units 05:21 06:01 RBC (3.80-5.40) m/uL Hgb (11.4-16.0) gm/dL Hct (34.0-46.0) % MCHC (31.0-37.0) g/dL RDW (11.5-15.5) % Potassium (3.5-5.1) mmol/L Chloride 114 H (98-107) mmol/L BUN 19 H (7-17) mg/dL POC Glucose (mg/dL) 115 H (75-99) mg/dL Calcium 8.0 L (8.4-10.2) mg/dL Crossmatch Assessment and Plan (1) Symptomatic anemia Narrative/Plan: Small bowel bleed per small bowel capsule endoscopy located in the duodenum early jejunum. Status: Acute (2) Acute blood loss anemia Status: Acute Plan: 1. Continue with IV Nexium. EGD evaluation tomorrow. Nothing by mouth after midnight. Monitor CBC closely. 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 The patient has indicated understanding and acceptance of the risks and procedures discussed. Assessment and plan of care discussed with Dr. Guidry
--- NOTE | 2017-04-18 14:37 | P.PN ---
Subjective 71-year-old female being seen this morning on rounds. Patient currently is denying any dizziness lightheadedness. There's been no further episodes of hematemesis or hematochezia since admission. Did note the recommendations by gastroenterology small ENDOSCOPy INDICATES ACTIVE BLEEDING IN THE DUODENUM/ early duodenum. Patient's hemoglobin this morning is 8.4. Patient has been treated for acute blood loss anemia necessitating 4 units of packed red blood cells to be infused since admission. Source of the bleed suspect GI patient continues to report not experiencing any nausea no vomiting. Did note GIs recommending the patient undergoing EGD evaluation this will be scheduled for tomorrow on April 19 patient is aware of the plan of care. Objective - Vital Signs Vital signs: Vital Signs Temp 98.7 F 04/18/17 08:00 Pulse 78 04/18/17 08:30 Resp 17 04/18/17 08:30 BP 119/62 04/18/17 08:00 Pulse Ox 97 04/18/17 08:00 Intake & Output 04/17/17 04/18/17 04/18/17 18:59 06:59 18:59 Intake Total 430 2075 300 Output Total 1200 300 700 Balance -770 1775 -400 Weight 88 kg 97.5 kg Intake: IV 1500 Sodium Chloride 0.9% 1, 1500 000 ml @ 150 mls/hr IV . Q6H40M ANAI Rx#:[id number] Intake, IV Titration 200 Amount Potassium Chloride 10 meq 100 Lidocaine 2% Inj 10 mg In Sodium Chloride 0.9% 100 ml @ 100 mls/hr IV Q1HR ANAI Rx#:[id number] Potassium Chloride 10 meq 100 Lidocaine 2% Inj 10 mg In Sodium Chloride 0.9% 100 ml @ 100 mls/hr IV Q1HR ANAI Rx#:[id number] Oral 120 300 Tube Feeding 375 Blood Product 310 Rc As-1 Unit 310 [id number] Output: Urine 1200 300 700 Other: Voiding Method Indwelling Catheter Indwelling Catheter Indwelling Catheter # Voids 1 - Exam GENERAL APPEARANCE: The patient is alert, oriented, in no acute distress. Pleasant cooperative aware of the plan of care VITAL SIGNS: Reviewed HEENT: Head is normocephalic and atraumatic. Pupils are equal and reactive. The nares are patent. Oropharynx is clear without lesions. NECK: Supple without lymphadenopathy. Traches midline. HEART: S1, S2. Regular rate and rhythm. Adequate air movement LUNGS: No crackles or wheezes are heard. ABDOMEN: Soft, nontender, nondistended with good bowel sounds. No peritoneal signs. No palpable organomegaly or masses. Reports no stooling reports no nausea vomiting EXTREMITIES: Normal skin color and turgor. No cyanosis, rash, ulceration, clubbing or edema. Radial pedal pulses are 2/4 bilaterally. NEUROLOGICAL: No focal deficits. Strength and sensation are grossly intact. - Labs CBC & Chem 7: 04/18/17 05:21 04/18/17 05:21 Labs: Abnormal Lab Results - Last 24 Hours (Table) 04/17/17 04/17/17 04/17/17 Range/Units 12:59 17:20 18:48 RBC 3.08 L (3.80-5.40) m/uL Hgb 8.3 L (11.4-16.0) gm/dL Hct 25.8 L (34.0-46.0) % MCHC (31.0-37.0) g/dL RDW 20.0 H (11.5-15.5) % Potassium (3.5-5.1) mmol/L Chloride (98-107) mmol/L BUN (7-17) mg/dL POC Glucose (mg/dL) 102 H (75-99) mg/dL Calcium (8.4-10.2) mg/dL Crossmatch See Detail 04/17/17 04/17/17 04/18/17 Range/Units 18:48 21:23 05:21 RBC 3.29 L (3.80-5.40) m/uL Hgb 8.4 L (11.4-16.0) gm/dL Hct 27.8 L (34.0-46.0) % MCHC 30.3 L (31.0-37.0) g/dL RDW 20.4 H (11.5-15.5) % Potassium 3.2 L (3.5-5.1) mmol/L Chloride (98-107) mmol/L BUN (7-17) mg/dL POC Glucose (mg/dL) 114 H (75-99) mg/dL Calcium (8.4-10.2) mg/dL Crossmatch 08/01/17 08/01/17 Range/Units 05:21 06:01 RBC (3.80-5.40) m/uL Hgb (11.4-16.0) gm/dL Hct (34.0-46.0) % MCHC (31.0-37.0) g/dL RDW (11.5-15.5) % Potassium (3.5-5.1) mmol/L Chloride 114 H (98-107) mmol/L BUN 19 H (7-17) mg/dL POC Glucose (mg/dL) 115 H (75-99) mg/dL Calcium 8.0 L (8.4-10.2) mg/dL Crossmatch Assessment and Plan Plan: Impression Present on admission symptomatic acute blood loss anemia suspect due to a GI bleed necessitating 4 units of packed red blood cells to be infused Acute blood loss anemia Small bowel bleed per small bowel capsule endoscopy located in the duodenum early jejunum Present on admission left upper extremity pain suspect due to sepsis standing up all multiple days prior to admission resulting in a left closed distal fibular fracture Left forearm pain Plan Continue with recommendations by GI service will schedule for an EGD tomorrow Monitor hemoglobin attempt keep greater than 7 DVT and GI prophylaxis Pain control Repeat labs in the morning The above impression and plan of care have been discussed and directed by signing physician. Ely Bell nurse practitioner acting as scribe for signing physician.
[2017-04-18 17:05] LABS: Glucose,Whole Blood 101 mg/dL (75-99)
[2017-04-18 21:11] LABS: Glucose,Whole Blood 111 mg/dL (75-99)
[2017-04-19] MEDS: SODIUM CHLORIDE 0.9% 1,000 ML IV SCH ×3 (06:05→21:10)
[2017-04-19 06:07] LABS: Glucose,Whole Blood 94 mg/dL (75-99)
[2017-04-19 06:50] LABS: Anisocytosis Moderate; Basophils % (A) 1 %; CH 26.2; Eosinophils # (A) 0.2 k/uL (0-0.7); Eosinophils % (A) 3 %; HCT 26.2 % (34.0-46.0); HDW 4.51; HGB 7.9 gm/dL (11.4-16.0); Hypochromasia Marked; Luc # (Auto) 0.18; Luc % (Auto) 3; Lymphocytes # (A) 1.1 k/uL (1.0-4.8); Lymphocytes % (A) 18 %; MCH 25.6 pg (25.0-35.0); MCHC 30.2 g/dL (31.0-37.0); MCV 84.8 fL (80.0-100.0); Mean Platelet Volume 8.1; Microcytosis Slight; Monocytes # (A) 0.4 k/uL (0-1.0); Monocytes % (A) 6 %; Neutrophils # (A) 4.2 k/uL (1.3-7.7); Neutrophils % (A) 69 %; Poikilocytosis Moderate; RBC 3.09 m/uL (3.80-5.40); RDW 20.8 % (11.5-15.5); WBC 6.1 k/uL (3.8-10.6); WBC (Perox) 6.38
[2017-04-19 06:59] LABS: ALT 24 U/L (9-52); AST 15 U/L (14-36); Alkaline Phosphatase 80 U/L (38-126); Anion Gap 7 mmol/L; Blood Urea Nitrogen 14 mg/dL (7-17); Calcium 8.1 mg/dL (8.4-10.2); Carbon Dioxide 22 mmol/L (22-30); Chloride 114 mmol/L (98-107); Glucose 82 mg/dL (74-99); Non-African American GFR(MDRD) >60 (>60 ml/min/1.73 sqM); Potassium 3.7 mmol/L (3.5-5.1); Sodium 143 mmol/L (137-145); Total Bilirubin 0.5 mg/dL (0.2-1.3); Total Protein 4.7 g/dL (6.3-8.2)
[2017-04-19] MEDS: ESOMEPRAZOLE 20 MG in SODIUM CHLORIDE 0.9% 50 ML IVPB SCH (08:19)
--- NOTE | 2017-04-19 09:48 | P.PN ---
Subjective 72-year-old female being seen this morning. Currently is sitting up in a chair. Patient is aware of the plan of care. Patient is scheduled this morning for an EGD by GI service as part of a workup for a small capsule study indicated bleeding in the duodenum early jejunum. Labs currently this morning pending patient's denying any dizziness lightheadedness chest pain or shortness of breath. There's been no further episodes of hematemesis Objective - Vital Signs Vital signs: Vital Signs Temp 98.7 F 04/19/17 00:00 Pulse 68 04/19/17 04:00 Resp 18 04/19/17 04:00 BP 125/63 04/19/17 04:00 Pulse Ox 91 L 04/19/17 04:00 Intake & Output 04/18/17 04/19/17 04/19/17 18:59 06:59 18:59 Intake Total 540 1650 Output Total 700 250 Balance -160 1400 Weight 101.5 kg Intake: IV 1200 Sodium Chloride 0.9% 1, 1200 000 ml @ 150 mls/hr IV . Q6H40M ANAI Rx#:[id number] Intake, IV Titration 450 Amount Sodium Chloride 0.9% 1, 450 000 ml @ 150 mls/hr IV . Q6H40M ANAI Rx#:[id number] Oral 540 Output: Urine 700 250 Other: Voiding Method Indwelling Catheter Indwelling Catheter - Exam Physical exam 72-year-old female sitting up in a pleasant cooperative oriented 3 Lungs essentially clear adequate air movement on room air Heart S1-S2 audible and regular denying chest pain Abdomen flat nontender indwelling Chew catheter in place. Denies any nausea vomiting denies abdominal pain Extremities no evidence of edema left lower extremity immobilizer boot in place - Labs CBC & Chem 7: 04/19/17 05:44 04/19/17 05:44 Labs: Abnormal Lab Results - Last 24 Hours (Table) 04/18/17 04/18/17 04/19/17 Range/Units 16:35 21:10 05:44 RBC (3.80-5.40) m/uL Hgb (11.4-16.0) gm/dL Hct (34.0-46.0) % MCHC (31.0-37.0) g/dL RDW (11.5-15.5) % Chloride 114 H (98-107) mmol/L POC Glucose (mg/dL) 101 H 111 H (75-99) mg/dL Calcium 8.1 L (8.4-10.2) mg/dL Total Protein 4.7 L (6.3-8.2) g/dL Albumin 2.3 L (3.5-5.0) g/dL 04/19/17 Range/Units 05:44 RBC 3.09 L (3.80-5.40) m/uL Hgb 7.9 L (11.4-16.0) gm/dL Hct 26.2 L (34.0-46.0) % MCHC 30.2 L (31.0-37.0) g/dL RDW 20.8 H (11.5-15.5) % Chloride (98-107) mmol/L POC Glucose (mg/dL) (75-99) mg/dL Calcium (8.4-10.2) mg/dL Total Protein (6.3-8.2) g/dL Albumin (3.5-5.0) g/dL Assessment and Plan Plan: Impression Present on admission symptomatic acute blood loss anemia suspect due to a GI bleed necessitating 4 units of packed red blood cells to be infused Acute blood loss anemia Small bowel bleed per small bowel capsule endoscopy located in the duodenum early jejunum Present on admission left upper extremity pain suspect due to sepsis standing up all multiple days prior to admission resulting in a left closed distal fibular fracture Left forearm pain Plan Continue with recommendations by GI service schedule for an EGD today Monitor hemoglobin attempt keep greater than 7 DVT and GI prophylaxis Pain control Repeat labs in the morning Remove Chew catheter in the morning The above impression and plan of care have been discussed and directed by signing physician. Ely Bell nurse practitioner acting as scribe for signing physician.
[2017-04-19] MEDS: HYDROmorphone 1 MG/ML 1 ML SYRINGE IVP PRN (10:33)
[2017-04-19 11:29] LABS: Glucose,Whole Blood 98 mg/dL (75-99)
[2017-04-19] MEDS ORDERED: LIDOCAINE 1% INJ 10MG/ML (20 ML MDV) ONE (13:13)
[2017-04-19] MEDS ORDERED: PROPOFOL 10 MG/ML 20 ML VIAL IV ONE (13:13)
[2017-04-19] MEDS ORDERED: IV FLUID CONTINUATION 1,000 ML IV ONE (13:20)
--- NOTE | 2017-04-19 13:39 | P.PCN ---
Date of Procedure: 04/19/17 Preoperative Diagnosis: Postoperative Diagnosis: Procedure(s) Performed: BRIEF HISTORY: Patient is a 72-year-old, pleasant, white female, admitted hospital with severe symptomatic anemia and intermittent dark colored stools. She did have an EGD and colonoscopy done by Dr. Posadas on which was unremarkable. She was admitted with the hemoglobin of 6.9 requiring 2 units of blood transfusion. She has underwent a small bowel capsule endoscopy to these ago that showed fresh blood in the duodenum and proximal jejunum and hence he scheduled for an upper endoscopy/enteroscopy to evaluate this further. PROCEDURE PERFORMED: Esophagogastroduodenoscopy/Enteroscopy with biopsy. PREOPERATIVE DIAGNOSIS: severe symptomatic anemia and recent capsule endoscopy showed fresh blood in the duodenum and proximal jejunum IV sedation per anesthesia. PROCEDURE: After informed consent was obtained, the patient was brought into the endoscopy unit. IV sedation was administered by Anesthesia under continuous monitoring. Initially the Olympus GIF-140 vidreactive colonoscopys inserted into the mouth. Esophagus intubated without any difficulty. It was gradually advanced into the stomach and duodenum andinto the proximal jejunum carefully examined. The proximal jejunum up to 60 cm from the ligament of Treitz appeared normal. The scope was withdrawn and along the duodenal sweep there was a circumferential ulcerated polypoid mass identified which appears to be the source of bleeding but there was no active bleeding presently. Multiple biopsies were done from the mass. The scope at this time was withdrawn to the stomach, adequately insufflated with air, and upon careful examination, mucosa of the antrum, body, cardia and the fundus appeared normal. The scope was then withdrawn into the esophagus. The GE junction was located at 39 cm from the incisors. The esophagus appeared normal. There were no erosions or ulcerations seen and the patient tolerated the procedure well. IMPRESSION: 1.. 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 At this time will await the biopsy results. She will resume a regular diet today. We'll consult Dr. Posadas Implants: Indications for Procedure: Operative Findings: Description of Procedure:
--- NOTE | 2017-04-19 14:16 | PN ---
CHIEF COMPLAINT: GI bleeding and blood loss anemia. HISTORY OF PRESENT ILLNESS: This lady's hemoglobin has leveled off over the last 24 hours and she is just over 8. There has been no further obvious bleeding. We await the results of the capsule study. PHYSICAL EXAM: She is oriented and alert. CHEST: Clear. CARDIAC: Normal. ABDOMEN: Soft and nontender. She is very pale. IMPRESSION; 1. Gastrointestinal bleed, source unknown. 2. Blood loss anemia. PLAN: Await results of capsule study. RAYRAY
--- NOTE | 2017-04-19 14:33 | PN ---
DATE OF SERVICE: 04/19/2017 CHIEF COMPLAINT: Blood loss anemia. HISTORY OF PRESENT ILLNESS: This lady is going down for an upper GI endoscopy today. Apparently a lesion was seen on her capsule study in the proximal small bowel. PHYSICAL EXAM: She remains pale. VITAL SIGNS: Normal. CHEST: Clear. CARDIAC: Normal. ABDOMEN: Soft and nontender. Chew is still in place. IMPRESSION: 1. Gastrointestinal blood loss. 2. Blood loss anemia. PLAN: 1. Upper GI endoscopy today. 2. Discuss removing Chew but she prefers to leave it in since it is difficult for her to get up and move about with her anemia and left leg fracture. RAYRAY
[2017-04-19 16:17] LABS: Glucose,Whole Blood 84 mg/dL (75-99)
[2017-04-19 20:45] LABS: Glucose,Whole Blood 90 mg/dL (75-99)
[2017-04-20] MEDS: HYDROmorphone 1 MG/ML 1 ML SYRINGE IVP PRN ×2 (04:39→23:52)
[2017-04-20] MEDS: SODIUM CHLORIDE 0.9% 1,000 ML IV SCH ×3 (04:39→23:52)
[2017-04-20 06:15] LABS: Glucose,Whole Blood 88 mg/dL (75-99)
[2017-04-20 06:39] LABS: Anisocytosis Moderate; Basophils % (A) 1 %; CH 25.7; CHCM 29.8; Eosinophils # (A) 0.3 k/uL (0-0.7); Eosinophils % (A) 5 %; HCT 24.7 % (34.0-46.0); HDW 4.28; HGB 7.4 gm/dL (11.4-16.0); Hypochromasia Marked; Luc # (Auto) 0.14; Luc % (Auto) 3; Lymphocytes # (A) 0.9 k/uL (1.0-4.8); Lymphocytes % (A) 19 %; MCH 25.8 pg (25.0-35.0); MCHC 29.8 g/dL (31.0-37.0); MCV 86.5 fL (80.0-100.0); Microcytosis Slight; Monocytes # (A) 0.5 k/uL (0-1.0); Monocytes % (A) 9 %; Neutrophils # (A) 3.2 k/uL (1.3-7.7); Neutrophils % (A) 64 %; Poikilocytosis Moderate; RBC 2.85 m/uL (3.80-5.40); RDW 20.5 % (11.5-15.5); WBC (Perox) 4.93
[2017-04-20 06:52] LABS: ALT 23 U/L (9-52); AST 15 U/L (14-36); Alkaline Phosphatase 72 U/L (38-126); Anion Gap 7 mmol/L; Blood Urea Nitrogen 13 mg/dL (7-17); Calcium 8.1 mg/dL (8.4-10.2); Carbon Dioxide 18 mmol/L (22-30); Chloride 117 mmol/L (98-107); Glucose 73 mg/dL (74-99); Non-African American GFR(MDRD) >60 (>60 ml/min/1.73 sqM); Potassium 3.6 mmol/L (3.5-5.1); Sodium 142 mmol/L (137-145); Total Bilirubin 0.4 mg/dL (0.2-1.3); Total Protein 4.5 g/dL (6.3-8.2)
[2017-04-20] MEDS: ESOMEPRAZOLE 20 MG in SODIUM CHLORIDE 0.9% 50 ML IVPB SCH (08:50)
--- NOTE | 2017-04-20 09:53 | P.PN ---
Subjective Principal diagnosis: Symptomatic anemia 72-year-old female admitted with severe symptomatic anemia with negative endoscopic workup approximately 6 weeks ago. No episodes of hematemesis hematochezia melena since admission. Small bowel capsule endoscopy reported bleeding in the duodenum she underwent EGD evaluation yesterday with findings of an ulcerated mass in the duodenum status post biopsies. General surgery on consult. Objective - Vital Signs Vital signs: Vital Signs Temp 97.6 F 04/20/17 08:00 Pulse 83 04/20/17 08:00 Resp 17 04/20/17 08:00 BP 134/81 04/20/17 08:00 Pulse Ox 96 04/20/17 08:00 Intake & Output 04/19/17 04/20/17 04/20/17 18:59 06:59 18:59 Intake Total 1914 1900 237 Output Total 850 Balance 1914 1050 237 Weight 103 kg Intake: IV 1250 1500 Sodium Chloride 0.9% 1, 1050 1500 000 ml @ 150 mls/hr IV . Q6H40M ANAI Rx#:[id number] Intake, IV Titration 50 Amount Esomeprazole 20 mg In 50 Sodium Chloride 0.9% 50 ml @ 100 mls/hr IVPB DAILY ANAI Rx#:[id number] Oral 240 237 Tube Feeding 375 400 Output: Urine 850 Other: Voiding Method Indwelling Catheter Indwelling Catheter - Exam General appearance: The patient is alert, oriented, in no acute distress. HET: Head is normocephalic and atraumatic. Pupils are equal and reactive. Oropharynx is clear without lesions. Neck: Supple without lymphadenopathy. Trachea midline. Heart: S1 S2. Regular rate and rhythm. Lungs: No crackles or wheezes are heard. Abdomen: Soft, nontender, nondistended with bowel sounds. No peritoneal signs. No palpable organomegaly or masses. Extremities: Normal skin color and turgor. No cyanosis, rash, ulceration, clubbing, or edema. Radial and pedal pulses are 2/4 bilaterally. Chew with clear yellow urine. Neurological: No focal deficits. Strength and sensation are grossly intact. - Labs CBC & Chem 7: 04/20/17 05:58 04/20/17 05:58 Labs: Abnormal Lab Results - Last 24 Hours (Table) 04/20/17 04/20/17 Range/Units 05:58 05:58 RBC 2.85 L (3.80-5.40) m/uL Hgb 7.4 L (11.4-16.0) gm/dL Hct 24.7 L (34.0-46.0) % MCHC 29.8 L (31.0-37.0) g/dL RDW 20.5 H (11.5-15.5) % Lymphocytes # 0.9 L (1.0-4.8) k/uL Chloride 117 H (98-107) mmol/L Carbon Dioxide 18 L (22-30) mmol/L Glucose 73 L (74-99) mg/dL Calcium 8.1 L (8.4-10.2) mg/dL Total Protein 4.5 L (6.3-8.2) g/dL Albumin 2.0 L (3.5-5.0) g/dL Assessment and Plan (1) Symptomatic anemia Narrative/Plan: Acute GI bleed secondary to duodenal mass status post EGD with biopsy. Status: Acute (2) Acute blood loss anemia Status: Acute Plan: 1. Continue with IV Nexium. General surgery consult. Biopsies pending. Assessment and plan of care discussed with Dr. Guidry
[2017-04-20 11:45] LABS: Glucose,Whole Blood 91 mg/dL (75-99)
--- NOTE | 2017-04-20 15:08 | PN ---
CHIEF COMPLAINT: GI bleed. HISTORY OF PRESENT ILLNESS: This lady's hemoglobin has been stable. Scope yesterday identified a mass in the duodenum and it was biopsied and results are pending. PHYSICAL EXAM: She remains pale. CHEST: Clear. CARDIAC: Normal. ABDOMEN: Soft, nontender. IMPRESSION: 1. 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 2. Blood loss anemia. PLAN: Await results of biopsy. She will require resection either way due to the bleeding. RAYRAY
--- NOTE | 2017-04-20 15:12 | P.PN ---
Subjective 72-year-old female being seen on rounds this morning sitting up in bed. Patient has been followed by the GI service. Patient is aware of the results from the EGD the patient underwent yesterday finding showed an ulcerated mass in the duodenum with biopsies obtained. Waiting further recommendations by surgical service. There's been no further episodes of hematemesis or melena since admission. The hemoglobin this morning is 7.4. Was 7.9 the day before Objective - Vital Signs Vital signs: Vital Signs Temp 97.6 F 04/20/17 08:00 Pulse 77 04/20/17 12:00 Resp 18 04/20/17 12:00 BP 143/63 04/20/17 12:00 Pulse Ox 96 04/20/17 12:00 Intake & Output 04/19/17 04/20/17 04/20/17 18:59 06:59 18:59 Intake Total 191 1900 474 Output Total 850 Balance 1914 1050 474 Weight 103 kg 103 kg Intake: IV 1250 1500 Sodium Chloride 0.9% 1, 1050 1500 000 ml @ 150 mls/hr IV . Q6H40M [facility] Rx#:[id number] Intake, IV Titration 50 Amount Esomeprazole 20 mg In 50 Sodium Chloride 0.9% 50 ml @ 100 mls/hr IVPB DAILY [facility] Rx#:[id number] Oral 240 474 Tube Feeding 375 400 Output: Urine 850 Other: Voiding Method Indwelling Catheter Indwelling Catheter - Exam Physical exam 72-year-old female sitting up in bed pleasant cooperative oriented 3 Lungs essentially clear adequate air movement Heart S1-S2 audible and regular Abdomen soft nontender indwelling Chew catheter in place no stool no nausea no vomiting Extremities no edema - Labs CBC & Chem 7: 04/20/17 05:58 04/20/17 05:58 Labs: Abnormal Lab Results - Last 24 Hours (Table) 04/20/17 04/20/17 Range/Units 05:58 05:58 RBC 2.85 L (3.80-5.40) m/uL Hgb 7.4 L (11.4-16.0) gm/dL Hct 24.7 L (34.0-46.0) % MCHC 29.8 L (31.0-37.0) g/dL RDW 20.5 H (11.5-15.5) % Lymphocytes # 0.9 L (1.0-4.8) k/uL Chloride 117 H (98-107) mmol/L Carbon Dioxide 18 L (22-30) mmol/L Glucose 73 L (74-99) mg/dL Calcium 8.1 L (8.4-10.2) mg/dL Total Protein 4.5 L (6.3-8.2) g/dL Albumin 2.0 L (3.5-5.0) g/dL Assessment and Plan Plan: Impression Present on admission symptomatic acute blood loss anemia suspect due to a GI bleed necessitating 4 units of packed red blood cells to be infused Acute blood loss anemia Small bowel bleed per small bowel capsule endoscopy located in the duodenum early jejunum Present on admission left lower extremity pain suspect due to a fall from standing several days prior to admission resulting in a left closed distal fibular fracture Left lower pain present on admission due to distal femoral fracture Status post EGD April 19 showing ulcerated mass in the duodenum status post biopsies A history of chronic urinary incontinence Plan Await surgical services input Monitor hemoglobin attempt keep greater than 7 DVT and GI prophylaxis Pain control Repeat labs in the morning The above impression and plan of care have been discussed and directed by signing physician. Ely Bell nurse practitioner acting as scribe for signing physician.
[2017-04-20 16:59] LABS: Glucose,Whole Blood 96 mg/dL (75-99)
[2017-04-20 20:56] LABS: Glucose,Whole Blood 103 mg/dL (75-99)
[2017-04-21 05:44] LABS: Glucose,Whole Blood 92 mg/dL (75-99)
[2017-04-21 06:55] LABS: Anisocytosis Slight; Basophils % (A) 1 %; CH 25.2; CHCM 29.7; Eosinophils # (A) 0.3 k/uL (0-0.7); Eosinophils % (A) 5 %; HDW 4.32; HGB 7.5 gm/dL (11.4-16.0); Hypochromasia Marked; Luc # (Auto) 0.19; Luc % (Auto) 4; Lymphocytes # (A) 1.2 k/uL (1.0-4.8); Lymphocytes % (A) 23 %; MCH 25.6 pg (25.0-35.0); MCHC 30.1 g/dL (31.0-37.0); MCV 85.1 fL (80.0-100.0); Mean Platelet Volume 7.8; Microcytosis Slight; Monocytes # (A) 0.4 k/uL (0-1.0); Monocytes % (A) 7 %; Neutrophils # (A) 3.1 k/uL (1.3-7.7); Neutrophils % (A) 60 %; Poikilocytosis Moderate; RBC 2.94 m/uL (3.80-5.40); RDW 19.9 % (11.5-15.5); WBC 5.1 k/uL (3.8-10.6); WBC (Perox) 5.11
[2017-04-21 06:57] LABS: ALT 26 U/L (9-52); AST 15 U/L (14-36); Alkaline Phosphatase 75 U/L (38-126); Anion Gap 6 mmol/L; Blood Urea Nitrogen 13 mg/dL (7-17); Calcium 8.3 mg/dL (8.4-10.2); Carbon Dioxide 20 mmol/L (22-30); Chloride 116 mmol/L (98-107); Glucose 72 mg/dL (74-99); Non-African American GFR(MDRD) >60 (>60 ml/min/1.73 sqM); Potassium 3.5 mmol/L (3.5-5.1); Sodium 142 mmol/L (137-145); Total Bilirubin 0.4 mg/dL (0.2-1.3); Total Protein 4.6 g/dL (6.3-8.2)
[2017-04-21] MEDS: ESOMEPRAZOLE 20 MG in SODIUM CHLORIDE 0.9% 50 ML IVPB SCH (08:41)
[2017-04-21] MEDS: SODIUM CHLORIDE 0.9% 1,000 ML IV SCH ×2 (08:41→21:12)
--- NOTE | 2017-04-21 09:20 | P.PN ---
Subjective 72-year-old female being seen on rounds this morning. no new events. Patient' s denying any nausea vomiting no stool no hematemesis tolerating diet hemoglobin this morning 7.5 temp this morning 99.4 tolerating a diet awaiting surgical service's input regarding the findings of the EGD which showed ulcerated mass in the duodenum status post biopsies taken Objective - Vital Signs Vital signs: Vital Signs Temp 99.4 F 04/21/17 00:00 Pulse 62 04/21/17 04:00 Resp 18 04/21/17 04:00 BP 138/65 04/21/17 04:00 Pulse Ox 95 04/21/17 04:00 Intake & Output 04/20/17 04/21/17 04/21/17 18:59 06:59 18:59 Intake Total 654 225 Output Total 430 1100 Balance 224 -875 Weight 103 kg 103.5 kg Intake: IV 225 Sodium Chloride 0.9% 1, 225 000 ml @ 75 mls/hr IV . [id number] [facility] Rx#:[id number] Oral 654 Output: Urine 430 1100 Other: Voiding Method Indwelling Catheter Indwelling Catheter # Bowel Movements 1 - Exam Physical exam 72-year-old female sitting up in bed pleasant cooperative oriented 3 Lungs essentially clear adequate air movement Heart S1-S2 audible and regular Abdomen soft nontender indwelling Chew catheter in place no stool no nausea no vomiting Extremities no edema Kalia wrap to the left lower extremity - Labs CBC & Chem 7: 04/21/17 06:08 04/21/17 06:08 Labs: Abnormal Lab Results - Last 24 Hours (Table) 04/20/17 04/21/17 04/21/17 Range/Units 20:54 06:08 06:08 RBC 2.94 L (3.80-5.40) m/uL Hgb 7.5 L (11.4-16.0) gm/dL Hct 25.0 L (34.0-46.0) % MCHC 30.1 L (31.0-37.0) g/dL RDW 19.9 H (11.5-15.5) % Chloride 116 H (98-107) mmol/L Carbon Dioxide 20 L (22-30) mmol/L Glucose 72 L (74-99) mg/dL POC Glucose (mg/dL) 103 H (75-99) mg/dL Calcium 8.3 L (8.4-10.2) mg/dL Total Protein 4.6 L (6.3-8.2) g/dL Albumin 2.1 L (3.5-5.0) g/dL Assessment and Plan Plan: Impression Present on admission symptomatic acute blood loss anemia suspect due to a GI bleed necessitating 4 units of packed red blood cells to be infused Acute blood loss anemia Small bowel bleed per small bowel capsule endoscopy located in the duodenum early jejunum Present on admission left lower extremity pain suspect due to a fall from standing several days prior to admission resulting in a left closed distal fibular fracture Left lower pain present on admission due to distal femoral fracture Status post EGD April 19 showing ulcerated mass in the duodenum status post biopsies A history of chronic urinary incontinence Electrolyte abnormality hypokalemia Plan Potassium to be replaced Await surgical services input Monitor hemoglobin attempt keep greater than 7 DVT and GI prophylaxis Pain control Repeat labs in the morning The above impression and plan of care have been discussed and directed by signing physician. Ely Bell nurse practitioner acting as scribe for signing physician.
[2017-04-21 12:10] LABS: Glucose,Whole Blood 83 mg/dL (75-99)
[2017-04-21] MEDS: POTASSIUM CHLORIDE ER 20 MEQ TAB.ER PO SCH ×2 (12:21→14:46)
[2017-04-21 16:53] LABS: Glucose,Whole Blood 91 mg/dL (75-99)
[2017-04-21 20:27] LABS: Glucose,Whole Blood 103 mg/dL (75-99)
[2017-04-22] MEDS: HYDROcodone/APAP 5-325MG 1 EACH TAB PO PRN (01:44)
[2017-04-22 06:44] LABS: Anisocytosis Moderate; Basophils % (A) 1 %; CH 25.8; CHCM 30.1; Eosinophils # (A) 0.3 k/uL (0-0.7); Eosinophils % (A) 5 %; HCT 27.7 % (34.0-46.0); HDW 4.22; Hypochromasia Marked; Luc # (Auto) 0.18; Luc % (Auto) 3; Lymphocytes # (A) 1.3 k/uL (1.0-4.8); Lymphocytes % (A) 22 %; MCH 24.9 pg (25.0-35.0); MCV 85.9 fL (80.0-100.0); Mean Platelet Volume 8.2; Microcytosis Slight; Monocytes # (A) 0.4 k/uL (0-1.0); Monocytes % (A) 7 %; Neutrophils # (A) 3.6 k/uL (1.3-7.7); Neutrophils % (A) 62 %; Poikilocytosis Moderate; RBC 3.22 m/uL (3.80-5.40); RDW 20.2 % (11.5-15.5); WBC 5.8 k/uL (3.8-10.6)
[2017-04-22 07:00] LABS: ALT 26 U/L (9-52); AST 16 U/L (14-36); Alkaline Phosphatase 78 U/L (38-126); Anion Gap 6 mmol/L; Blood Urea Nitrogen 12 mg/dL (7-17); Calcium 8.7 mg/dL (8.4-10.2); Carbon Dioxide 20 mmol/L (22-30); Chloride 116 mmol/L (98-107); Glucose 80 mg/dL (74-99); Non-African American GFR(MDRD) >60 (>60 ml/min/1.73 sqM); Potassium 4.5 mmol/L (3.5-5.1); Sodium 142 mmol/L (137-145); Total Bilirubin 0.4 mg/dL (0.2-1.3); Total Protein 4.9 g/dL (6.3-8.2)
[2017-04-22 07:47] LABS: Glucose,Whole Blood 85 mg/dL (75-99)
[2017-04-22] MEDS: ESOMEPRAZOLE 20 MG in SODIUM CHLORIDE 0.9% 50 ML IVPB SCH (08:08)
--- NOTE | 2017-04-22 09:34 | PN ---
CHIEF COMPLAINT: Recurrent GI Bleeding with blood loss anemia. HISTORY OF PRESENT ILLNESS: This lady has not bled in the last two days apparently. We are awaiting recommendations from surgery as well as pathology report. PHYSICAL EXAM: She remains pale. Chest is clear. Cardiac exam is normal. IMPRESSION: GI blood loss from duodenal or jejunal neoplasm. PLAN: Await recommendations from surgery. RAYRAY
[2017-04-22] MEDS ORDERED: RX INFO: IV CONTRAST WAS GIVEN 1 EACH MISC MISCELLANE PRN (10:08)
--- NOTE | 2017-04-22 10:08 | P.CONS ---
History of Present Illness - Reason for Consult Consult date: 04/22/17 Duodenal mass. Iron deficiency anemia. - History of Present Illness The patient is a 72-year-old lady, who was noted to be progressively anemic, over the past 3-4 months. Apparently workup was consistent with iron deficiency though the patient did not report any obvious bleeding or black stools. She had an EGD and colonoscopy at [facility], which were negative other than gastritis, with biopsy positive for H. pylori. The patient was started on treatment for the H. pylori, but continued to be anemic despite oral iron supplementation. On the day of admission, the patient had been feeling quite weak. She became dizzy when she got up out of bed and fell. When she tried to get up she fell again and developed severe pain in her left ankle. She therefore came into the emergency room. Ankle x-rays revealed evidence of fracture. The chest x-ray was negative. A baseline hemoglobin in the outpatient setting had been in the 8 range. On admission hemoglobin was 7.2. The patient was seen by orthopedic surgery for her ankle fracture and is being managed conservatively for the same. She she was transfused for her hemoglobin, but showed a fairly suboptimal response. She therefore underwent a capsule endoscopy by gastroenterology. This revealed evidence of bleeding in the duodenum/proximal jejunum. She had an EGD/enteroscopy with Dr. Guidry on 04/19/17. This revealed an irregular mass in the duodenal sweep, which was biopsied. Consult was placed for further evaluation and recommendations. The patient denied any prior history of malignancy. She does not have any symptoms suggestive of bowel obstruction and denied any significant abdominal pain. Review of Systems Constitutional: Reports poor appetite, Reports weakness, Reports weight loss ( About 10-12 pounds over the last 2 months) Eyes: denies blurred vision, denies pain Ears: right: decreased hearing, deny: ear discharge, earache, tinnitus Ears, nose, mouth and throat: Denies headache, Denies sore throat Cardiovascular: Reports dyspnea on exertion, Reports lightheadedness, Reports palpitations Respiratory: Reports dyspnea Gastrointestinal: Reports as per HPI Genitourinary: Denies dysuria, Denies hematuria Menstruation: Reports postmenopausal Musculoskeletal: Reports muscle weakness Integumentary: Denies pruritus, Denies rash Neurological: Reports as per HPI, Reports weakness Psychiatric: Denies anxiety, Denies depression Endocrine: Reports fatigue, Reports weight change Hematologic/Lymphatic: Reports as per HPI Past Medical History Past Medical History: Hyperlipidemia, Hypertension, Thyroid Disorder Additional Past Medical History / Comment(s): Chronic anemia, antral gastritis and colonic polyps based on the most recent EGD and colonoscopy done at [facility] 02/17/2017, positive H. pylori, hypertension, hyperlipidemia , hypothyroidism History of Any Multi-Drug Resistant Organisms: None Reported Past Surgical History: Breast Surgery, Hysterectomy Past Psychological History: No Psychological Hx Reported Smoking Status: Never smoker Past Alcohol Use History: None Reported Past Drug Use History: None Reported Medications and Allergies Home Medications Medication Instructions Recorded Confirmed Type Aspirin EC [Ecotrin] 81 mg PO DAILY 03/10/16 04/13/17 History Atorvastatin [Lipitor] 40 mg PO DAILY 03/10/16 04/13/17 History Chlorthalidone [Hygroton] 25 mg PO DAILY 03/10/16 04/13/17 History Cholecalciferol [Vitamin D3] 2,000 unit PO DAILY 03/10/16 04/13/17 History Levothyroxine Sodium [Synthroid] 100 mcg PO DAILY 03/10/16 04/13/17 History Losartan Potassium 100 mg PO DAILY 03/10/16 04/13/17 History amLODIPine [Norvasc] 5 mg PO DAILY 03/10/16 04/13/17 History Ferrous Sulfate [Feosol] 325 mg PO TID 04/13/17 04/13/17 History Allergies Allergy/AdvReac Type Severity Reaction Status Date / Time No Known Allergies Allergy Verified 04/13/17 19:18 Physical Exam Vitals: Vital Signs Temp Pulse Resp BP Pulse Ox 04/22/17 07:00 98.2 F 56 L 16 137/81 94 L 04/21/17 21:40 98.5 F 66 16 138/61 96 04/21/17 15:00 98.1 F 60 20 173/72 96 Intake and Output 04/21/17 04/22/17 04/22/17 22:59 06:59 14:59 Intake Total 1030 Output Total 500 Balance 1030 -500 Intake: IV 550 Sodium Chloride 0.9% 1, 550 000 ml @ 50 mls/hr IV . Q20H [facility] Rx#:[id number] Oral 480 Output: Urine 500 Uretheral (Chew) 500 Other: Voiding Method Indwelling Catheter Indwelling Catheter Indwelling Catheter Weight 104 kg - Constitutional General appearance: no acute distress - EENT Eyes: EOMI, PERRLA ENT: hearing grossly normal (Hearing aid right ear), normal oropharynx Ears: right: fluid - Neck Neck: no lymphadenopathy Thyroid: bilateral: normal size - Respiratory Respiratory: bilateral: CTA - Cardiovascular Rhythm: regular Heart sounds: normal: S1, S2 - Gastrointestinal General gastrointestinal: normal bowel sounds, soft - Integumentary Integumentary: normal - Neurologic Neurologic: CNII-XII intact - Musculoskeletal Musculoskeletal: strength equal bilaterally - Psychiatric Psychiatric: A&O x's 3, appropriate affect Results CBC & Chem 7: 04/22/17 06:21 04/22/17 06:21 Labs: Abnormal Lab Results - Last 24 Hours (Table) 04/21/17 04/22/17 04/22/17 Range/Units 20:25 06:21 06:21 RBC 3.22 L (3.80-5.40) m/uL Hgb 8.0 L (11.4-16.0) gm/dL Hct 27.7 L (34.0-46.0) % MCH 24.9 L (25.0-35.0) pg MCHC 29.0 L (31.0-37.0) g/dL RDW 20.2 H (11.5-15.5) % Chloride 116 H (98-107) mmol/L Carbon Dioxide 20 L (22-30) mmol/L POC Glucose (mg/dL) 103 H (75-99) mg/dL Total Protein 4.9 L (6.3-8.2) g/dL Albumin 2.2 L (3.5-5.0) g/dL Comments: Ankle [id number] reviewed EGD/enteroscopy procedure note - report reviewed Chest x-ray: report reviewed Assessment and Plan (1) Mass of duodenum Narrative/Plan: The patient was found to have a mass in the duodenal sweep, which is the source of her blood loss anemia. The operative findings were highly suggestive of malignancy. This was discussed with the patient. At this time we're awaiting biopsy results. In the meantime, for further staging, I will order computed tomography scan of the chest abdomen and pelvis. Further recommendations will be based on the results of the biopsy, as well as staging studies. Status: Acute (2) Acute blood loss anemia Narrative/Plan: The patient actually has acute on chronic blood loss anemia, from the duodenal mass. She had been on oral iron supplementation in the outpatient setting but did not respond well to the same. She has received about 4 units of PRBCs during this hospitalization, with the eventual stabilization of the hemoglobin in the 7-8 range, but not improvement. I will order IV iron. Continue to monitor hemoglobin and transfuse as needed for hemoglobin less than 7, or even for higher hemoglobin levels, and the patient is symptomatic or has evidence of active bleeding. Status: Acute
[2017-04-22] MEDS: IOHEXOL 350 MG/ML 25 ML BOTTLE (ORAL USE) PO PRN ×2 (11:46→12:48)
[2017-04-22 12:12] LABS: Glucose,Whole Blood 82 mg/dL (75-99)
--- NOTE | 2017-04-22 16:28 | PN ---
DATE OF SERVICE: 04/22/2017 The patient is a 72-year-old pleasant lady admitted to the hospital with acute GI bleed. She underwent upper endoscopy/enteroscopy two days and revealed an ulcerated duodenal mass along the duodenal sweep with active oozing. Biopsies were done from this area and they were positive for adenocarcinoma and the background of adenoma. She was transferred to the oncology floor today. She does not have anymore bleeding. She is doing much better. No abdominal pain. No nausea or vomiting. PHYSICAL EXAMINATION: She appears comfortable, no apparent distress. Vital signs are stable. Blood pressure is a 130/86, pulse rate 56, temperature 98.5. HEENT: Unremarkable. Conjunctivae pink. Sclerae anicteric. Oral cavity, no lesions. NECK: No JVD or lymph node enlargement. CHEST: Clear to auscultation. HEART: Regular rate and rhythm. ABDOMEN: Soft. Bowel sounds are positive. No organomegaly. EXTREMITIES: No pedal edema. SKIN: No rashes. NEURO: Alert and oriented x3. No focal deficits. Labs from today, the hemoglobin is 8, WBC 5.8 and platelets are normal. Basic metabolic panel is within normal limits. IMPRESSION: Ulcerated mass involving the duodenal sweep noted on recent upper endoscopy done two days ago. Biopsies showed invasive adenocarcinoma and a background of adenoma. RECOMMENDATIONS: The biopsy results were discussed with the patient. At this time, will consult oncology. Thank you for this consultation. RAYRAY
[2017-04-22 17:13] LABS: Glucose,Whole Blood 73 mg/dL (75-99)
[2017-04-22 20:14] LABS: Glucose,Whole Blood 89 mg/dL (75-99)
--- NOTE | 2017-04-22 21:06 | PN ---
CHIEF COMPLAINT: GI bleed. HISTORY OF PRESENT ILLNESS: This lady's biopsy has come back revealing adenocarcinoma in the duodenum. We await recommendations of surgery. PHYSICAL EXAM: She remains pale. Chest is clear. Cardiac exam is normal. IMPRESSION: 1. Adenocarcinoma of the duodenum. 2. Blood loss anemia. 3. Fracture of the left fibula. PLAN: Await surgical recommendations. RAYRAY
--- NOTE | 2017-04-22 21:43 | CT ---
EXAMINATION TYPE: CT ChestAbdPelvis w con DATE OF EXAM: 04/22/2017 COMPARISON: NONE HISTORY: Duodenal malignancy per order. CT DLP: 2455.7 mGycm. Automated Exposure Control for Dose Reduction was Utilized. CONTRAST: CT scan of the thorax, abdomen and pelvis is performed with oral and with IV Contrast, patient inject ed with 100 mL of Omnipaque 300. FINDINGS: LUNGS: Evaluation of lung parenchyma is suboptimal as there is significant degradation by motion lenora fact particularly in evaluating for subcentimeter nodularity. There are small to moderate-sized bilat eral pleural effusions. There is associated compressive atelectasis in the lung bases. There is overa ll low lung volumes. No obvious suspicious parenchymal nodule or mass is present bilaterally. Tracheo bronchial tree is grossly patent. MEDIASTINUM: There are no greater than 1 cm hilar or mediastinal lymph nodes. Tiny pericardial effusi on anteriorly and inferiorly is seen. Cardiomegaly is present. Coronary artery calcification is prese nt which is noted marker for coronary artery disease OTHER: Heterogeneously dense fibroglandular tissue in both breasts is seen. Thyroid is atrophic or fraire rgically absent. LIVER/GB: Common bile duct is dilated up to 11 mm. There is perhaps mild central intrahepatic biliary dilatation seen. No obstructing mass or calculus is clearly seen. PANCREAS: No pancreatic ductal dilatation is present. SPLEEN: No significant abnormality is seen. ADRENALS: There is nonspecific 1.5 x 1.0 cm left adrenal nodule on axial image 50. KIDNEYS: There is symmetric cortical medullary uptake and excretion from both kidneys. There are prom inent parapelvic cysts bilaterally. No hydronephrosis is seen bilaterally. Chew catheter is seen wit hin decompressed bladder which is thus suboptimally evaluated. BOWEL: Oral contrast is seen in nondistended stomach. There is no suspicious dilatation of the duoden al sweep. No obvious intraluminal mass is present. There is no suspicious small or large bowel dilata tion. Appendix is minimally dilated at 7 mm in the right lower quadrant. No surrounding inflammatory changes clearly seen. Oral contrast extends to the mid transverse colon. There is 1.0 cm metallic for eign body with streak artifact in the pelvis on axial image 96 likely within the mid to distal sigmoi d colon, possible ingested capsule. There is some fecal prominence in the rectum distal to this. GENITAL ORGANS: Uterus is surgically absent. Both ovaries remain present. Within right ovary there is 2.9 cm low dense lesion on axial image 92. This is abnormal finding in postmenopausal female. LYMPH NODES: No greater than 1cm abdominal or pelvic lymph nodes are appreciated. OSSEOUS STRUCTURES: Osseous structures are demineralized which is noted to lower radiographic sensiti vity. OTHER: There is mild to moderate diffuse soft tissue anasarca the lower abdomen and pelvis most promi nent over the bilateral thighs. There is large fat-containing ventral wall hernia near level of umbilicus and smaller adjacent fat-co ntaining umbilical hernias with small mesenteric vessels. There is mild calcified plaque of the abdominal aorta extending into pelvic branch vessels. IMPRESSION: 1. No obvious duodenal mass or adenopathy. 2. Suspect CHF exacerbation as there is cardiomegaly with small to moderate-sized bilateral pleural e ffusions, clinical correlation advised. 3. Mild central intrahepatic and extrahepatic biliary dilatation without obvious obstructing mass or stone. Need to further investigate by ERCP should be based on clinical and lab correlation. 4. There is a 2.9 cm right adnexal/ovarian oval low dense lesion, this is abnormal finding in postmen opausal female, neoplasm is not excluded. Consider pelvic ultrasound to further evaluate and characte shikha. 5. Moderate to large sized fat-containing umbilical hernias containing fat and small caliber mesenter ic vessels. 6. A 1 cm metallic foreign body in the mid to distal sigmoid colon. Suspect ingested capsule for burak red endoscopy study. Clinical correlation advised otherwise other etiologies need to be considered. T here is overall nonobstructive bowel gas pattern. There is however fairly moderate rectal fecal stasi s distal to this noted. 7. Nonspecific 1.5 cm left adrenal nodule.
[2017-04-23] MEDS: HYDROcodone/APAP 5-325MG 1 EACH TAB PO PRN ×3 (01:06→16:24)
[2017-04-23 07:23] LABS: Glucose,Whole Blood 78 mg/dL (75-99)
[2017-04-23 07:57] LABS: Anisocytosis Moderate; Basophils # (A) 0.1 k/uL (0-0.2); Basophils % (A) 1 %; CH 25.7; CHCM 30.2; Eosinophils # (A) 0.3 k/uL (0-0.7); Eosinophils % (A) 5 %; HCT 25.9 % (34.0-46.0); HGB 7.5 gm/dL (11.4-16.0); Hypochromasia Marked; Luc # (Auto) 0.13; Luc % (Auto) 3; Lymphocytes # (A) 1.1 k/uL (1.0-4.8); Lymphocytes % (A) 21 %; MCH 24.8 pg (25.0-35.0); MCHC 29.1 g/dL (31.0-37.0); MCV 85.3 fL (80.0-100.0); Microcytosis Slight; Monocytes # (A) 0.3 k/uL (0-1.0); Monocytes % (A) 6 %; Neutrophils # (A) 3.3 k/uL (1.3-7.7); Neutrophils % (A) 64 %; Poikilocytosis Moderate; RBC 3.04 m/uL (3.80-5.40); RDW 20.1 % (11.5-15.5); WBC 5.2 k/uL (3.8-10.6); WBC (Perox) 5.19
[2017-04-23] MEDS: SODIUM CHLORIDE 0.9% 1,000 ML IV SCH (08:22)
[2017-04-23] MEDS: PANTOPRAZOLE 40 MG TABLET PO SCH (08:23)
[2017-04-23 08:28] LABS: ALT 23 U/L (9-52); AST 16 U/L (14-36); Alkaline Phosphatase 79 U/L (38-126); Anion Gap 6 mmol/L; Blood Urea Nitrogen 10 mg/dL (7-17); Calcium 8.5 mg/dL (8.4-10.2); Carbon Dioxide 20 mmol/L (22-30); Chloride 114 mmol/L (98-107); Glucose 67 mg/dL (74-99); Non-African American GFR(MDRD) >60 (>60 ml/min/1.73 sqM); Potassium 4.1 mmol/L (3.5-5.1); Sodium 140 mmol/L (137-145); Total Bilirubin 0.4 mg/dL (0.2-1.3); Total Protein 4.6 g/dL (6.3-8.2)
[2017-04-23 12:04] LABS: Glucose,Whole Blood 82 mg/dL (75-99)
[2017-04-23 17:43] LABS: Glucose,Whole Blood 82 mg/dL (75-99)
[2017-04-23 20:20] LABS: Glucose,Whole Blood 100 mg/dL (75-99)
[2017-04-24] MEDS: HYDROcodone/APAP 5-325MG 1 EACH TAB PO PRN ×2 (05:56→12:22)
[2017-04-24 07:19] LABS: Glucose,Whole Blood 91 mg/dL (75-99)
[2017-04-24] MEDS: PANTOPRAZOLE 40 MG TABLET PO SCH (08:07)
[2017-04-24] MEDS: SODIUM CHLORIDE 0.9% 1,000 ML IV SCH ×2 (08:08)
[2017-04-24 08:19] LABS: ALT 22 U/L (9-52); AST 17 U/L (14-36); Alkaline Phosphatase 74 U/L (38-126); Anion Gap 6 mmol/L; Blood Urea Nitrogen 10 mg/dL (7-17); Calcium 8.4 mg/dL (8.4-10.2); Carbon Dioxide 21 mmol/L (22-30); Chloride 112 mmol/L (98-107); Glucose 71 mg/dL (74-99); Non-African American GFR(MDRD) >60 (>60 ml/min/1.73 sqM); Potassium 4.1 mmol/L (3.5-5.1); Sodium 139 mmol/L (137-145); Total Bilirubin 0.3 mg/dL (0.2-1.3); Total Protein 4.5 g/dL (6.3-8.2)
[2017-04-24 12:13] LABS: Glucose,Whole Blood 84 mg/dL (75-99)
--- NOTE | 2017-04-24 15:45 | P.PN ---
Subjective 72-year-old being seen this morning on rounds sitting up in bed. Patient's currently denying any abdominal pain. Patient did have an EGD by Dr. Mckeon on April 19. This did show an irregular mass in the duodenal sweep which was biopsied. The biopsy report reviewed shows adenocarcinoma and background fragments of adenoma hemoglobin on the 7.5 Objective - Vital Signs Vital signs: Vital Signs Temp 98 F 04/24/17 15:00 Pulse 58 L 04/24/17 15:00 Resp 16 04/24/17 15:00 BP 142/66 04/24/17 15:00 Pulse Ox 93 L 04/24/17 15:00 Intake & Output 04/23/17 04/24/17 04/24/17 18:59 06:59 18:59 Intake Total 400 890 Output Total 700 1300 Balance -300 -410 Weight 105.5 kg Intake: IV 400 550 Sodium Chloride 0.9% 1, 400 550 000 ml @ 50 mls/hr IV . Q20H [facility] Rx#:[id number] Oral 340 Output: Urine 700 1300 Uretheral (Chew) 700 800 Other: Voiding Method Indwelling Catheter Indwelling Catheter Indwelling Catheter # Voids 1 - Exam Physical exam 72-year-old female sitting up in bed appears in no acute distress Lungs essentially clear on room air sats are 93% Heart S1-S2 audible regular denying chest pain Abdomen soft nontender indwelling Chew catheter in place one bowel movement documented FIFTH reports no nausea vomiting Extremities no edema noted - Labs CBC & Chem 7: 04/23/17 07:28 04/24/17 07:19 Labs: Abnormal Lab Results - Last 24 Hours (Table) 04/23/17 04/24/17 Range/Units 20:17 07:19 Chloride 112 H (98-107) mmol/L Carbon Dioxide 21 L (22-30) mmol/L Glucose 71 L (74-99) mg/dL POC Glucose (mg/dL) 100 H (75-99) mg/dL Total Protein 4.5 L (6.3-8.2) g/dL Albumin 2.0 L (3.5-5.0) g/dL Assessment and Plan Plan: Impression Present on admission symptomatic acute blood loss anemia suspect due to a GI bleed necessitating 4 units of packed red blood cells to be infused Acute blood loss anemia Small bowel bleed per small bowel capsule endoscopy located in the duodenum early jejunum Present on admission left lower extremity pain suspect due to a fall from standing several days prior to admission resulting in a left closed distal fibular fracture Left lower pain present on admission due to distal femoral fracture Status post EGD April 19 showing ulcerated mass in the duodenum status post biopsies A history of chronic urinary incontinence Electrolyte abnormality hypokalemia corrected resolved Duodenum biopsy of the ulcerative mass shows adenocarcinoma and background fragments of adenoma Plan Continue recommendations oncology hematology Await surgical service eval Monitor hemoglobin attempt keep greater than 7 DVT and GI prophylaxis Pain control Repeat labs in the morning The above impression and plan of care have been discussed and directed by signing physician. Ely Bell nurse practitioner acting as scribe for signing physician.
[2017-04-24 15:52] VITALS: BMI 45.4
[2017-04-24 16:53] LABS: Glucose,Whole Blood 102 mg/dL (75-99)
--- NOTE | 2017-04-24 17:18 | P.GSCN ---
History of Present Illness Consult date: 04/24/17 Reason for Consult: Duodenal mass History of present illness: Patient is hospitalized after a syncopal episode. She is found have a left foot fracture. She is found to be anemic. During the hospital stay she has received a total of 4 units of packed red blood cells. She underwent endoscopy and was found to have an ulcerated mass in the duodenum. She had a CAT scan of the chest abdomen and pelvis which showed no definite pancreatic or duodenal mass although there was some dilatation of the biliary tree. No evidence of metastasis was seen. The patient says that over the last 3-4 months she has had vague mid abdominal discomforts. She was heme positive stools. Denies rectal bleeding or melena. No hematemesis. Review of Systems The patient denies any acute changes in vision or hearing, no dysphagia or odynophagia, no chest pain or shortness of breath, no dysuria or hematuria, no headache, no runny nose, no rectal bleeding or melena, she has had some weight loss as a result of her diminished appetite Past Medical History Past Medical History: Hyperlipidemia, Hypertension, Thyroid Disorder Additional Past Medical History / Comment(s): Chronic anemia, antral gastritis and colonic polyps based on the most recent EGD and colonoscopy done at [facility] 02/17/2017, positive H. pylori, hypertension, hyperlipidemia , hypothyroidism History of Any Multi-Drug Resistant Organisms: None Reported Past Surgical History: Breast Surgery, Hysterectomy Past Psychological History: No Psychological Hx Reported Smoking Status: Never smoker Past Alcohol Use History: None Reported Past Drug Use History: None Reported Medications and Allergies Home Medications Medication Instructions Recorded Confirmed Type Aspirin EC [Ecotrin] 81 mg PO DAILY 03/10/16 04/13/17 History Atorvastatin [Lipitor] 40 mg PO DAILY 03/10/16 04/13/17 History Chlorthalidone [Hygroton] 25 mg PO DAILY 03/10/16 04/13/17 History Cholecalciferol [Vitamin D3] 2,000 unit PO DAILY 03/10/16 04/13/17 History Levothyroxine Sodium [Synthroid] 100 mcg PO DAILY 03/10/16 04/13/17 History Losartan Potassium 100 mg PO DAILY 03/10/16 04/13/17 History amLODIPine [Norvasc] 5 mg PO DAILY 03/10/16 04/13/17 History Ferrous Sulfate [Feosol] 325 mg PO TID 04/13/17 04/13/17 History Allergies Allergy/AdvReac Type Severity Reaction Status Date / Time No Known Allergies Allergy Verified 04/13/17 19:18 Surgical - Exam Vital Signs Pulse Resp BP Pulse Ox 84 24 96/54 85 L 04/13/17 18:23 04/13/17 18:23 04/13/17 18:23 04/13/17 18:23 Physical exam: General: Well-developed, well-nourished HEENT: Normocephalic, sclerae nonicteric Abdomen: Mild mid abdominal tenderness, nondistended Extremities: No edema Neuro: Alert and oriented Results - Labs 04/23/17 07:28 04/24/17 07:19 Abnormal Lab Results - Last 24 Hours (Table) 04/23/17 04/24/17 04/24/17 Range/Units 20:17 07:19 16:45 Chloride 112 H (98-107) mmol/L Carbon Dioxide 21 L (22-30) mmol/L Glucose 71 L (74-99) mg/dL POC Glucose (mg/dL) 100 H 102 H (75-99) mg/dL Total Protein 4.5 L (6.3-8.2) g/dL Albumin 2.0 L (3.5-5.0) g/dL Diabetes panel 04/24/17 Range/Units 07:19 Sodium 139 (137-145) mmol/L Potassium 4.1 (3.5-5.1) mmol/L Chloride 112 H (98-107) mmol/L Carbon Dioxide 21 L (22-30) mmol/L BUN 10 (7-17) mg/dL Creatinine 0.74 (0.52-1.04) mg/dL Glucose 71 L (74-99) mg/dL Calcium 8.4 (8.4-10.2) mg/dL AST 17 (14-36) U/L ALT 22 (9-52) U/L Alkaline Phosphatase 74 (38-126) U/L Total Protein 4.5 L (6.3-8.2) g/dL Albumin 2.0 L (3.5-5.0) g/dL Calcium panel 04/24/17 Range/Units 07:19 Calcium 8.4 (8.4-10.2) mg/dL Albumin 2.0 L (3.5-5.0) g/dL Pituitary panel 04/24/17 Range/Units 07:19 Sodium 139 (137-145) mmol/L Potassium 4.1 (3.5-5.1) mmol/L Chloride 112 H (98-107) mmol/L Carbon Dioxide 21 L (22-30) mmol/L BUN 10 (7-17) mg/dL Creatinine 0.74 (0.52-1.04) mg/dL Glucose 71 L (74-99) mg/dL Calcium 8.4 (8.4-10.2) mg/dL Adrenal panel 04/24/17 Range/Units 07:19 Sodium 139 (137-145) mmol/L Potassium 4.1 (3.5-5.1) mmol/L Chloride 112 H (98-107) mmol/L Carbon Dioxide 21 L (22-30) mmol/L BUN 10 (7-17) mg/dL Creatinine 0.74 (0.52-1.04) mg/dL Glucose 71 L (74-99) mg/dL Calcium 8.4 (8.4-10.2) mg/dL Total Bilirubin 0.3 (0.2-1.3) mg/dL AST 17 (14-36) U/L ALT 22 (9-52) U/L Alkaline Phosphatase 74 (38-126) U/L Total Protein 4.5 L (6.3-8.2) g/dL Albumin 2.0 L (3.5-5.0) g/dL Assessment and Plan (1) Mass of duodenum Narrative/Plan: The location of the mass and the potential need for surgical resection was discussed. The surgical procedure was reviewed as well. Given its location this is a lesion that would require a tertiary care evaluation. Consideration for inpatient versus outpatient evaluation at either [facility] or [facility] was discussed. Plan repeat CBC tomorrow if the patient's hemoglobin remained stable would consider outpatient follow-up. Status: Acute
[2017-04-24 18:34] LABS: Appearance,Urine Turbid (Clear); Bacteria,Urine Rare /hpf; Bilirubin,Urine Negative (Negative); Glucose,Urine (UA) Negative (Negative); Ketones,Urine Negative (Negative); Leukocyte Esterase,Urine Large (Negative); Mucus,Urine Occasional /hpf; Nitrite,Urine Positive (Negative); PH, Urine 5.5 (5.0-8.0); Particle Count 25413; Protein,Urine Trace (Negative); RBC,Urine 6 /hpf (0-5); Specific Gravity,Urine 1.009 (1.001-1.035); UA Billing (MACRO vs. MICRO) MICRO; Urobilinogen,Urine <2.0 mg/dL (<2.0); WBC,Urine >182 /hpf (0-5)
[2017-04-24 21:05] LABS: Glucose,Whole Blood 101 mg/dL (75-99)
[2017-04-25] MEDS: PANTOPRAZOLE 40 MG TABLET PO SCH (07:41)
--- NOTE | 2017-04-25 07:49 | PN ---
DATE OF SERVICE: 04/23/17 CHIEF COMPLAINT: CA of the small bowel. HISTORY OF PRESENT ILLNESS: This lady is doing well and she is comfortable and she has had no further bleeding. We are awaiting a decision from Surgery. PHYSICAL EXAMINATION;: Head, ears, eyes, nose, mouth and throat are normal and the chest is clear. The cardiac exam is normal and the abdomen is protuberant, soft and nontender. 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 PLAN: Await recommendation from Surgery. RAYRAY
[2017-04-25 08:01] LABS: Glucose,Whole Blood 79 mg/dL (75-99)
[2017-04-25 08:06] LABS: Anisocytosis Slight; Basophils % (A) 1 %; CHCM 30.2; Eosinophils # (A) 0.3 k/uL (0-0.7); Eosinophils % (A) 5 %; HCT 27.6 % (34.0-46.0); HDW 4.27; HGB 8.4 gm/dL (11.4-16.0); Hypochromasia Marked; Luc # (Auto) 0.13; Luc % (Auto) 2; Lymphocytes # (A) 1.1 k/uL (1.0-4.8); Lymphocytes % (A) 20 %; MCH 25.3 pg (25.0-35.0); MCHC 30.5 g/dL (31.0-37.0); Mean Platelet Volume 7.4; Microcytosis Slight; Monocytes # (A) 0.4 k/uL (0-1.0); Monocytes % (A) 7 %; Neutrophils # (A) 3.6 k/uL (1.3-7.7); Neutrophils % (A) 65 %; Poikilocytosis Moderate; RBC 3.33 m/uL (3.80-5.40); RDW 19.5 % (11.5-15.5); WBC 5.6 k/uL (3.8-10.6); WBC (Perox) 5.85
[2017-04-25 08:13] LABS: ALT 20 U/L (9-52); AST 21 U/L (14-36); Alkaline Phosphatase 83 U/L (38-126); Anion Gap 7 mmol/L; Blood Urea Nitrogen 8 mg/dL (7-17); Calcium 8.7 mg/dL (8.4-10.2); Carbon Dioxide 20 mmol/L (22-30); Chloride 113 mmol/L (98-107); Glucose 74 mg/dL (74-99); Non-African American GFR(MDRD) >60 (>60 ml/min/1.73 sqM); Potassium 4.1 mmol/L (3.5-5.1); Sodium 140 mmol/L (137-145); Total Bilirubin 0.4 mg/dL (0.2-1.3)
--- NOTE | 2017-04-25 08:21 | PN ---
CHIEF COMPLAINT: GI bleed. HISTORY OF PRESENT ILLNESS; This lady is doing well and she has had no further bleeding. We are awaiting decision from Surgery as to next appropriate management step. This may include surgery. PHYSICAL EXAM: She remains pale, but awake and alert. The skin is dry and and lymph nodes are not enlarged. Head, ears, eyes, nose, mouth and throat were normal and the neck veins were not distended. The thyroid is not enlarged and her chest is clear and the abdomen is soft. IMPRESSION: Adenocarcinoma of the duodenum. PLAN: Await Surgery's recommendation for treatment. MTDD
[2017-04-25 08:22] LABS: Manual Review Performed
[2017-04-25 08:23] LABS: Large Platelets Present
[2017-04-25] MEDS: HYDROcodone/APAP 5-325MG 1 EACH TAB PO PRN (08:23)
[2017-04-25 08:35] VITALS: BP 177/94; PULSE 60; RESP 18; TEMP 98.3
[2017-04-25] MEDS ORDERED: LEVOFLOXACIN 500MG-D5W PMX 500 MG in DEXTROSE/WATER 1 100ML.BAG IVPB SCH (10:00)
[2017-04-25] MEDS: SODIUM CHLORIDE 0.9% 1,000 ML IV SCH (10:21)
--- NOTE | 2017-04-25 10:53 | P.PN ---
Subjective 72 female being seen on rounds. Currently sitting up in bed. The discharge plan discussed with the patient and the employment case manager. Did review recommendations by surgical service Dr. Moreno given the location of the lesion it would require a tertiary care evaluation. Such as [facility]. If the patient's hemoglobin remained stable would consider an outpatient follow-up additionally spoke with Dr. Boyd hematology oncology who recommends patient to be discharged to an ECF facility for rehab after rehab is completed patient would need a PET scan done and then outpatient follow-up with hematology oncology service for decision on how to treat the mass. Patient did undergo an EGD as part of a workup on April [address] Mckeon it showed an irregular mass in the duodenal sweep which has been biopsied and is positive for cancer patient has undergone a CAT scan of the chest abdomen pelvis with contrast done on April 22 reviewing the report showed a 2.9 cm right adnexa/ ovarian. Moderate to large fat-containing umbilical hernia patient reportedly had one bowel movement the day before nursing reports no blood noted Objective - Vital Signs Vital signs: Vital Signs Temp 98.3 F 04/25/17 07:00 Pulse 60 04/25/17 07:00 Resp 18 04/25/17 07:00 BP 177/94 04/25/17 07:00 Pulse Ox 95 04/25/17 07:00 Intake & Output 04/24/17 04/25/17 04/25/17 18:59 06:59 18:59 Intake Total 600 520 Output Total 700 Balance -100 520 Weight 105.5 kg Intake: IV 600 Sodium Chloride 0.9% 1, 600 000 ml @ 50 mls/hr IV . Q20H ANAI Rx#:[id number] Intake, IV Titration 400 Amount Sodium Chloride 0.9% 1, 400 000 ml @ 50 mls/hr IV . Q20H ANAI Rx#:[id number] Oral 120 Output: Urine 700 Uretheral (Chew) 700 Other: Voiding Method Indwelling Catheter Bedpan Bedpan - Exam Physical exam 72-year-old female sitting up in bed appears in no acute distress patient does report having an episode this morning of epigastric discomfort feeling short of breath nursing reports when they be positioned the patient did set her upright in bed the symptoms had resolved Lungs essentially clear on room air sats are 95 percent no wheezing noted no shortness of breath with conversation Heart S1-S2 audible regular denying chest pain no murmur noted Abdomen soft nontender indwelling Chew catheter removed yesterday patient is urinating states has frequency and urgency with incontinence which patient states is not new. Reports no nausea vomiting no frequent stooling Extremities no edema noted - Labs CBC & Chem 7: 04/25/17 07:31 04/25/17 07:31 Labs: Abnormal Lab Results - Last 24 Hours (Table) 04/24/17 04/24/17 04/24/17 Range/Units 16:45 17:55 20:44 RBC (3.80-5.40) m/uL Hgb (11.4-16.0) gm/dL Hct (34.0-46.0) % MCHC (31.0-37.0) g/dL RDW (11.5-15.5) % Chloride (98-107) mmol/L Carbon Dioxide (22-30) mmol/L POC Glucose (mg/dL) 102 H 101 H (75-99) mg/dL Total Protein (6.3-8.2) g/dL Albumin (3.5-5.0) g/dL Urine Appearance Turbid H (Clear) Urine Protein Trace H (Negative) Urine Blood Moderate H (Negative) Urine Nitrite Positive H (Negative) Ur Leukocyte Esterase Large H (Negative) Urine RBC 6 H (0-5) /hpf Urine WBC >182 H (0-5) /hpf Urine WBC Clumps Many H (None) /hpf Urine Bacteria Rare H (None) /hpf Urine Mucus Occasional H (None) /hpf Urine Yeast (Budding) Moderate H (None) /hpf 04/25/17 04/25/17 Range/Units 07:31 07:31 RBC 3.33 L (3.80-5.40) m/uL Hgb 8.4 L (11.4-16.0) gm/dL Hct 27.6 L (34.0-46.0) % MCHC 30.5 L (31.0-37.0) g/dL RDW 19.5 H (11.5-15.5) % Chloride 113 H (98-107) mmol/L Carbon Dioxide 20 L (22-30) mmol/L POC Glucose (mg/dL) (75-99) mg/dL Total Protein 5.0 L (6.3-8.2) g/dL Albumin 2.2 L (3.5-5.0) g/dL Urine Appearance (Clear) Urine Protein (Negative) Urine Blood (Negative) Urine Nitrite (Negative) Ur Leukocyte Esterase (Negative) Urine RBC (0-5) /hpf Urine WBC (0-5) /hpf Urine WBC Clumps (None) /hpf Urine Bacteria (None) /hpf Urine Mucus (None) /hpf Urine Yeast (Budding) (None) /hpf Microbiology - Last 24 Hours (Table) 04/24/17 17:55 Urine Culture - Preliminary Urine,Catheterized Assessment and Plan Plan: Impression Present on admission symptomatic acute blood loss anemia suspect due to a GI bleed necessitating 4 units of packed red blood cells to be infused Acute blood loss anemia Small bowel bleed per small bowel capsule endoscopy located in the duodenum early jejunum Present on admission left lower extremity pain suspect due to a fall from standing several days prior to admission April 13 resulting in a left closed distal fibular fracture with nonweightbearing with boot in place 6 weeks Left lower pain present on admission due to distal femoral fracture Status post EGD April 19 showing ulcerated mass in the duodenum status post biopsies A history of chronic urinary incontinence Electrolyte abnormality hypokalemia corrected resolved Duodenum biopsy of the ulcerative mass shows adenocarcinoma and background fragments of adenoma UTI noted on April 24 suspect due to indwelling Chew catheter Plan Continue recommendations oncology hematology Surgical eval noted and appreciated the recommending patient be followed in a tertiary center for the surgical procedure Spoke with the employment case manager pursuing discharge plan patients being evaluated for subacute rehab possible transfer in the next 24 hours Follow-up on urine culture pending continue IV Levaquin as ordered Repeat labs this morning PT OT encourage patient to be up Repeat hemoglobin now Patient will need follow-up PET scan in the outpatient setting after patient has completed [facility] Monitor hemoglobin attempt keep greater than 7 DVT and GI prophylaxis Pain control Repeat labs in the morning The above impression and plan of care have been discussed and directed by signing physician. Ely Bell nurse practitioner acting as scribe for signing physician.
--- NOTE | 2017-04-25 10:54 | XR ---
EXAMINATION TYPE: XR chest 2V DATE OF EXAM: 04/25/2017 COMPARISON: NONE TECHNIQUE: PA and lateral views submitted. HISTORY: Shortness of breath FINDINGS: Bilateral lower lobe consolidation and small effusion. The heart is prominent there is interstitial p rominence centrally. No obvious pneumothorax. Atherosclerotic change aorta. IMPRESSION: 1. Bilateral infiltrate and pleural effusion correlate for venous congestion and CHF.
[2017-04-25 11:36] LABS: Glucose,Whole Blood 117 mg/dL (75-99)
[2017-04-25] MEDS ORDERED: RX INFO: IV CONTRAST WAS GIVEN 1 EACH MISC MISCELLANE PRN (11:54)
--- NOTE | 2017-04-25 13:22 | P.PN ---
Subjective Principal diagnosis: Duodenal mass Patient says her pain is improved. No rectal bleeding or melena. She is tolerating her diet although in small volumes. Objective - Vital Signs Vital signs: Vital Signs Temp 98.3 F 04/25/17 07:00 Pulse 60 04/25/17 07:00 Resp 18 04/25/17 07:00 BP 177/94 04/25/17 07:00 Pulse Ox 95 04/25/17 07:00 Intake & Output 04/24/17 04/25/17 04/25/17 18:59 06:59 18:59 Intake Total 600 520 Output Total 700 Balance -100 520 Weight 105.5 kg Intake: IV 600 Sodium Chloride 0.9% 1, 600 000 ml @ 50 mls/hr IV . Q20H ANAI Rx#:[id number] Intake, IV Titration 400 Amount Sodium Chloride 0.9% 1, 400 000 ml @ 50 mls/hr IV . Q20H ANAI Rx#:[id number] Oral 120 Output: Urine 700 Uretheral (Chew) 700 Other: Voiding Method Indwelling Catheter Bedpan Bedpan - Exam Abdomen: Soft, mild upper abdominal tenderness, no palpable mass - Labs CBC & Chem 7: 04/25/17 07:31 04/25/17 07:31 Labs: Abnormal Lab Results - Last 24 Hours (Table) 04/24/17 04/24/17 04/24/17 Range/Units 16:45 17:55 20:44 RBC (3.80-5.40) m/uL Hgb (11.4-16.0) gm/dL Hct (34.0-46.0) % MCHC (31.0-37.0) g/dL RDW (11.5-15.5) % D-Dimer (<0.60) mg/L FEU Chloride (98-107) mmol/L Carbon Dioxide (22-30) mmol/L POC Glucose (mg/dL) 102 H 101 H (75-99) mg/dL Troponin I (0.000-0.034) ng/mL Total Protein (6.3-8.2) g/dL Albumin (3.5-5.0) g/dL Urine Appearance Turbid H (Clear) Urine Protein Trace H (Negative) Urine Blood Moderate H (Negative) Urine Nitrite Positive H (Negative) Ur Leukocyte Esterase Large H (Negative) Urine RBC 6 H (0-5) /hpf Urine WBC >182 H (0-5) /hpf Urine WBC Clumps Many H (None) /hpf Urine Bacteria Rare H (None) /hpf Urine Mucus Occasional H (None) /hpf Urine Yeast (Budding) Moderate H (None) /hpf 04/25/17 04/25/17 04/25/17 Range/Units 07:31 07:31 10:30 RBC 3.33 L (3.80-5.40) m/uL Hgb 8.4 L (11.4-16.0) gm/dL Hct 27.6 L (34.0-46.0) % MCHC 30.5 L (31.0-37.0) g/dL RDW 19.5 H (11.5-15.5) % D-Dimer 4.26 H (<0.60) mg/L FEU Chloride 113 H (98-107) mmol/L Carbon Dioxide 20 L (22-30) mmol/L POC Glucose (mg/dL) (75-99) mg/dL Troponin I (0.000-0.034) ng/mL Total Protein 5.0 L (6.3-8.2) g/dL Albumin 2.2 L (3.5-5.0) g/dL Urine Appearance (Clear) Urine Protein (Negative) Urine Blood (Negative) Urine Nitrite (Negative) Ur Leukocyte Esterase (Negative) Urine RBC (0-5) /hpf Urine WBC (0-5) /hpf Urine WBC Clumps (None) /hpf Urine Bacteria (None) /hpf Urine Mucus (None) /hpf Urine Yeast (Budding) (None) /hpf 04/25/17 04/25/17 Range/Units 10:30 11:16 RBC (3.80-5.40) m/uL Hgb (11.4-16.0) gm/dL Hct (34.0-46.0) % MCHC (31.0-37.0) g/dL RDW (11.5-15.5) % D-Dimer (<0.60) mg/L FEU Chloride (98-107) mmol/L Carbon Dioxide (22-30) mmol/L POC Glucose (mg/dL) 117 H (75-99) mg/dL Troponin I 0.144 H* (0.000-0.034) ng/mL Total Protein (6.3-8.2) g/dL Albumin (3.5-5.0) g/dL Urine Appearance (Clear) Urine Protein (Negative) Urine Blood (Negative) Urine Nitrite (Negative) Ur Leukocyte Esterase (Negative) Urine RBC (0-5) /hpf Urine WBC (0-5) /hpf Urine WBC Clumps (None) /hpf Urine Bacteria (None) /hpf Urine Mucus (None) /hpf Urine Yeast (Budding) (None) /hpf Microbiology - Last 24 Hours (Table) 04/24/17 17:55 Urine Culture - Preliminary Urine,Catheterized Assessment and Plan (1) Mass of duodenum Narrative/Plan: Continue encouraging oral intake. Follow hemoglobin. Agree with current plans of outpatient PET scan and tertiary care evaluation for possible surgical resection. No surgical intervention planned at our institution at this point. We'll sign off. Please contact if needed. Status: Acute
--- NOTE | 2017-04-25 13:52 | CT ---
EXAMINATION TYPE: CT chest angio for PE DATE OF EXAM: 04/25/2017 COMPARISON: 04/22/2017 HISTORY: Patient has no complaints at time of study. Elevated d-dimer. CT DLP: 512 mGycm Automated exposure control for dose reduction was used. CONTRAST: CT Chest for pulmonary embolism performed with with IV Contrast, patient injected with 100 mL of Omni paque 350. FINDINGS: LUNGS: Evaluation of lung parenchyma is suboptimal as there is significant degradation by motion lenora fact particularly in evaluating for subcentimeter nodularity. There are small to moderate-sized bilat eral pleural effusions. There is associated compressive atelectasis in the lung bases. There is overa ll low lung volumes. Interstitial process noted centrally. Tracheobronchial tree is grossly patent. MEDIASTINUM: There are no greater than 1 cm hilar or mediastinal lymph nodes. Tiny pericardial effusi on anteriorly and inferiorly is seen. Cardiomegaly is present. Coronary artery calcification is prese nt which is noted marker for coronary artery disease There is filling defects within the right main pulmonary artery and its secondary and distal branches compatible with pulmonary embolism. There are filling defects within the distal branch of the left p ulmonary artery compatible with pulmonary embolus. OTHER: Heterogeneously dense fibroglandular tissue in both breasts is seen. Thyroid is atrophic or fraire rgically absent. Nonspecific adrenal gland thickening bilaterally stable previous. IMPRESSION: Acute pulmonary embolism right main pulmonary artery and its secondary and distal branches. Distal br anch left-sided pulmonary embolism also noted. Report called to the patient's nurse. Bilateral pleural effusions and interstitial process correlate for CHF. A Red message has been communicated to Sebastian Miguel MD via the [employer] system on 04/25/2017 1:47 PM, Message ID [id number].
[2017-04-25 13:57] LABS: Anisocytosis Moderate; Basophils % (A) 1 %; CH 25.4; CHCM 30.1; Eosinophils # (A) 0.2 k/uL (0-0.7); Eosinophils % (A) 4 %; HCT 28.1 % (34.0-46.0); HDW 4.19; HGB 8.3 gm/dL (11.4-16.0); Hypochromasia Marked; Luc % (Auto) 2; Lymphocytes # (A) 0.9 k/uL (1.0-4.8); Lymphocytes % (A) 19 %; MCH 24.9 pg (25.0-35.0); MCHC 29.5 g/dL (31.0-37.0); MCV 84.6 fL (80.0-100.0); Mean Platelet Volume 7.8; Microcytosis Slight; Monocytes # (A) 0.3 k/uL (0-1.0); Monocytes % (A) 7 %; Neutrophils # (A) 3.1 k/uL (1.3-7.7); Neutrophils % (A) 67 %; Poikilocytosis Moderate; RBC 3.32 m/uL (3.80-5.40); RDW 20.1 % (11.5-15.5); WBC 4.7 k/uL (3.8-10.6); WBC (Perox) 5.29
[2017-04-25] MEDS ORDERED: HEPARIN SODIUM,PORCINE 10,000 UNIT/ML 1 ML VIAL IV PRN (14:08)
[2017-04-25] MEDS ORDERED: HEPARIN SODIUM,PORCINE 10,000 UNIT/ML 1 ML VIAL IV ONE (14:15)
[2017-04-25] MEDS ORDERED: HEPARIN SODIUM,PORCINE/D5W PMX 25,000 UNIT in DEXTROSE/WATER 1 500ML.BAG IV SCH (14:15)
--- NOTE | 2017-04-25 14:59 | P.DS ---
Providers Date of admission: 04/13/17 21:05 Expected date of discharge: 04/25/17 Attending physician: Sebastian Miguel Consults: 04/13/17 21:05 Consult Physician Urgent Consulting Provider: Johnny Mahoney Consult Reason/Comments: Critical care management Do you want consulting provider notified?: Yes Consult Physician Urgent Consulting Provider: Vijay Moreno Consult Reason/Comments: GI bleed Do you want consulting provider notified?: Yes 04/19/17 14:39 Consult Physician Urgent Consulting Provider: Vijay Moreno Consult Reason/Comments: duodenal mass found during EGD Do you want consulting provider notified?: Yes 04/22/17 09:07 Consult Physician Routine Consulting Provider: Anthony Boyd Consult Reason/Comments: duodenal adenoca Do you want consulting provider notified?: Yes 04/24/17 15:33 Consult Physician Urgent Consulting Provider: Vijay Moreno Consult Reason/Comments: Ulcerated mass in the duodenum biopsies positive cancer Do you want consulting provider notified?: Yes 04/25/17 13:45 Consult Physician Urgent Consulting Provider: Akira Saravia Consult Reason/Comments: Mildly elevated troponin Do you want consulting provider notified?: Yes Primary care physician: Sebastian Miguel [facility] Course: 72-year-old female presented on the day of admission to the emergency room on the patient has a past medical history for hypertension. Patient came into the emergency room because she had been feeling weak and she fell down. She states she was feeling weak and fell the second time this time she hurt her ankle. She denied any dizziness lightheadedness denying chest pain or heart palpitations. Patient denied abdominal pain. Denied any nausea vomiting or diarrhea. She states she has a history of anemia and does take iron supplements stool for occult blood was positive patient was admitted for generalized weakness and suspected a GI bleed. Patient did sustain a fracture to her left ankle. Orthopedic associate did see patient. They recommended the patient be nonweightbearing for at least 6 6 weeks. Patient was put in an immobilizer boot. Hemoglobin on admission was 7.2. Patient was admitted to the intensive care unit for close monitoring did initially receive 1 unit of packed red blood cells. Patient was recently seen in another facility and was investigated for GI bleed and anemia. Patient apparently underwent an upper and lower endoscopic was found have mild gastritis with positive H. pylori. Patient was found have a colon polyp that was removed. Patient seen by gastroenterology service. Patient did undergo a small bowel capsule endoscopic which did show bleeding in the duodenum. Patient underwent an EGD evaluation on the april the EGD evaluation showed findings of an ulcerated mass in the duodenum. Biopsies were obtained they were positive for cancer. Patient was seen by surgical service Dr. Moreno who recommended the patient go to a tertiary care and be evaluated for possible surgical resection no surgical intervention planned at this institution at this point. She will additionally was seen by Dr. Boyd hematology oncology. Patient did have a CAT scan of the chest abdomen and pelvis on April 22 CAT scan of the chest abdomen and pelvis showed suspect heart failure, medically with [id number] bilateral pleural effusion. There was a 2.9 cm right ovary lesion. With a moderate to large sized fat-containing umbilical hernia the morning on April 25 the patient developed an episode of feeling short of breath. D-dimer was obtained with elevated this was followed up with a CAT scan chest angiogram for pulmonary emboli. There was small to moderate bilateral pleural effusions. Filling defects within the right main pulmonary artery secondary and distal branches compatible with a pulmonary emboli. This also filling defects in the distal branch of the left pulmonary artery compatible with pulmonary emboli as well. Given the patient's anemia with a possible GI bleed decision was to transfer the patient to a [facility] for further workup. Was concerned about starting IV heparin given the patient's GI bleed heparin IV was held. Decision was to transfer the patient patient's family updated on the plan. Hemoglobin was checked this afternoon was 8.4. Hemoglobin this morning was 8.4. Heart rate was in the 60s. Blood pressure 162/70 and on room air sats are 95% patient was afebrile temp is 98.3 on transfer Impression Present on admission symptomatic acute blood loss anemia suspect due to a GI bleed necessitating 4 units of packed red blood cells to be infused Acute blood loss anemia Small bowel bleed per small bowel capsule endoscopy located in the duodenum early jejunum Present on admission left lower extremity pain suspect due to a fall from standing several days prior to admission April 13 resulting in a left closed distal fibular fracture with nonweightbearing with boot in place 6 weeks Left lower pain present on admission due to distal femoral fracture Status post EGD April 19 showing ulcerated mass in the duodenum status post biopsies A history of chronic urinary incontinence Electrolyte abnormality hypokalemia corrected resolved 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 Ely Bell nurse practitioner acting as scribe for signing physician. Plan - Discharge Summary New Discharge Prescriptions: Continue Atorvastatin [Lipitor] 40 mg PO DAILY amLODIPine [Norvasc] 5 mg PO DAILY Aspirin EC [Ecotrin Low Dose] 81 mg PO DAILY Losartan Potassium 100 mg PO DAILY Levothyroxine Sodium [Synthroid] 100 mcg PO DAILY Cholecalciferol [Vitamin D3] 2,000 unit PO DAILY Chlorthalidone [Hygroton] 25 mg PO DAILY Ferrous Sulfate [Iron (65 MG Elemental)] 325 mg PO TID Discharge Medication List Aspirin EC [Ecotrin Low Dose] 81 mg PO DAILY 03/10/16 [History] Atorvastatin [Lipitor] 40 mg PO DAILY 03/10/16 [History] Chlorthalidone [Hygroton] 25 mg PO DAILY 03/10/16 [History] Cholecalciferol [Vitamin D3] 2,000 unit PO DAILY 03/10/16 [History] Levothyroxine Sodium [Synthroid] 100 mcg PO DAILY 03/10/16 [History] Losartan Potassium 100 mg PO DAILY 03/10/16 [History] amLODIPine [Norvasc] 5 mg PO DAILY 03/10/16 [History] Ferrous Sulfate [Iron (65 MG Elemental)] 325 mg PO TID 04/13/17 [History] Follow up Appointment(s)/Referral(s): Anthony Boyd MD [STAFF PHYSICIAN] - 05/03/17 3:45 pm Sebastian Miguel MD [Primary Care Provider] - 10 Days ( ) Deonte Mishra MD [Medical Doctor] - 1 Week (Patient may follow-up with Dr. Mishra at [facility] in 1 week following discharge.) Activity/Diet/Wound Care/Special Instructions: Walking boot ordered through [facility]: #[phone] 1. Patient must keep boot intact over the left lower extremity at all times 2. Keep boot clean, dry, and intact 3. Nonweightbearing left lower extremity 4. May elevate and apply ice over the left lower extremity for comfort support as needed PET scan being scheduled for 04/29/17 at [facility], appt time 2pm. Discharge Disposition: DC/TRNS INTERMEDIATE CARE FAC
--- NOTE | 2017-04-25 15:06 | P.PN ---
Subjective This is a 72-year-old female patient came into the hospital because of generalized weakness. The patient was feeling very weak and she had a fall and she tried to get up and she fell again and she sustained a fracture to her left ankle. She was also found to be anemic with a hemoglobin of 6.7 . She denies having any nausea or vomiting. She denied having any hematemesis. No bright red blood per rectum. No melena. No hematochezia. She came in to the ICU where she was given a unit of packed RBC and hemoglobin came up to 7.2. Denies alcoholism. Most of liver disease. No history of any intake of nonsteroidal anti-inflammatory medication. The patient was recently in [facility] and she was investigated for GI bleed and anemia. She underwent upper and lower endoscopies and she was found to have some mild gastritis with a positive H. pylori. She was also found to have a colonic polyp that was removed and do not to be benign. She is on oral iron. Her stool has been somewhat dark. Currently she is hemodynamically stable however she had a systolic blood pressure in the mid 90s at a time of arrival. She felt dizzy at that time and this has recovered. She denies having any chest pain. No focal neurological deficit. She has a large umbilical hernia that is easily reducible. Her last bowel movement was yesterday and no bowel movements for today. As mentioned, she fractured her left fibula with lateral posterior displacement of them metaphalangeal level and she'll be seen by orthopedic surgery. No chest pain. No shortness of breath. No angina. No change in mental status. No focal logical deficits at this point. The patient was seen again today 04/25/2017 in follow-up on the oncology unit. She had been stable from the pulmonary and critical care standpoint and we were following her on an as needed basis since 04/18/2017. 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 There is also a dense lesion on the ovary measuring 2.9 cm which was unusual in a postmenopausal woman and neoplasm is in the differential. She had been seen by oncology services who was planning a PET scan in the outpatient setting. Earlier today she developed complaints of shortness of breath which was new for her. A d- dimer was elevated and a subsequent CT angiogram did reveal a right main pulmonary artery emboli along with emboli in the secondary branches and the distal branch of the left lung as well. She is seen today resting quite flat in bed. She is maintaining O2 saturations in the mid 90s on room air. She's been afebrile. She denies any worsening shortness of breath, cough or congestion. CT angiogram did not reveal any significant right ventricular strain. Echocardiogram had normal RV measurements and mild pulmonary hypertension only. She is being followed by surgical services and based on her continued anemia and history of bleeding from the duodenal lesion no heparin will be ordered at this time. Objective - Vital Signs Vital signs: Vital Signs Temp 98.3 F 04/25/17 07:00 Pulse 60 04/25/17 07:00 Resp 18 04/25/17 07:00 BP 177/94 04/25/17 07:00 Pulse Ox 95 04/25/17 07:00 Intake & Output 04/24/17 04/25/17 04/25/17 18:59 06:59 18:59 Intake Total 600 520 Output Total 700 Balance -100 520 Weight 105.5 kg Intake: IV 600 Sodium Chloride 0.9% 1, 600 000 ml @ 50 mls/hr IV . Q20H ANAI Rx#:[id number] Intake, IV Titration 400 Amount Sodium Chloride 0.9% 1, 400 000 ml @ 50 mls/hr IV . Q20H ANAI Rx#:[id number] Oral 120 Output: Urine 700 Uretheral (Chew) 700 Other: Voiding Method Indwelling Catheter Bedpan Bedpan - Exam Patient is pale, comfortable likely distress.Head exam was generally normal. There was no scleral icterus or corneal arcus. Mucous membranes were moist.Neck was supple and without jugular venous distension, thyromegaly, or carotid bruits. Carotids were easily palpable bilaterally. There was no adenopathy. Lung sounds are diminished bilaterally otherwise clear. No wheezes or rhonchi or any crackles.Cardiac exam revealed the PMI to be normally situated and sized. The rhythm was regular and no extrasystoles were noted during several minutes of auscultation. The first and second heart sounds were normal and physiologic splitting of the second heart sound was noted. There were no murmurs , rubs, clicks, or gallops. Abdomen reveals an umbilical hernia which is large and it is easily reducible. No signs of incarceration or strangulation.Abdominal exam revealed normal bowel sounds. The abdomen was soft , non-tender, and without masses, organomegaly, or appreciable enlargement of the abdominal aorta.Examination of the extremities revealed easily palpable radial, femoral and pedal pulses. There was no cyanosis, clubbing or edema. - Labs CBC & Chem 7: 04/25/17 13:43 04/25/17 07:31 Labs: Abnormal Lab Results - Last 24 Hours (Table) 04/24/17 04/24/17 04/24/17 Range/Units 16:45 17:55 20:44 RBC (3.80-5.40) m/uL Hgb (11.4-16.0) gm/dL Hct (34.0-46.0) % MCH (25.0-35.0) pg MCHC (31.0-37.0) g/dL RDW (11.5-15.5) % Lymphocytes # (1.0-4.8) k/uL D-Dimer (<0.60) mg/L FEU Chloride (98-107) mmol/L Carbon Dioxide (22-30) mmol/L POC Glucose (mg/dL) 102 H 101 H (75-99) mg/dL Troponin I (0.000-0.034) ng/mL Total Protein (6.3-8.2) g/dL Albumin (3.5-5.0) g/dL Urine Appearance Turbid H (Clear) Urine Protein Trace H (Negative) Urine Blood Moderate H (Negative) Urine Nitrite Positive H (Negative) Ur Leukocyte Esterase Large H (Negative) Urine RBC 6 H (0-5) /hpf Urine WBC >182 H (0-5) /hpf Urine WBC Clumps Many H (None) /hpf Urine Bacteria Rare H (None) /hpf Urine Mucus Occasional H (None) /hpf Urine Yeast (Budding) Moderate H (None) /hpf 04/25/17 04/25/17 04/25/17 Range/Units 07:31 07:31 10:30 RBC 3.33 L (3.80-5.40) m/uL Hgb 8.4 L (11.4-16.0) gm/dL Hct 27.6 L (34.0-46.0) % MCH (25.0-35.0) pg MCHC 30.5 L (31.0-37.0) g/dL RDW 19.5 H (11.5-15.5) % Lymphocytes # (1.0-4.8) k/uL D-Dimer 4.26 H (<0.60) mg/L FEU Chloride 113 H (98-107) mmol/L Carbon Dioxide 20 L (22-30) mmol/L POC Glucose (mg/dL) (75-99) mg/dL Troponin I (0.000-0.034) ng/mL Total Protein 5.0 L (6.3-8.2) g/dL Albumin 2.2 L (3.5-5.0) g/dL Urine Appearance (Clear) Urine Protein (Negative) Urine Blood (Negative) Urine Nitrite (Negative) Ur Leukocyte Esterase (Negative) Urine RBC (0-5) /hpf Urine WBC (0-5) /hpf Urine WBC Clumps (None) /hpf Urine Bacteria (None) /hpf Urine Mucus (None) /hpf Urine Yeast (Budding) (None) /hpf 04/25/17 04/25/17 04/25/17 Range/Units 10:30 11:16 13:43 RBC 3.32 L (3.80-5.40) m/uL Hgb 8.3 L (11.4-16.0) gm/dL Hct 28.1 L (34.0-46.0) % MCH 24.9 L (25.0-35.0) pg MCHC 29.5 L (31.0-37.0) g/dL RDW 20.1 H (11.5-15.5) % Lymphocytes # 0.9 L (1.0-4.8) k/uL D-Dimer (<0.60) mg/L FEU Chloride (98-107) mmol/L Carbon Dioxide (22-30) mmol/L POC Glucose (mg/dL) 117 H (75-99) mg/dL Troponin I 0.144 H* (0.000-0.034) ng/mL Total Protein (6.3-8.2) g/dL Albumin (3.5-5.0) g/dL Urine Appearance (Clear) Urine Protein (Negative) Urine Blood (Negative) Urine Nitrite (Negative) Ur Leukocyte Esterase (Negative) Urine RBC (0-5) /hpf Urine WBC (0-5) /hpf Urine WBC Clumps (None) /hpf Urine Bacteria (None) /hpf Urine Mucus (None) /hpf Urine Yeast (Budding) (None) /hpf Microbiology - Last 24 Hours (Table) 04/24/17 17:55 Urine Culture - Preliminary Urine,Catheterized Assessment and Plan Plan: Assessment 1 Chronic microcytic anemia probably related to a low-grade gastrointestinal blood loss. She received a total of 4 units of packed red blood cells this admission. A biopsy of the duodenal mass does reveal adenocarcinoma. This was quite high in the duodenum and recommendations to a tertiary care facility were made per surgical services. 2 Antral gastritis and colonic polyps with a positive H. pylori based on the recent EGD and colonoscopy 3 Umbilical hernia, reducible 4 Recent fall with fracture of the left fibular 5 Hypertension 6 Hypothyroidism 7 Hypertension 8 Borderline hypotension at time of arrival to the hospital which improved with fluids. 9 Dyspnea secondary to bilateral pulmonary emboli her CT angiogram on 2016. No significant dyspnea. Maintaining good O2 saturations in the upper 90s on room air. No significant RV strain her CT or echocardiogram. Surgical services recommends no IV heparin at this time. Plan The patient's case was reviewed and discussed with Dr. Mahoney. He is aware of the CT angiogram results. The surgeon does not recommend IV heparin at this time based on her continued anemia. The plan is to transfer to [facility] for further treatment. The patient is agreeable and arrangements are being made by the primary care service.
[2017-04-25 15:10] LABS: INR 1.1 (<1.2); Prothrombin Time 11.3 sec (9.0-12.0)
[2017-04-25 15:29] LABS: Partial Thromboplastin Time 18.9 sec (22.0-30.0)
[2017-04-25] MEDS ORDERED: FERROUS SULFATE 325 MG TAB PO SCH (16:00)
--- NOTE | 2017-04-25 16:58 | P.PN ---
Subjective Principal diagnosis: GI bleed. Duodenal adenocarcinoma diagnosed Pt seen today in follow up, she tolerates liquids, small amounts of solids as she does have early satiety, denies vomiting or hematemesis, abd pain, she had a BM this AM. Pt had no other c/o this AM. Objective - Vital Signs Vital signs: Vital Signs Temp 98.3 F 04/25/17 07:00 Pulse 60 04/25/17 07:00 Resp 18 04/25/17 07:00 BP 177/94 04/25/17 07:00 Pulse Ox 95 04/25/17 07:00 Intake & Output 04/24/17 04/25/17 04/25/17 18:59 06:59 18:59 Intake Total 600 520 Output Total 700 Balance -100 520 Weight 105.5 kg Intake: IV 600 Sodium Chloride 0.9% 1, 600 000 ml @ 50 mls/hr IV . Q20H ANAI Rx#:[id number] Intake, IV Titration 400 Amount Sodium Chloride 0.9% 1, 400 000 ml @ 50 mls/hr IV . Q20H ANAI Rx#:[id number] Oral 120 Output: Urine 700 Uretheral (Chew) 700 Other: Voiding Method Indwelling Catheter Bedpan Bedpan - Exam Pt sitting up in bed, NAD, respirations even and unlabored. - Constitutional General appearance: Present: average body habitus, cooperative, no acute distress - Labs CBC & Chem 7: 04/25/17 13:43 04/25/17 07:31 Labs: Abnormal Lab Results - Last 24 Hours (Table) 04/24/17 04/24/17 04/24/17 Range/Units 16:45 17:55 20:44 RBC (3.80-5.40) m/uL Hgb (11.4-16.0) gm/dL Hct (34.0-46.0) % MCH (25.0-35.0) pg MCHC (31.0-37.0) g/dL RDW (11.5-15.5) % Lymphocytes # (1.0-4.8) k/uL APTT (22.0-30.0) sec D-Dimer (<0.60) mg/L FEU Chloride (98-107) mmol/L Carbon Dioxide (22-30) mmol/L POC Glucose (mg/dL) 102 H 101 H (75-99) mg/dL Troponin I (0.000-0.034) ng/mL Total Protein (6.3-8.2) g/dL Albumin (3.5-5.0) g/dL Urine Appearance Turbid H (Clear) Urine Protein Trace H (Negative) Urine Blood Moderate H (Negative) Urine Nitrite Positive H (Negative) Ur Leukocyte Esterase Large H (Negative) Urine RBC 6 H (0-5) /hpf Urine WBC >182 H (0-5) /hpf Urine WBC Clumps Many H (None) /hpf Urine Bacteria Rare H (None) /hpf Urine Mucus Occasional H (None) /hpf Urine Yeast (Budding) Moderate H (None) /hpf 04/25/17 04/25/17 04/25/17 Range/Units 07:31 07:31 10:30 RBC 3.33 L (3.80-5.40) m/uL Hgb 8.4 L (11.4-16.0) gm/dL Hct 27.6 L (34.0-46.0) % MCH (25.0-35.0) pg MCHC 30.5 L (31.0-37.0) g/dL RDW 19.5 H (11.5-15.5) % Lymphocytes # (1.0-4.8) k/uL APTT (22.0-30.0) sec D-Dimer 4.26 H (<0.60) mg/L FEU Chloride 113 H (98-107) mmol/L Carbon Dioxide 20 L (22-30) mmol/L POC Glucose (mg/dL) (75-99) mg/dL Troponin I (0.000-0.034) ng/mL Total Protein 5.0 L (6.3-8.2) g/dL Albumin 2.2 L (3.5-5.0) g/dL Urine Appearance (Clear) Urine Protein (Negative) Urine Blood (Negative) Urine Nitrite (Negative) Ur Leukocyte Esterase (Negative) Urine RBC (0-5) /hpf Urine WBC (0-5) /hpf Urine WBC Clumps (None) /hpf Urine Bacteria (None) /hpf Urine Mucus (None) /hpf Urine Yeast (Budding) (None) /hpf 04/25/17 04/25/17 04/25/17 Range/Units 10:30 11:16 13:43 RBC 3.32 L (3.80-5.40) m/uL Hgb 8.3 L (11.4-16.0) gm/dL Hct 28.1 L (34.0-46.0) % MCH 24.9 L (25.0-35.0) pg MCHC 29.5 L (31.0-37.0) g/dL RDW 20.1 H (11.5-15.5) % Lymphocytes # 0.9 L (1.0-4.8) k/uL APTT (22.0-30.0) sec D-Dimer (<0.60) mg/L FEU Chloride (98-107) mmol/L Carbon Dioxide (22-30) mmol/L POC Glucose (mg/dL) 117 H (75-99) mg/dL Troponin I 0.144 H* (0.000-0.034) ng/mL Total Protein (6.3-8.2) g/dL Albumin (3.5-5.0) g/dL Urine Appearance (Clear) Urine Protein (Negative) Urine Blood (Negative) Urine Nitrite (Negative) Ur Leukocyte Esterase (Negative) Urine RBC (0-5) /hpf Urine WBC (0-5) /hpf Urine WBC Clumps (None) /hpf Urine Bacteria (None) /hpf Urine Mucus (None) /hpf Urine Yeast (Budding) (None) /hpf 04/25/17 04/25/17 Range/Units 14:47 14:47 RBC (3.80-5.40) m/uL Hgb (11.4-16.0) gm/dL Hct (34.0-46.0) % MCH (25.0-35.0) pg MCHC (31.0-37.0) g/dL RDW (11.5-15.5) % Lymphocytes # (1.0-4.8) k/uL APTT 18.9 L (22.0-30.0) sec D-Dimer (<0.60) mg/L FEU Chloride (98-107) mmol/L Carbon Dioxide (22-30) mmol/L POC Glucose (mg/dL) (75-99) mg/dL Troponin I 0.133 H* (0.000-0.034) ng/mL Total Protein (6.3-8.2) g/dL Albumin (3.5-5.0) g/dL Urine Appearance (Clear) Urine Protein (Negative) Urine Blood (Negative) Urine Nitrite (Negative) Ur Leukocyte Esterase (Negative) Urine RBC (0-5) /hpf Urine WBC (0-5) /hpf Urine WBC Clumps (None) /hpf Urine Bacteria (None) /hpf Urine Mucus (None) /hpf Urine Yeast (Budding) (None) /hpf Microbiology - Last 24 Hours (Table) 04/24/17 17:55 Urine Culture - Preliminary Urine,Catheterized Assessment and Plan (1) Duodenal adenocarcinoma Narrative/Plan: Pt is aware of diagnosis of malignancy. Plan is for PET scan for staging. If pt has local disease she will need to be referred to tertiary center for surgical evaluation. If she has evidence of metastatic disease, and based on extensiveness, then surgery would not be a treatment option. Pt thinks she may be needing rehabilitation due to her foot fracture. It would be better if pt could have PET scan sooner then later. Case was discussed with Internal Medicine, PT notes reviewed. We will await recommendations and plan follow up accordingly. Status: Acute (2) Acute blood loss anemia Narrative/Plan: secondary to GI malignancy. Hgb stable, IV iron administered Status: Acute
[2017-04-26] MEDS ORDERED: LEVOTHYROXINE 100 MCG TAB PO SCH (06:30)
[2017-04-26] MEDS ORDERED: LOSARTAN 50 MG TAB PO SCH (09:00)
[2017-04-26] MEDS ORDERED: ASPIRIN 81 MG CHEW PO SCH (09:00)
[2017-04-26] MEDS ORDERED: CHLORTHALIDONE 25 MG TAB PO SCH (09:00)
[2017-04-26] MEDS ORDERED: ATORVASTATIN 40 MG TAB PO SCH (09:00)
[2017-04-26] MEDS ORDERED: amLODIPine 5 MG TAB PO SCH (09:00)
[2017-04-26] MEDS ORDERED: CHOLECALCIFEROL 1,000 UNIT TAB PO SCH (09:00)
--- NOTE | 2017-04-26 11:20 | ECHOF ---
Referral Reason:lv fxn MEASUREMENTS -------- HEIGHT: 152.4 cm WEIGHT: 105.2 kg BP: 177/84 RVIDd: 3.0 cm (< 3.3) IVSd: 1.1 cm (0.6 - 1.1) LVIDd: 4.0 cm (3.9 - 5.3) LVPWd: 1.1 cm (0.6 - 1.1) IVSs: 1.6 cm LVIDs: 2.9 cm LVPWs: 1.7 cm LA Diam: 3.6 cm (2.7 - 3.8) LAESV Index (A-L): 29.09 ml/m Ao Diam: 3.1 cm (2.0 - 3.7) AV Cusp: 2.0 cm (1.5 - 2.6) MV EXCURSION: 16.963 mm (> 18.000) MV EF SLOPE: 109 mm/s (70 - 150) EPSS: 0.2 cm MV E Rodo: 1.25 m/s MV DecT: 259 ms MV A Rodo: 1.41 m/s MV E/A Ratio: 0.88 AV maxP.90 mmHg AV meanP.36 mmHg RAP: 5.00 mmHg RVSP: 33.03 mmHg FINDINGS -------- Sinus rhythm. This was a technically good study. The left ventricular size is normal. There is borderline concentric left ventricular hypertrophy. Overall left ventricular systolic function is normal with, an EF between 60 - 65 %. The right ventricle is normal in size. LA is midly dilated 29-33ml/m2. The right atrium is normal in size. There is mild aortic valve sclerosis. There is mild aortic stenosis present. Peak/mean gradient across the Aortic Valve is 19.90mmHg / 8.36mmHg. Mild mitral annular calcification present. There is trace mitral regurgitation. Mild tricuspid regurgitation present. There is borderline pulmonary artery hypertension. Trace/mild (physiologic) pulmonic regurgitation. The aortic root size is normal. inferior vena cava with normal inspiratory collapse consistent with estimated right atrial pressure of 5 mmHg. The inferior vena cava is mildly dilated. There is no pericardial effusion. CONCLUSIONS -------- 1. Sinus rhythm. 2. There is mild aortic stenosis present. 3. Peak/mean gradient across the Aortic Valve is 19.90mmHg / 8.36mmHg. 4. Mild mitral annular calcification present. 5. There is trace mitral regurgitation. 6. Mild tricuspid regurgitation present. 7. There is borderline pulmonary artery hypertension. 8. Trace/mild (physiologic) pulmonic regurgitation. 9. The aortic root size is normal. 10. inferior vena cava with normal inspiratory collapse consistent with estimated right atrial pressure of 5 mmHg. 11. The inferior vena cava is mildly dilated. 12. This was a technically good study. 13. There is no pericardial effusion. 14. The left ventricular size is normal. 15. There is borderline concentric left ventricular hypertrophy. 16. Overall left ventricular systolic function is normal with, an EF between 60 - 65 %. 17. The right ventricle is normal in size. 18. LA is midly dilated 29-33ml/m2. 19. The right atrium is normal in size. 20. There is mild aortic valve sclerosis. [employer]IC: Mariely Selby RDCS
--- NOTE | 2017-04-26 19:06 | DS ---
CHIEF COMPLAINT: 1. Adenocarcinoma of the small bowel. 2. Blood loss anemia. 3. Shortness of breath. HISTORY OF PRESENT ILLNESS/PHYSICAL EXAMINATION: Details of this ladys history and physical examination can be found in the initial workup. LABORATORY STUDIES: While she was in the hospital, she had laboratory studies, the details of which can be found in the laboratory section of her chart. HOSPITAL COURSE: After admission, she was placed on bed rest, started on intravenous fluids and worked up for GI blood loss and anemia. She had several episode of massive GI bleeding and then they finally stopped. Colonoscopy was done and it was negative. Upper GI endoscopy was also normal. She subsequently underwent a capsule study. She identified bleeding and duodenum in the scope and found to have a mass in the duodenum which was biopsied and came back as adenocarcinoma. At that point, determination had to be made as to the direction of her treatment. It was decided that she may go to a senior living for two weeks for rehab and then be brought back for surgery after PET scan. However, the morning of discharge, she suddenly complained of shortness of breath and nausea. Studies indicated that she had bilateral pulmonary emboli with bilateral pleural effusions and pericardial effusion. At that point, it was decided that she should be transferred to a tertiary hospital and arrangements were made to refer her to [facility]. FINAL DIAGNOSES: 1. Upper gastrointestinal bleed. 2. Blood loss anemia. 3. Adenocarcinoma of the duodenum. 4. Pulmonary emboli. 5. Bilateral pleural effusions. 6. Pericardial effusion. 7. Fracture of the left fibula. OPERATIONS: Upper and lower GI endoscopy. CONSULTATIONS: Orthopedics and Gastroenterology as well as oncology. She is improved. RAYRAY
== END 2017-04-25 16:40 | disposition short-term general hospital (02) | DRG 374 ==
LOC: EC 18:20 → 6ICU 21:05 → 6SEL 04-14 18:41 → 5ONC 04-21 10:51
PROVIDERS: ADMIT Family Medicine; ATTEND Family Medicine
PROC: 30233N1 Transfusion of Nonautologous Red Blood Cells into Peripheral Vein, Percutaneous Approach (ICD-10-PCS; 2017-04-13)
PROC: 0DB98ZX Excision of Duodenum, Via Natural or Artificial Opening Endoscopic, Diagnostic (ICD-10-PCS; principal; 2017-04-19 13:50)
DX: C17.0 Malignant neoplasm of duodenum (principal); I26.99 Other pulmonary embolism without acute cor pulmonale; J90 Pleural effusion, not elsewhere classified; D62 Acute posthemorrhagic anemia; I27.2 Other secondary pulmonary hypertension; T83.511A Infection and inflammatory reaction due to indwelling urethral catheter, initial encounter; I10 Essential (primary) hypertension; E03.9 Hypothyroidism, unspecified; E78.00 Pure hypercholesterolemia, unspecified; E78.5 Hyperlipidemia, unspecified; E87.6 Hypokalemia; K29.60 Other gastritis without bleeding; K42.9 Umbilical hernia without obstruction or gangrene; R29.6 Repeated falls; S82.62XA Displaced fracture of lateral malleolus of left fibula, initial encounter for closed fracture; W01.0XXA Fall on same level from slipping, tripping and stumbling without subsequent striking against object, initial encounter; Y92.009 Unspecified place in unspecified non-institutional (private) residence as the place of occurrence of the external cause; Z79.899 Other long term (current) drug therapy; Z86.010 Personal history of colon polyps; Z86.19 Personal history of other infectious and parasitic diseases; Y73.8 Miscellaneous gastroenterology and urology devices associated with adverse incidents, not elsewhere classified
CPT/HCPCS: 29515; 36415; 43239; 71020; 71260; 71275; 74177; 80048; 80053; 81001; 82272; 82550; 82553; 83735; 84100; 84132; 84484; 85025; 85027; 85379; 85610; 85730; 86850; 86900; 86901; 86920; 87077; 87086; 87186; 88305; 91110; 93005; 93306; 99291

== ENCOUNTER → 2017-06-15 | Outpatient (CLI) | payer MEDICARE, BC ==
--- NOTE | 2017-06-15 15:12 | FL ---
EXAMINATION TYPE: FL UGI w small bowel DATE OF EXAM: 06/15/2017 COMPARISON: CT abdomen pelvis dated 04/22/2017 HISTORY: Duodenal adenocarcinoma, pathologically proven. TECHNIQUE: A double contrast UGI study is performed with small bowel follow through. FINDINGS: Car Wash Attendant image of the abdomen shows no obstructive process. Inferior vena cava filter spanned the L1-L3 vertebral levels. The distal esophagus shows normal motility and emptying into the stomach. Small hiatal hernia seen. N o evidence of stricture is noted. The stomach shows normal distensibility, peristalsis, and mucosal folds. No evidence of any mass or ulcer disease within the stomach. No significant esophageal reflux was seen during real time perform ance of this study. Duodenal bulb is unremarkable. However, within the medial aspect of the descending portion of the duo denum (second portion) approaching the third portion of the duodenum there is an an irregular contour with eccentric area of ulceration with persistent opacification persisting throughout the examinatio n. No evidence of perforation is identified. No skip lesions are seen. Small bowel fold pattern is un remarkable. Terminal ileum also appears unremarkable. Evaluation for of colonic polyps is somewhat li mited as there is debris within the cecum. The small bowel study shows normal transit to the colon in less than 35 minutes. There is normal muc osal fold pattern throughout the small bowel. There is no evidence of any stricture or filling defec t noted within the remainder of the small bowel excluding the duodenum. IMPRESSION: 1. Irregular contour of the descending duodenum approaching the third portion of the duodenum with mu cosal ulceration and persistent. Adherence of contrast throughout the examination thought to represen t the biopsy-proven adenocarcinoma. No skip lesions are identified. Mucosal fold pattern is otherwise unremarkable throughout the small bowel. 2. Small hiatal hernia.
== END | disposition home or self-care (01) ==
LOC: RADFLMAIN 08:37
PROVIDERS: ATTEND Internal Medicine Hematology & Oncology
DX: C17.0 Malignant neoplasm of duodenum (principal); K44.9 Diaphragmatic hernia without obstruction or gangrene; K26.9 Duodenal ulcer, unspecified as acute or chronic, without hemorrhage or perforation; Z88.8 Allergy status to other drugs, medicaments and biological substances
CPT/HCPCS: 74245

== ENCOUNTER → 2017-09-23 | Outpatient (CLI) | payer MEDICARE, BC ==
--- NOTE | 2017-09-23 21:10 | PE ---
EXAMINATION TYPE: PET CT fusion skull to thigh DATE OF EXAM: 09/23/2017 COMPARISON: CT chest abdomen and pelvis April 22, 2017. HISTORY: Malignant neoplasm of duodenum per order. TECHNIQUE: Following the intravenous administration of 13.76 mCi of F-18 FDG, whole body images are performed from the skull base to the midthigh. Images are reviewed on the computer in the coronal, a xial, and sagittal planes. Reconstructed rotating images are created on independent workstation and reviewed on the computer. A noncontrast CT is performed in conjunction with the PET scan. SCAN: Initial Scan FINDINGS: SKULL BASE AND NECK: Symmetric uptake at level of vocal cords may reflect product of phonation. Mild asymmetric uptake at left lung base axial image 25 should be correlated clinically with direct physi otilia exam, max SUV is 3.4. CHEST, MEDIASTINUM, AND HILAR REGION: No suspicious hypermetabolic uptake is seen in the thorax. ABDOMEN AND PELVIS: No suspicious hypermetabolic uptake is identified in the abdomen or pelvis with p articular attention to duodenum. OSSEOUS STRUCTURES: No suspicious hypermetabolic uptake is seen in osseous structures. Area of abnormal hypermetabolic uptake right elbow region likely reflects extravasated nuclear medici ne radiotracer. OTHER CT: There is right subclavian Mediport catheter terminating in SVC. There is cardiomegaly with coronary artery calcification which is noted marker for coronary artery di sease. Gallstone is seen in gallbladder on axial image 103. There is large ventral wall hernia containing fat and small mesenteric vessels near level of umbilicu s redemonstrated. Sigmoid colonic diverticulosis is seen without CT evidence for acute diverticulitis. There is low dense nodular thickening to both adrenal glands favoring benign hyperplasia. There is new infrarenal IVC filter. Uterus is surgically absent. Remnant right ovary is slightly larger than left ovary on axial image [address] This could be correlated with follow-up pelvic ultrasound if desired. Bladder is poorly distended and thus suboptimally evaluated. Scattered pelvic phleboliths are seen. There is probable osteoma left frontal sinus level on axial image 8. IMPRESSION: No suspicious hypermetabolic uptake is seen to suggest metastatic malignancy.
== END | disposition home or self-care (01) ==
LOC: RADPETMAIN 09:32
PROVIDERS: ATTEND Internal Medicine Hematology & Oncology
DX: C17.0 Malignant neoplasm of duodenum (principal)
CPT/HCPCS: 78815; A9552

== ENCOUNTER 2017-10-17 10:56 | Inpatient (IN) | payer MEDICARE, BC ==
[2017-10-17] MEDS ORDERED: SODIUM CHLORIDE 0.9% 500 ML IV ONE (11:38)
[2017-10-17] MEDS: SODIUM CHLORIDE 0.9% 1,000 ML IV SCH (11:44)
[2017-10-17 11:52] LABS: Anisocytosis Slight; Basophils % (A) 1 %; Eosinophils # (A) 0.1 k/uL (0-0.7); Eosinophils % (A) 1 %; HCT 27.9 % (34.0-46.0); HGB 8.8 gm/dL (11.4-16.0); Lymphocytes # (A) 0.3 k/uL (1.0-4.8); Lymphocytes % (A) 7 %; MCH 31.4 pg (25.0-35.0); MCHC 31.6 g/dL (31.0-37.0); MCV 99.2 fL (80.0-100.0); Macrocytosis Moderate; Mean Platelet Volume 7.6; Monocytes # (A) 0.4 k/uL (0-1.0); Monocytes % (A) 9 %; Neutrophils # (A) 3.9 k/uL (1.3-7.7); Neutrophils % (A) 81 %; Platelet Count 131 k/uL (150-450); RBC 2.82 m/uL (3.80-5.40); RDW 19.4 % (11.5-15.5); WBC 4.8 k/uL (3.8-10.6)
--- NOTE | 2017-10-17 12:05 | XR ---
EXAMINATION TYPE: XR chest 2V DATE OF EXAM: 10/17/2017 COMPARISON: 04/25/2017 HISTORY: Weakness TECHNIQUE: Frontal and lateral views of the chest are obtained. FINDINGS: There is no focal air space opacity, pleural effusion, or pneumothorax seen. Right-sided Mediport terminates in the superior vena cava, new from the prior. There is redemonstration of cardio megaly. The osseous structures are intact. There is partial visualization of an inferior vena cava filter. IMPRESSION: No acute cardiopulmonary process. New appropriately placed placed right-sided Mediport.
[2017-10-17 12:08] LABS: Albumin 3.2 g/dL (3.5-5.0); Calcium 9.7 mg/dL (8.4-10.2); Phosphorus 3.5 mg/dL (2.5-4.5); Potassium 3.7 mmol/L (3.5-5.1); Total Bilirubin 0.7 mg/dL (0.2-1.3); Total Protein 5.8 g/dL (6.3-8.2)
[2017-10-17 12:29] LABS: Appearance,Urine Clear (Clear); Bacteria,Urine Rare /hpf; Bilirubin,Urine Negative (Negative); Blood,Urine Negative (Negative); Color,Urine Yellow; Glucose,Urine (UA) Negative (Negative); Hyaline Casts,Urine 6 /lpf (0-2); Ketones,Urine Negative (Negative); Leukocyte Esterase,Urine Moderate (Negative); Mucus,Urine Rare /hpf; Nitrite,Urine Negative (Negative); Protein,Urine Negative (Negative); RBC,Urine 2 /hpf (0-5); Specific Gravity,Urine 1.005 (1.001-1.035); Squamous Epithelial Cell,Urine 1 /hpf (0-4); Urobilinogen,Urine <2.0 mg/dL (<2.0); WBC,Urine 9 /hpf (0-5)
[2017-10-17] MEDS ORDERED: MAGNESIUM SULFATE-D5W PMX 1 GM in DEXTROSE/WATER 1 100ML.BAG IVPB ONE ×2 (12:35→13:11)
--- NOTE | 2017-10-17 12:56 | ED ---
General Adult HPI - General Chief complaint: Recheck/Abnormal Lab/Rx Stated complaint: Dehydration Time Seen by Provider: 10/17/17 11:27 Source: patient, RN notes reviewed Mode of arrival: wheelchair Limitations: no limitations - History of Present Illness Initial comments: This a 72-year-old female presents emergency with chief complaint of dehydration. Patient was sent in by her live ammunition inspector for abnormal lab work and dehydration. Patient states she has a point yesterday first appointment with live ammunition inspector. She was called today and was advised to come in for IV hydration. Patient states that she does not have a long history of renal problems. Patient states that this started after she removed see chemotherapy. Patient states she had several rounds of chemotherapy for a tumor on her colon. Patient states that she is now scheduled for radiation. Patient states that she does feel run down states that she does not eat much because she has no appetite. She denies fever, chills. Patient states that her oncologist is Dr. Boyd and her live ammunition inspector is Dr. Rubio patient states that she normally has low potassium but states that she does take a supplement most she does have an episode of emesis after this makes her nauseated. - Related Data Home Medications Medication Instructions Recorded Confirmed Atorvastatin [Lipitor] 40 mg PO DAILY 03/10/16 10/17/17 Cholecalciferol [Vitamin D3] 2,000 unit PO DAILY 03/10/16 10/17/17 Levothyroxine Sodium [Synthroid] 100 mcg PO DAILY 03/10/16 10/17/17 amLODIPine [Norvasc] 5 mg PO DAILY 03/10/16 10/17/17 Ferrous Sulfate [Iron (65 MG 325 mg PO TID 04/13/17 10/17/17 Elemental)] Potassium Chloride ER [K-Dur 20] 20 meq PO DAILY 10/17/17 10/17/17 Allergies Allergy/AdvReac Type Severity Reaction Status Date / Time No Known Allergies Allergy Verified 10/17/17 11:54 Review of Systems ROS Statement: Those systems with pertinent positive or pertinent negative responses have been documented in the HPI. ROS Other: All systems not noted in ROS Statement are negative. Past Medical History Past Medical History: Cancer, Hyperlipidemia, Hypertension, Pulmonary Embolus ( PE), Thyroid Disorder Additional Past Medical History / Comment(s): Chronic anemia, antral gastritis and colonic polyps based on the most recent EGD and colonoscopy done at [facility] 02/17/2017, positive H. pylori, hypertension, hyperlipidemia , hypothyroidism colon cancer starts radation on oct History of Any Multi-Drug Resistant Organisms: None Reported Past Surgical History: Breast Surgery, Hysterectomy Additional Past Surgical History / Comment(s): greenfeild filter Past Psychological History: No Psychological Hx Reported Smoking Status: Never smoker Past Alcohol Use History: None Reported Past Drug Use History: None Reported General Exam Limitations: no limitations General appearance: alert, in no apparent distress Head exam: Present: atraumatic, normocephalic, normal inspection Neck exam: Present: normal inspection. Absent: tenderness, meningismus, lymphadenopathy Respiratory exam: Present: normal lung sounds bilaterally. Absent: respiratory distress, wheezes, rales, rhonchi, stridor Cardiovascular Exam: Present: regular rate, normal rhythm, normal heart sounds. Absent: systolic murmur, diastolic murmur, rubs, gallop, clicks GI/Abdominal exam: Present: soft, normal bowel sounds. Absent: distended, tenderness, guarding, rebound, rigid Neurological exam: Present: alert, oriented X3, CN II-XII intact Skin exam: Present: warm, dry, intact, normal color. Absent: rash Course Vital Signs 10/17/17 10/17/17 11:02 12:44 Temperature 97.9 F Pulse Rate 59 L 52 L Respiratory 18 18 Rate Blood Pressure 139/75 126/66 O2 Sat by Pulse 99 100 Oximetry Medical Decision Making - Lab Data Result diagrams: 10/17/17 11:40 10/17/17 11:40 Lab Results 10/17/17 10/17/17 10/17/17 Range/Units 11:40 11:40 12:16 WBC 4.8 (3.8-10.6) k/uL RBC 2.82 L (3.80-5.40) m/uL Hgb 8.8 L (11.4-16.0) gm/dL Hct 27.9 L (34.0-46.0) % MCV 99.2 (80.0-100.0) fL MCH 31.4 (25.0-35.0) pg MCHC 31.6 (31.0-37.0) g/dL RDW 19.4 H (11.5-15.5) % Plt Count 131 L (150-450) k/uL Neutrophils % 81 % Lymphocytes % 7 % Monocytes % 9 % Eosinophils % 1 % Basophils % 1 % Neutrophils # 3.9 (1.3-7.7) k/uL Lymphocytes # 0.3 L (1.0-4.8) k/uL Monocytes # 0.4 (0-1.0) k/uL Eosinophils # 0.1 (0-0.7) k/uL Basophils # 0.0 (0-0.2) k/uL Anisocytosis Slight Macrocytosis Moderate Sodium 140 (137-145) mmol/L Potassium 3.7 (3.5-5.1) mmol/L Chloride 101 (98-107) mmol/L Carbon Dioxide 25 (22-30) mmol/L Anion Gap 14 mmol/L BUN 26 H (7-17) mg/dL Creatinine 3.97 H (0.52-1.04) mg/dL Est GFR (MDRD) Af Amer 13 (>60 ml/min/1.73 sqM) Est GFR (MDRD) Non-Af 11 (>60 ml/min/1.73 sqM) Glucose 95 (74-99) mg/dL Calcium 9.7 (8.4-10.2) mg/dL Phosphorus 3.5 (2.5-4.5) mg/dL Magnesium 1.0 L* (1.6-2.3) mg/dL Total Bilirubin 0.7 (0.2-1.3) mg/dL AST 18 (14-36) U/L ALT 20 (9-52) U/L Alkaline Phosphatase 88 (38-126) U/L Total Protein 5.8 L (6.3-8.2) g/dL Albumin 3.2 L (3.5-5.0) g/dL Lipase 128 (23-300) U/L Urine Color Yellow Urine Appearance Clear (Clear) Urine pH 7.0 (5.0-8.0) Ur Specific [place] 1.005 (1.001-1.035) Urine Protein Negative (Negative) Urine Glucose (UA) Negative (Negative) Urine Ketones Negative (Negative) Urine Blood Negative (Negative) Urine Nitrite Negative (Negative) Urine Bilirubin Negative (Negative) Urine Urobilinogen <2.0 (<2.0) mg/dL Ur Leukocyte Esterase Moderate H (Negative) Urine RBC 2 (0-5) /hpf Urine WBC 9 H (0-5) /hpf Ur Squamous Epith Cells 1 (0-4) /hpf Urine Bacteria Rare H (None) /hpf Hyaline Casts 6 H (0-2) /lpf Urine Mucus Rare H (None) /hpf Disposition Clinical Impression: Dehydration, Hypomagnesemia, Renal failure Disposition: ADMITTED IP TO THIS HOSP Condition: Fair Referrals: Sebastian Miguel MD [Primary Care Provider] - 1-2 days
[2017-10-17] MEDS ORDERED: NALOXONE 0.4 MG/ML 1 ML VIAL IV PRN (13:10)
[2017-10-17] MEDS: FERROUS SULFATE 325 MG TAB PO SCH (21:15)
[2017-10-17] MEDS: MAGNESIUM OXIDE 400 MG TAB PO SCH (21:15)
[2017-10-18] MEDS: SODIUM CHLORIDE 0.9% 1,000 ML IV SCH ×4 (05:43→20:24)
[2017-10-18] MEDS: LEVOTHYROXINE 100 MCG TAB PO SCH (05:45)
[2017-10-18] MEDS: FERROUS SULFATE 325 MG TAB PO SCH ×3 (08:04→20:54)
[2017-10-18] MEDS: POTASSIUM CHLORIDE ER 20 MEQ TAB.ER PO SCH (08:04)
[2017-10-18] MEDS: amLODIPine 5 MG TAB PO SCH (08:04)
--- NOTE | 2017-10-18 12:11 | P.NPCON ---
History of Present Illness - Reason for Consult acute renal failure - History of Present Illness Reason for consultation: Acute kidney injury History of present illness: Patient is a 72-year-old female seen in renal consultation for acute kidney injury. Patient's creatinine in July 2017 was near 1 and was up to 1.92 in early September 2017. I saw her in the office on October 16 and also checked her renal function and creatinine was up to 3.8 and I advised her to go to the hospital for IV hydration. Patient was diagnosed with duodenal adenocarcinoma and has completed 6 cycles of FOLFOX therapy. Her last dose was in the beginning of September 2017. She scheduled to start 28 treatments of radiation on 10/24/2017. Patient states that oral intake since chemotherapy has been quite poor. She doesn't have much appetite. Denies edema. She was also taking a diuretic which I had stopped as an outpatient. Denies any vomiting or diarrhea. Denies chest pain or shortness of breath. Chest x-ray revealed no evidence of fluid overload. Denies use of NSAIDs. Hemodynamically stable. No active complaints at this time. Vital signs are stable. General: The patient appeared well nourished and normally developed. HEENT: Head exam is unremarkable. Neck is without jugular venous distension. LUNGS: Lungs are clear to auscultation and percussion. Breath sounds decreased. HEART: Rate and Rhythm are regular. First and second heart sounds normal. No murmurs, rubs or gallops. ABDOMEN: Abdominal exam reveals normal bowel sounds. Non-tender and non- distended. No evidence of peritonitis. EXTREMITITES: No clubbing, cyanosis, or edema. Past Medical History Past Medical History: Cancer, Hyperlipidemia, Hypertension, Pulmonary Embolus ( PE), Syncope, Thyroid Disorder Additional Past Medical History / Comment(s): Chronic anemia, antral gastritis and colonic polyps based on the most recent EGD and colonoscopy done at [facility] 02/17/2017, positive H. pylori, hypertension, hyperlipidemia , hypothyroidism pulmonary embolism, pleural effusions,uti colon cancer starts radation on oct, completed 6 chemo sesions sep 13 2017. History of Any Multi-Drug Resistant Organisms: None Reported Past Surgical History: Hysterectomy, Tonsillectomy Additional Past Surgical History / Comment(s): ivc filter, rt mediport, partial hysterectomy, breast bx-neg Past Anesthesia/Blood Transfusion Reactions: No Reported Reaction Additional Past Anesthesia/Blood Transfusion Reaction / Comment(s): blood transfuison-no reaction Smoking Status: Never smoker - Past Family History Mother Family Medical History: No Reported History Additional Family Medical History / Comment(s): " from old age" Father Family Medical History: CVA/TIA Additional Family Medical History / Comment(s): emphysema Medications and Allergies Home Medications Medication Instructions Recorded Confirmed Type Atorvastatin [Lipitor] 40 mg PO DAILY 03/10/16 10/17/17 History Cholecalciferol [Vitamin D3] 2,000 unit PO DAILY 03/10/16 10/17/17 History Levothyroxine Sodium [Synthroid] 100 mcg PO DAILY 03/10/16 10/17/17 History amLODIPine [Norvasc] 5 mg PO DAILY 03/10/16 10/17/17 History Ferrous Sulfate [Iron (65 MG 325 mg PO TID 04/13/17 10/17/17 History Elemental)] Potassium Chloride ER [K-Dur 20] 20 meq PO DAILY 10/17/17 10/17/17 History Allergies Allergy/AdvReac Type Severity Reaction Status Date / Time No Known Allergies Allergy Verified 10/17/17 11:54 Physical Exam Vitals: Vital Signs Temp Pulse Pulse Resp BP BP Pulse Ox 10/18/17 07:00 98.1 F 81 16 171/77 95 10/17/17 23:00 97.8 F 56 L 16 130/60 96 10/17/17 16:00 55 L 18 10/17/17 15:35 97.6 F 55 L 18 133/62 99 10/17/17 13:47 52 L 18 127/64 99 10/17/17 12:44 52 L 18 126/66 100 Intake and Output 10/17/17 10/18/17 10/18/17 22:59 06:59 14:59 Intake Total 600 540 Balance 600 540 Intake: Intake, IV Titration 600 Amount Sodium Chloride 0.9% 1, 600 000 ml @ 75 mls/hr IV . [id number] [facility] Rx#:[id number] Oral 540 Other: Voiding Method Toilet # Voids 2 3 Weight 75.296 kg Results - Lab Results Most recent lab results Calcium 9.7 mg/dL (8.4-10.2) 10/17/17 11:40 Phosphorus 3.5 mg/dL (2.5-4.5) 10/17/17 11:40 Magnesium 1.0 mg/dL (1.6-2.3) L* 10/17/17 11:40 10/17/17 11:40 10/17/17 11:40 Assessment and Plan Plan: Assessment: #1. Nonoliguric acute kidney injury mostly prerenal from poor oral intake and further worsened from diuretics she was taking leading to hypovolemia. Her baseline creatinine is 1 and up to 3.97 yesterday. Urinalysis is quite benign. #2. Duodenal carcinoma status post 6 doses of FOLFOX completed in September 2017. Scheduled to begin radiation therapy on 10/24/2017. #3. Hypomagnesemia from poor nutritional status and diuretics. #4. Anemia possibly related to underlying malignancy. Rule out iron deficiency. #5. Hypokalemia from poor oral intake and diuretics. Hypomagnesemia also contributing factor. Maintain on potassium supplementation. #6. Benign hypertension. Currently controlled. Plan: I will increase rate of normal saline to 100 mL an hour. Check labs including magnesium level today and again tomorrow. Check iron studies. Avoid nephrotoxic agents and hypotensive episodes. Encourage oral intake. Thank you for the consultation. I will continue to follow the patient with you during her hospital stay.
[2017-10-18 12:42] LABS: Calcium 9.3 mg/dL (8.4-10.2); Magnesium 1.6 mg/dL (1.6-2.3); Phosphorus 3.4 mg/dL (2.5-4.5); Potassium 4.1 mmol/L (3.5-5.1)
[2017-10-18] MEDS: MAGNESIUM OXIDE 400 MG TAB PO SCH (13:10)
[2017-10-18 14:09] VITALS: BMI 32.4
[2017-10-18 19:03] LABS: Iron Saturation 22.53 (12.00-45.00)
[2017-10-18] MEDS: ONDANSETRON 4 MG/2 ML VIAL IVP PRN (19:37)
--- NOTE | 2017-10-18 20:13 | HP ---
HISTORY AND PHYSICAL CHIEF COMPLAINT: Dehydration, renal failure, hypomagnesemia, dehydration and cancer of the duodenum. HISTORY OF PRESENT ILLNESS: This is another admission for this 72-year-old white female. She was found to have an elevated BUN and creatinine and she has been anorexic and had some nausea. She is admitted for exacerbation of her renal failure. She has been getting chemotherapy for duodenal carcinoma and doing fairly well. She has had no bleeding. REVIEW OF SYSTEMS: She has had no headaches, neurologic problems, chest pain, shortness of breath, abdominal pain, vomiting, nausea, hematemesis, melena, hematochezia, jaundice, hematuria, frequency, urgency, dysuria, arthralgias, diabetes, etc. Past medical history, family history, and personal and social histories are unchanged. ALLERGIES: 1. YAMIL INHIBITORS. 2. PROCARDIA. CURRENT MEDICATIONS: 1. Iron. 2. Compazine 10 mg q.6 p.r.n. 3. Zofran 8 mg every 4 hours p.r.n. 4. Amlodipine 5 mg once a day. 5. Chlorthalidone 25 mg once a day. 6. Atorvastatin 40 mg at bedtime. 7. Losartan 100 mg once a day. 8. Vitamin D3. Remainder of her history is unremarkable. PHYSICAL EXAMINATION: Blood pressure is 100/45 with a pulse of 63 and respirations of 20 and she is afebrile. In general she appears to be slightly pale and she has been losing weight. Head, ears, eyes, nose, mouth and throat are normal. Neck veins are not distended. The chest is clear. Cardiac exam is normal. The abdomen is soft, nontender and there are no masses or visceromegaly. Bowel sounds are present. The extremities are normal. Neurologically she is intact. IMPRESSION: 1. Dehydration. 2. Prerenal azotemia. 3. Dehydration. 4. Carcinoma of the duodenum. 5. Hypertension. PLAN: 1. Bed rest. 2. IV fluids. 3. Rehydrate. 4. Consult with Renal and Oncology. MMODL / IJN: [id number] /
[2017-10-18] MEDS: METOCLOPRAMIDE 10 MG TAB PO SCH (20:24)
--- NOTE | 2017-10-18 20:28 | PN ---
PROGRESS NOTE DATE OF SERVICE: 10/18/2017 CHIEF COMPLAINT: Dehydration. HISTORY OF PRESENT ILLNESS: This lady is about the same. She is not eating. She has a poor appetite. She feels nauseated. PHYSICAL EXAMINATION: Abdomen is soft. There are no masses. Vital signs are normal. Her chest is fairly clear. IMPRESSION: 1. Dehydration. 2. Renal failure. 3. Anorexia. 4. Nausea and vomiting. 5. Hypomagnesemia. PLAN: 1. Continue with IV fluids and antiemetics. 2. Continue to monitor labs. MMODL / IJN: [id number] /
[2017-10-19] MEDS: SODIUM CHLORIDE 0.9% 1,000 ML IV SCH ×2 (06:02→13:24)
[2017-10-19] MEDS: LEVOTHYROXINE 100 MCG TAB PO SCH (06:02)
[2017-10-19 07:41] LABS: Calcium 8.9 mg/dL (8.4-10.2); Magnesium 1.4 mg/dL (1.6-2.3); Potassium 3.5 mmol/L (3.5-5.1)
[2017-10-19] MEDS: ONDANSETRON 4 MG/2 ML VIAL IVP PRN (08:07)
[2017-10-19] MEDS: METOCLOPRAMIDE 10 MG TAB PO SCH ×4 (08:27→21:46)
[2017-10-19] MEDS: POTASSIUM CHLORIDE ER 20 MEQ TAB.ER PO SCH (09:23)
[2017-10-19] MEDS: amLODIPine 5 MG TAB PO SCH (09:23)
[2017-10-19] MEDS: FERROUS SULFATE 325 MG TAB PO SCH (09:23)
--- NOTE | 2017-10-19 11:57 | P.PN ---
Subjective Patient is seen in follow-up for acute kidney injury. Her baseline creatinine is near 1 and was elevated at 3.97 on admission. She is currently maintained on normal saline at 100 mL an hour and creatinine is under 2.5 today. Patient' s noted to have duodenal adenocarcinoma and has undergone 6 treatments of FOLFOX therapy. Her appetite is quite poor. Admits to good urine output. Does have loose bowel movements. Hemodynamically stable. Vital signs are stable. General: The patient appeared well nourished and normally developed. HEENT: Head exam is unremarkable. Neck is without jugular venous distension. LUNGS: Lungs are clear to auscultation and percussion. Breath sounds decreased. HEART: Rate and Rhythm are regular. First and second heart sounds normal. No murmurs, rubs or gallops. ABDOMEN: Abdominal exam reveals normal bowel sounds. Non-tender and non- distended. No evidence of peritonitis. EXTREMITITES: No clubbing, cyanosis, or edema. Objective - Vital Signs Vital signs: Vital Signs Temp 98.1 F 10/19/17 08:17 Pulse 55 L 10/19/17 09:48 Resp 18 10/19/17 09:48 BP 133/82 10/19/17 08:17 Pulse Ox 98 10/19/17 08:17 Intake & Output 10/18/17 10/19/17 10/19/17 18:59 06:59 18:59 Intake Total 780 1040 35 Balance 780 1040 35 Weight 75.296 kg Intake: Intake, IV Titration 800 Amount Sodium Chloride 0.9% 1, 800 000 ml @ 100 mls/hr IV . Q10H [facility] Rx#:[id number] Oral 780 240 35 Other: Voiding Method Toilet Toilet Toilet # Voids 5 3 1 # Bowel Movements 1 - Labs CBC & Chem 7: 10/17/17 11:40 10/19/17 06:36 Labs: Abnormal Lab Results - Last 24 Hours (Table) 10/18/17 10/18/17 10/19/17 Range/Units 12:03 12:03 06:36 Chloride 108 H (98-107) mmol/L BUN 23 H 19 H (7-17) mg/dL Creatinine 3.19 H 2.58 H (0.52-1.04) mg/dL Glucose 70 L (74-99) mg/dL Magnesium 1.4 L (1.6-2.3) mg/dL Ferritin 304.3 H (10.0-291.0) ng/mL Assessment and Plan Plan: Assessment: #1. Nonoliguric acute kidney injury mostly prerenal from poor oral intake and further worsened from diuretics she was taking leading to hypovolemia. Her baseline creatinine is 1 and up to 3.97 on admission - down to 2.58 today. Urinalysis is quite benign. #2. Duodenal carcinoma status post 6 doses of FOLFOX completed in September 2017. Scheduled to begin radiation therapy on 10/24/2017. #3. Hypomagnesemia from poor nutritional status and diuretics. Improved post replacement. #4. Anemia possibly related to underlying malignancy. Mild iron deficiency noted as well. #5. Hypokalemia from poor oral intake and diuretics. Hypomagnesemia also contributing factor. Maintain on potassium supplementation. #6. Benign hypertension. Currently controlled. Plan: Continue normal saline at 100 mL an hour. Replace magnesium. 2 g IV today. Ferrlecit 125 mg IV today. First dose today. Avoid nephrotoxic agents and hypotensive episodes. Encourage oral intake. Will likely benefit from normal saline infusion on a weekly basis as an outpatient.
[2017-10-19] MEDS: MAGNESIUM OXIDE 400 MG TAB PO SCH (12:00)
[2017-10-19] MEDS: SODIUM FERRIC GLUCONAT-SUCROSE 125 MG in SODIUM CHLORIDE 0.9% 100 ML IVPB SCH (12:57)
[2017-10-19] MEDS: MAGNESIUM SULFATE-D5W PMX 1 GM in DEXTROSE/WATER 1 100ML.BAG IVPB SCH ×2 (15:08→16:15)
--- NOTE | 2017-10-19 19:44 | PN ---
PROGRESS NOTE DATE OF SERVICE: 10/19/2017 CHIEF COMPLAINT: Renal failure and carcinoma of the duodenum. HISTORY OF PRESENT ILLNESS: This lady is feeling quite weak. Renal function has improved slightly. She has had no nausea. PHYSICAL EXAMINATION: She is pale. Chest is clear. Cardiac exam is normal. Abdomen is soft, nontender. IMPRESSION: 1. Progressive renal failure. 2. Carcinoma of the duodenum. PLAN: Continue with IV fluids and try to increase activity to maintain strength and hopefully get her home soon. MMODL / IJN: [id number] /
[2017-10-20] MEDS: SODIUM CHLORIDE 0.9% 1,000 ML IV SCH ×3 (01:04→20:20)
[2017-10-20] MEDS: LEVOTHYROXINE 100 MCG TAB PO SCH (06:07)
[2017-10-20 08:38] LABS: Calcium 9.1 mg/dL (8.4-10.2); Magnesium 1.7 mg/dL (1.6-2.3); Potassium 3.5 mmol/L (3.5-5.1)
[2017-10-20] MEDS: amLODIPine 5 MG TAB PO SCH (08:42)
[2017-10-20] MEDS: POTASSIUM CHLORIDE ER 20 MEQ TAB.ER PO SCH (08:42)
[2017-10-20] MEDS: METOCLOPRAMIDE 10 MG TAB PO SCH ×4 (08:51→20:45)
[2017-10-20] MEDS: SODIUM FERRIC GLUCONAT-SUCROSE 125 MG in SODIUM CHLORIDE 0.9% 100 ML IVPB SCH (09:46)
[2017-10-20] MEDS: MAGNESIUM OXIDE 400 MG TAB PO SCH (11:30)
--- NOTE | 2017-10-20 14:32 | PN ---
PROGRESS NOTE Patient is seen for followup for acute kidney injury. She was admitted to the hospital with a creatinine of 3.9 mg/dL. Currently, patient is maintained on normal saline. Her renal function has improved. Serum creatinine is down to 1.89 mg/dL. Patient was also hypomagnesemic, which is being replaced. She denies any significant complaints. PHYSICAL EXAMINATION: On examination, blood pressure is 138/86, heart rate 63 per minute. She is afebrile. EXAMINATION OF THE HEART: S1, S2. EXAMINATION OF THE LUNGS: Bilateral breath sounds are heard. Abdomen is soft, nontender. Examination of the lower extremities shows no evidence of edema. SCARF GLUER exam is grossly intact. LABS: Labs reveal a serum creatinine 1.89, sodium 140, potassium 3.5, serum magnesium 1.7. ASSESSMENT: 1. Acute kidney injury, prerenal, currently significantly improved. 2. 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 3. Hypomagnesemia, status post replacement. Repeat magnesium supplementation again today. 4. Anemia, multifactorial. 5. Hypokalemia, status post replacement. 6. Benign hypertension, currently controlled. PLAN: Repeat magnesium supplementation. Continue IV fluids. Encourage increased oral intake and maintain outpatient hydration with saline about 1 L twice a week. MMODL / IJN: [id number] /
--- NOTE | 2017-10-20 18:46 | P.CONS ---
History of Present Illness - Reason for Consult Consult date: 10/20/17 dehydration, intractable nausea and vomiting . duodenal cancer - History of Present Illness the patient is a 72-year-old white female, initially seen in 05/04. She had presented with progressive anemia over the past 3-4 months, with workup consistent with iron deficiency. She had an EGD and colonoscopy at [facility] that was negative other than H pylori gastritis. She was started on treatment for but continued to be anemic despite oral iron supplementation. She was a actually admitted on 04/13/17, as she became quite dizzy and fell resulting in fracture of her left ankle. Ankle fracture was managed conservatively. On admission, hemoglobin was in the low 7 range. Patient was transfused and had a gI workup, which subsequently which showed bleeding in the duodenum/proximal jejunum. She had an enteroscopy with Dr. Guidry on 04/19/17 which now showed an irregular mass in the duodenal sweep. Biopsy was positive for adenocarcinoma. Computed tomography scan of the chest abdomen and pelvis on 04/22/17. This showed no definite evidence of metastatic disease. There was however a 2.9 cm right adnexal low density lesion, with malignancy not excluded. The patient subsequently developed a pulmonary embolus. She was transferred to [facility]. She she had an IVC filter placed. Her hemoglobin was monitored, and she was subsequently started back on anticoagulation. She was evaluated by GI surgery and was not felt to be a surgical candidate at that time. She was discharged to [facility] where she underwent subacute rehab. She was seen for her office visit on 05/19/17. She remained very weak. Thus rehab was continued. Post discharge, she was started on FOLFOX in a neoadjuvannt fashion, as recommended hy [facility], on 07/04/17. She is s/p 6 cycles. Dose was reduced after cycle 1 due to side effects. Neulasta was added with cycle 2. She completed 6 cycles on 09/15/17. repeat imaging after completion of chemotherapy did not show any obvious disease. She was then referred to radiation and was supposed to start that on . The patient has continued to have persistent nausea and vomiting, which has been getting worse. This seems to be aggravated by eating. As a result oral intake has been progressively reduced. She came into the hospital due to progressive weakness, persistent nausea and vomiting, as well as dizziness and lightheadedness. labs showed evidence of acute kidney injury that was felt to be due to dehydration. She was therefore admitted for further management. Consult was placed for further evaluation and recommendations Review of Systems Constitutional: Reports fatigue, Reports poor appetite, Reports weakness, Reports weight loss Eyes: denies blurred vision, denies pain Ears: deny: decreased hearing, ear discharge, earache, tinnitus Ears, nose, mouth and throat: Denies headache, Denies sore throat Cardiovascular: Reports dyspnea on exertion, Reports lightheadedness, Reports palpitations Respiratory: Reports dyspnea Gastrointestinal: Reports as per HPI, Reports nausea, Reports vomiting Genitourinary: Denies dysuria, Denies hematuria Menstruation: Reports postmenopausal Musculoskeletal: Reports muscle weakness Integumentary: Denies pruritus, Denies rash Neurological: Reports weakness, Denies numbness Psychiatric: Denies anxiety, Denies depression Endocrine: Reports fatigue, Reports weight change Hematologic/Lymphatic: Reports as per HPI Past Medical History Past Medical History: Cancer, Hyperlipidemia, Hypertension, Pulmonary Embolus ( PE), Syncope, Thyroid Disorder Additional Past Medical History / Comment(s): Chronic anemia, antral gastritis and colonic polyps based on the most recent EGD and colonoscopy done at [facility] 02/17/2017, positive H. pylori, hypertension, hyperlipidemia , hypothyroidism pulmonary embolism, pleural effusions,uti colon cancer starts radation on oct, completed 6 chemo sesions sep 13 2017. History of Any Multi-Drug Resistant Organisms: None Reported Past Surgical History: Hysterectomy, Tonsillectomy Additional Past Surgical History / Comment(s): ivc filter, rt mediport, partial hysterectomy, breast bx-neg Past Anesthesia/Blood Transfusion Reactions: No Reported Reaction Additional Past Anesthesia/Blood Transfusion Reaction / Comm: blood transfuison- no reaction Smoking Status: Never smoker - Past Family History Mother Family Medical History: No Reported History Additional Family Medical History / Comment(s): " from old age" Father Family Medical History: CVA/TIA Additional Family Medical History / Comment(s): emphysema Medications and Allergies Home Medications Medication Instructions Recorded Confirmed Type Atorvastatin [Lipitor] 40 mg PO DAILY 03/10/16 10/17/17 History Cholecalciferol [Vitamin D3] 2,000 unit PO DAILY 03/10/16 10/17/17 History Levothyroxine Sodium [Synthroid] 100 mcg PO DAILY 03/10/16 10/17/17 History amLODIPine [Norvasc] 5 mg PO DAILY 03/10/16 10/17/17 History Ferrous Sulfate [Iron (65 MG 325 mg PO TID 04/13/17 10/17/17 History Elemental)] Potassium Chloride ER [K-Dur 20] 20 meq PO DAILY 10/17/17 10/17/17 History Allergies Allergy/AdvReac Type Severity Reaction Status Date / Time No Known Allergies Allergy Verified 10/17/17 11:54 Physical Exam Vitals: Vital Signs Temp Pulse Resp BP Pulse Ox 10/20/17 16:00 64 20 10/20/17 15:57 64 20 10/20/17 15:00 97.9 F 63 16 148/76 96 10/20/17 08:00 63 19 10/20/17 07:22 19 10/20/17 07:18 97.8 F 63 18 138/86 98 10/19/17 23:00 98.8 F 53 L 16 106/65 98 Intake and Output 10/20/17 10/20/17 10/20/17 06:59 14:59 22:59 Intake Total 1390 2340 480 Balance 1390 2340 480 Intake: Intake, IV Titration 800 600 Amount Sodium Chloride 0.9% 1, 800 600 000 ml @ 100 mls/hr IV . Q10H [facility] Rx#:[id number] Oral 590 1740 480 Other: Voiding Method Toilet Toilet Toilet # Voids 3 4 1 # Bowel Movements 1 Weight 75.296 kg 75.296 kg Patient Weight 10/21/17 06:59 Weight 75.296 kg - Constitutional General appearance: no acute distress - EENT Eyes: EOMI, PERRLA ENT: hearing grossly normal, normal oropharynx - Neck Neck: no lymphadenopathy Thyroid: bilateral: normal size - Respiratory Respiratory: bilateral: CTA - Cardiovascular Rhythm: regular Heart sounds: normal: S1, S2 - Gastrointestinal General gastrointestinal: normal bowel sounds, soft - Integumentary Integumentary: normal - Neurologic Neurologic: CNII-XII intact, focal deficits - Musculoskeletal Musculoskeletal: generalized weakness, strength equal bilaterally - Psychiatric Psychiatric: A&O x's 3, appropriate affect Results CBC & Chem 7: 10/17/17 11:40 10/20/17 08:09 Labs: Abnormal Lab Results - Last 24 Hours (Table) 10/20/17 Range/Units 08:09 Creatinine 1.89 H (0.52-1.04) mg/dL Chest x-ray: report reviewed Assessment and Plan (1) Dehydration Narrative/Plan: the patient has continued to have nausea and vomiting now several weeks post chemotherapy. As a result oral intake has been progressively reduced leading to dehydration and acute kidney injury. Renal function is improved with hydration. However the patient continues to have ersistent nausea and vomiting. Continue IV hydration. Current Visit: Yes Status: Acute Code(s): E86.0 - DEHYDRATION SNOMED Code( s): 47309609 (2) Intractable nausea and vomiting Narrative/Plan: his appears to be the cause of her progressive dehydration and acute kidney injury. immediately clear, as the patient is now several weeks post chemotherapy. Given her prior history, I'm concerned about possible partial obstruction at the site of the tumor. Therefore gastroenterology will be consulted for repeat endoscopy. Current Visit: Yes Status: Acute Code(s): R11.2 - NAUSEA WITH VOMITING, UNSPECIFIED SNOMED Code(s): 533495182 (3) Duodenal adenocarcinoma Narrative/Plan: the patient was felt to have locally advanced disease without evidence of metastasis after evaluation at [facility]. According to their recommendation she was not felt to be primarily resectable and the recommended neoadjuvant chemotherapy and radiation followed by reevaluation. She has completed the planned cycles ofpreoperative chemotherapy and was supposed to proceed to radiation. We will proceed with the treatment plan, once acute condition has been resolved in a satisfactory manner Current Visit: No Status: Acute Priority: High Code(s): C17.0 - MALIGNANT NEOPLASM OF DUODENUM SNOMED Code(s): 043974803 (4) Anemia Narrative/Plan: the patient previously had anemia due to blood loss. However hemoglobin currently is similar to the level in the office on 10/03/17. At that time iron studies were repeated and were felt to be in normal range. Therefore the current anemia is felt to be due to chemotherapy effects and renal insufficiency. Hemoglobin is in a safe range. Continue to monitor Current Visit: No Status: Acute Code(s): D64.9 - ANEMIA, UNSPECIFIED SNOMED Code(s): 851963415
[2017-10-21] MEDS: SODIUM CHLORIDE 0.9% 1,000 ML IV SCH ×2 (05:52→16:30)
[2017-10-21] MEDS: LEVOTHYROXINE 100 MCG TAB PO SCH (06:05)
[2017-10-21] MEDS: POTASSIUM CHLORIDE ER 20 MEQ TAB.ER PO SCH (07:46)
[2017-10-21] MEDS: amLODIPine 5 MG TAB PO SCH (07:46)
[2017-10-21] MEDS: METOCLOPRAMIDE 10 MG TAB PO SCH ×3 (07:46→20:13)
--- NOTE | 2017-10-21 08:47 | CONS ---
CONSULTATION DATE OF CONSULTATION: 10/21/17 REASON FOR CONSULTATION: Nausea, vomiting. HISTORY OF PRESENT ILLNESS: This is a 72-year-old pleasant white female who was diagnosed with duodenal adenocarcinoma in March and April of 2017 when she presented with nausea, vomiting, and persistent anemia. She subsequently underwent chemotherapy which ended on September 15, 2017. Apparently, she did have a CT of the abdomen done after chemotherapy and there was no evidence of obvious disease. She is scheduled to start radiation therapy in 3 days. In the meantime, the patient was having some nausea, vomiting for the last 3 days which has been progressively getting worse associated with some abdominal bloating and hence she came into the emergency room and subsequently admitted to the hospital for further evaluation. This morning she states that her nausea and vomiting is better. In fact, she feels hungry and wants to eat breakfast. She denies any abdominal pain. Reports no rectal bleeding or melena. PAST MEDICAL HISTORY: Significant for duodenal adenocarcinoma diagnosed in April of 2017, status post 6 cycles of chemo as mentioned above, history of hypertension, hypothyroidism, hyperlipidemia, pulmonary embolism. PAST SURGICAL HISTORY: IVC filter placement, MediPort placement, hysterectomy, breast biopsy, EGD and colonoscopy. MEDICATIONS: At home include Lipitor, vitamin D3, Synthroid, Norvasc, iron, K-Dur. ALLERGIES: None. SOCIAL HISTORY: No smoking. No alcohol use. FAMILY HISTORY: Mom of old age. Father has a CVA and emphysema. REVIEW OF SYSTEMS: Cardiopulmonary: She denies any chest pain, shortness of breath. Genitourinary: She denies any dysuria, hematuria. Musculoskeletal unremarkable. Skin unremarkable. Endocrine: Unremarkable. Psychiatric: Unremarkable. Neurological: Unremarkable. Oncology as mentioned above. Hematology unremarkable. ENT/vision unremarkable. Constitutional: Weight loss of 3 pounds since her diagnosis of cancer in 2016. PHYSICAL EXAMINATION: She appears comfortable. No apparent distress. VITAL SIGNS: Stable. Blood pressure is 132/67, pulse rate 56, temperature 96.7. HEENT examination: Unremarkable. Conjunctivae pink. Sclerae anicteric. Oral cavity no lesions. Neck: No jugular venous distention or lymph node enlargement. Chest clear to auscultation. HEART: Regular rate and rhythm. ABDOMEN: Soft, nontender, nondistended. Liver and spleen not palpable. Bowel sounds are positive. No organomegaly. Extremities no pedal edema. Skin no rashes. Neuro: She is alert and oriented x3. No focal deficits. LAB: From 2 days ago, WBC 4.8, hemoglobin is 8.8, platelets are 131. BUN was 26 and creatinine 3.97. Today BUN is 59, creatinine 1.87. IMPRESSION: This is a lady who was diagnosed with duodenal adenocarcinoma in April of 2017, status post 6 cycles of chemotherapy that ended 3 weeks ago. She is scheduled to have radiation therapy next week. In the meantime, she presents to hospital with nausea, vomiting, and dehydration, but with antiemetics and PPI her symptoms are gradually improving. In fact, she did not have any episodes of emesis all day yesterday and this morning is feeling better. Last EGD was done in April of 2017, which revealed a duodenal ulcerated mass which was nonobstructing. Repeat imaging studies done 3 weeks ago did not show any recurrence of tumor. RECOMMENDATION: 1. Continue with PPI and antiemetics. 2. Advance diet as tolerated. 3. If the patient continues to have persistent symptoms, then our plan is to proceed with an upper endoscopy on Monday. 4. The plan was discussed with her. She is agreeable to it. Thank you for this consultation. Tolerated diet reasonably well. MMODL / IJN: [id number] /
[2017-10-21] MEDS: SODIUM FERRIC GLUCONAT-SUCROSE 125 MG in SODIUM CHLORIDE 0.9% 100 ML IVPB SCH (09:36)
--- NOTE | 2017-10-21 13:51 | P.PN ---
Subjective Progress Note Date: 10/21/17 Seen and examined for the follow-up of acute kidney injury. Doing better Objective - Vital Signs Vital signs: Vital Signs Temp 97.1 F L 10/21/17 07:00 Pulse 59 L 10/21/17 07:00 Resp 18 10/21/17 07:00 BP 108/51 10/21/17 07:00 Pulse Ox 99 10/21/17 07:00 Intake & Output 10/20/17 10/21/17 10/21/17 18:59 06:59 18:59 Intake Total 2820 200 Balance 2820 200 Weight 75.296 kg Intake: Intake, IV Titration 600 200 Amount Sodium Chloride 0.9% 1, 600 200 000 ml @ 100 mls/hr IV . Q10H [facility] Rx#:[id number] Oral 2220 Other: Voiding Method Toilet Toilet Toilet # Voids 1 2 # Bowel Movements 1 - Exam Lying in bed no acute distress S1-S2 heard Lungs clear No edema - Labs CBC & Chem 7: 10/17/17 11:40 10/20/17 08:09 Assessment and Plan Assessment: Impression: #1 acute kidney injury secondary to prerenal process improving. No new labs today #2 duodenal adenocarcinoma on chemotherapy #3 hypomagnesemia #4 anemia multifactorial #5 hypokalemia #6 hypertension Recommendations: #1 No new labs today, repeat labs in the morning and continue with IV fluids for now. #2 replace electrolytes
[2017-10-21] MEDS: MAGNESIUM OXIDE 400 MG TAB PO SCH (14:16)
[2017-10-21 15:43] VITALS: RESP 16
--- NOTE | 2017-10-21 16:59 | PN ---
PROGRESS NOTE She was seen on 10/21/2017. She has no abdominal pain. She has some nausea, no emesis. She is not short of breath. Her blood pressure is 118/75, respiratory rate of 16, pulse rate 60, temperature 98.2. HEENT is unremarkable. Chest reveals decreased breath sounds in the bases. Cardiovascular system reveals an S1, S2. Abdomen is soft. There is no edema. Sodium is 140, potassium 3.5, chloride 107, bicarb 23. IMPRESSION AT THIS TIME: 1. Duodenal adenocarcinoma. 2. Renal failure. 3. Gastrointestinal bleed. At this point in time, upper endoscopy is planned for Monday. Continue IV fluids and supportive care. Depending on how she does, we shall make further changes to her care. MMODL / IJN: [id number] /
[2017-10-22] MEDS: SODIUM CHLORIDE 0.9% 1,000 ML IV SCH ×2 (03:42→12:00)
[2017-10-22] MEDS: LEVOTHYROXINE 100 MCG TAB PO SCH (06:05)
[2017-10-22 07:36] LABS: Calcium 8.3 mg/dL (8.4-10.2)
[2017-10-22] MEDS: POTASSIUM CHLORIDE ER 20 MEQ TAB.ER PO SCH (07:41)
[2017-10-22] MEDS: METOCLOPRAMIDE 10 MG TAB PO SCH ×4 (07:42→20:34)
[2017-10-22] MEDS: amLODIPine 5 MG TAB PO SCH (07:42)
[2017-10-22 07:58] LABS: Potassium 2.9 mmol/L (3.5-5.1)
[2017-10-22] MEDS ORDERED: Potassium Replacement Protocol 1 EACH MISC MISCELLANE PRN ×2 (08:32→20:21)
[2017-10-22] MEDS ORDERED: Magnesium Replacement Protocol 1 EACH MISC MISCELLANE PRN (08:37)
[2017-10-22] MEDS ORDERED: POTASSIUM CHLORIDE 20 MEQ in WATER FOR INJECTION 1 100ML.BAG IVPB ONE ×3 (09:00→20:21)
[2017-10-22] MEDS: MAGNESIUM SULFATE-D5W PMX 1 GM in DEXTROSE/WATER 1 100ML.BAG IVPB SCH ×3 (09:30→11:38)
[2017-10-22] MEDS ORDERED: POTASSIUM CHLORIDE 10 MEQ in WATER FOR INJECTION 1 100ML.BAG IVPB ONE (11:00)
--- NOTE | 2017-10-22 11:48 | P.PN ---
Subjective Progress Note Date: 10/22/17 Seen and examined for the follow-up of acute kidney injury. Doing better. Objective - Vital Signs Vital signs: Vital Signs Temp 97.5 F L 10/22/17 05:40 Pulse 60 10/22/17 05:40 Resp 16 10/22/17 05:40 BP 110/56 10/22/17 05:40 Pulse Ox 95 10/22/17 05:40 Intake & Output 10/21/17 10/22/17 10/22/17 18:59 06:59 18:59 Other: Voiding Method Toilet Toilet Toilet # Voids 3 1 # Bowel Movements 1 - Exam No acute distress S1-S2 heard Lungs clear Edema - Labs CBC & Chem 7: 10/17/17 11:40 10/22/17 06:46 Labs: Abnormal Lab Results - Last 24 Hours (Table) 10/22/17 Range/Units 06:46 Potassium 2.9 L* (3.5-5.1) mmol/L Chloride 111 H (98-107) mmol/L Creatinine 1.15 H (0.52-1.04) mg/dL Calcium 8.3 L (8.4-10.2) mg/dL Magnesium 1.0 L* (1.6-2.3) mg/dL Assessment and Plan Assessment: Impression: #1 acute kidney injury secondary to prerenal process. Creatinine back to baseline #2 duodenal adenocarcinoma on chemotherapy #3 hypomagnesemia #4 anemia multifactorial #5 hypokalemia #6 hypertension Recommendations: #1 renal function back to baseline. Stop IV fluids #2 replace electrolytes
--- NOTE | 2017-10-22 11:58 | PN ---
PROGRESS NOTE DATE OF SERVICE: 10/22/17 REQUESTING PHYSICIAN: Dr. Miguel. The patient is a 72-year-old pleasant white female admitted to the hospital with nausea, vomiting, on and off for the last one month duration. She was diagnosed with duodenal adenocarcinoma in April of 2017, underwent chemotherapy and she is scheduled to start radiation therapy this coming week. Because of the nausea, and vomiting, we are consulted for EGD. The patient is feeling better today. She still had 1 episode of emesis yesterday. No abdominal pain. PHYSICAL EXAMINATION: Appears comfortable. No apparent distress. VITAL SIGNS: Stable. Blood pressure is 130/83, pulse rate 61, temperature 99. HEENT examination: Unremarkable. Conjunctivae pink. Sclerae anicteric. Oral cavity no lesions. Neck no jugular venous distention or lymph node enlargement. Chest clear to auscultation. HEART: Regular rate and rhythm. ABDOMEN: Soft. Bowel sounds are positive. No organomegaly. Extremities: No pedal edema. Skin no rashes. NEUROLOGIC: Alert and oriented x3. No focal deficits. LAB: WBC . Sodium 140, potassium 2.9, chloride 111, BUN 9, creatinine 1.15. IMPRESSION: 1. This is a lady with a history of a duodenal adenocarcinoma diagnosed in April of 2017 status post 6 cycles of chemo, which ended in August, now presents with intermittent nausea, vomiting for the last one month duration. 2. Acute renal failure which is gradually improving with IV hydration. RECOMMENDATIONS: We will proceed with an upper endoscopy tomorrow. I discussed with the patient, the risks, benefits and complications and she is agreeable to it. Thank you for this consultation. MMODL / IJN: [id number] /
[2017-10-22] MEDS: MAGNESIUM OXIDE 400 MG TAB PO SCH (12:36)
--- NOTE | 2017-10-22 17:10 | PN ---
PROGRESS NOTE DATE OF SERVICE: 10/22/17 She was seen on October 22, 2017. She has had no emesis. She has some nausea and some epigastric pain. She has no diarrhea. Her blood pressure is 110/56, respiratory rate of 16, pulse rate 60, temperature 97.5, O2 saturation on room air is 95%. HEENT is unremarkable. Chest is clear. Cardiovascular system is S1, S2. Abdomen is soft. There is no edema. Magnesium is 1, potassium 2.9, BUN 9, creatinine 1.15. IMPRESSION: At this time is: 1. Duodenal adenocarcinoma. 2. Acute renal failure. 3. Gastrointestinal bleed. 4. Hypokalemia. 5. Hypomagnesemia. Continue IV fluids. Replace potassium and magnesium per protocol. The patient is to undergo EGD tomorrow. MMODL / IJN: [id number] /
--- NOTE | 2017-10-22 22:12 | P.PN ---
Subjective Progress Note Date: 10/21/17 the patient had noted some improvement in appetite, but subsequently has continued to have nausea and vomiting. No obvious bleeding noted. She continues to be weak, but feels better with hydration Objective - Vital Signs Vital signs: Vital Signs Temp 99.0 F 10/22/17 21:18 Pulse 58 L 10/22/17 21:18 Resp 16 10/22/17 21:18 BP 124/66 10/22/17 21:18 Pulse Ox 95 10/22/17 21:18 Intake & Output 10/22/17 10/22/17 10/23/17 06:59 18:59 06:59 Other: Voiding Method Toilet Toilet # Voids 1 3 1 - Constitutional General appearance: Present: no acute distress - EENT Eyes: Present: PERRLA ENT: Present: hearing grossly normal, normal oropharynx - Respiratory Respiratory: bilateral: CTA - Cardiovascular Rhythm: regular Heart sounds: normal: S1, S2 - Gastrointestinal General gastrointestinal: Present: normal bowel sounds, soft - Integumentary Integumentary: Present: normal - Neurologic Neurologic: Present: CNII-XII intact - Musculoskeletal Musculoskeletal: Present: generalized weakness, strength equal bilaterally - Psychiatric Psychiatric: Present: A&O x's 3, appropriate affect - Labs CBC & Chem 7: 10/17/17 11:40 10/22/17 19:44 Labs: Abnormal Lab Results - Last 24 Hours (Table) 10/22/17 10/22/17 10/22/17 Range/Units 06:46 14:47 19:44 Potassium 2.9 L* 3.4 L 3.4 L (3.5-5.1) mmol/L Chloride 111 H (98-107) mmol/L Creatinine 1.15 H (0.52-1.04) mg/dL Calcium 8.3 L (8.4-10.2) mg/dL Magnesium 1.0 L* (1.6-2.3) mg/dL Assessment and Plan (1) Dehydration Narrative/Plan: oral intake still remains diminished. Patient however is improved clinically with hydration Current Visit: Yes Status: Acute Code(s): E86.0 - DEHYDRATION SNOMED Code( s): 64560198 (2) Intractable nausea and vomiting Narrative/Plan: the patient had some transient improvement, but still continues to have intermittent nausea and vomiting. Case was discussed with gastroenterology. Given the persistence of symptoms, it is recommended that the patient proceed with endoscopy. This will be scheduled by gastroenterology. Current Visit: Yes Status: Acute Code(s): R11.2 - NAUSEA WITH VOMITING, UNSPECIFIED SNOMED Code(s): 074456062 (3) Duodenal adenocarcinoma Narrative/Plan: PET scan done after completion of chemotherapy showed no obvious uptake. Await results of EGD to see status at the primary site. Current Visit: No Status: Acute Priority: High Code(s): C17.0 - MALIGNANT NEOPLASM OF DUODENUM SNOMED Code(s): 347355367 (4) Anemia Current Visit: No Status: Acute Code(s): D64.9 - ANEMIA, UNSPECIFIED SNOMED Code(s): 319693130
[2017-10-23] MEDS: LEVOTHYROXINE 100 MCG TAB PO SCH (06:09)
[2017-10-23 07:18] LABS: Calcium 9.2 mg/dL (8.4-10.2); Magnesium 1.6 mg/dL (1.6-2.3); Potassium 3.7 mmol/L (3.5-5.1)
[2017-10-23] MEDS: amLODIPine 5 MG TAB PO SCH (09:01)
[2017-10-23] MEDS: METOCLOPRAMIDE 10 MG TAB PO SCH ×2 (09:01→13:09)
[2017-10-23] MEDS: POTASSIUM CHLORIDE ER 20 MEQ TAB.ER PO SCH (09:01)
[2017-10-23] MEDS ORDERED: PROPOFOL 10 MG/ML 20 ML VIAL IV ONE (10:41)
[2017-10-23] MEDS ORDERED: IV FLUID CONTINUATION 1,000 ML IV ONE (10:41)
[2017-10-23] MEDS ORDERED: SODIUM CHLORIDE 0.9% 1,000 ML IV ONE (10:59)
--- NOTE | 2017-10-23 11:01 | P.PCN ---
Date of Procedure: 10/23/17 Procedure(s) Performed: BRIEF HISTORY: Patient is a 72-year-old, pleasant, white female, admitted to the hospital with intermittent nausea vomiting. 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 SHe finished 6 cycles of chemotherapy that ended in August 2017. She is scheduled to undergo outpatient therapy next week. In the meantime she was admitted hospital with intermittent episodes of nausea vomiting of several weeks duration and hence she is scheduled for an upper endoscopy to evaluate further. PROCEDURE PERFORMED: Esophagogastroduodenoscopy with biopsy. PREOPERATIVE DIAGNOSIS: Chronic intermittent nausea vomiting. IV sedation per anesthesia. PROCEDURE: After informed consent was obtained, the patient was brought into the endoscopy unit. IV sedation was administered by Anesthesia under continuous monitoring. Initially the Olympus GIF-140 video endoscope was inserted into the mouth. Esophagus intubated without any difficulty. It was gradually advanced into the stomach and duodenum and carefully examined. The bulb of the duodenum appeared normal. In the second portion of the duodenum at the site of previous mass there was small superficial ulceration noted with some thickened mucosal folds in this area but no obvious mass identified. Multiple biopsies were done from this ulcerated area. The scope at this time was withdrawn to the stomach, adequately insufflated with air, and upon careful examination, mucosa of the antrum, body, cardia and the fundus appeared normal. The scope was then withdrawn into the esophagus. Small hiatal hernia noted. The GE junction was located at 39 cm from the incisors. The esophagus appeared normal. There were no erosions or ulcerations seen and the patient tolerated the procedure well. IMPRESSION: 1. Slightly raised area with a superficial ulceration noted in the second portion of the duodenum at the site of previous ulcerated mass, but no obvious masses identified.. 2. Small hiatal hernia. RECOMMENDATIONS: The findings of this examination were discussed with the patient. At this time will await the biopsy results. Her diet will be advanced as tolerated.
[2017-10-23] MEDS: MAGNESIUM OXIDE 400 MG TAB PO SCH (13:09)
[2017-10-23 15:58] VITALS: BP 138/83; PULSE 62; TEMP 98.3
--- NOTE | 2017-10-24 05:35 | PN ---
PROGRESS NOTE The patient is seen for followup for acute kidney injury. Serum creatinine was as high as 3.97 on initial admission. The patient has been hydrated. She was hypovolemic and her creatinine is down to 1.1 mg/dL. She has underlying duodenal cancer and plan is to maintain outpatient IV fluids. PHYSICAL EXAMINATION: On examination, blood pressure is 127/73, heart rate 62 per minute. Patient is afebrile. EXAMINATION OF THE HEART: S1, S2. EXAMINATION OF THE LUNGS: Bilateral breath sounds are heard. Abdomen is soft, nontender. Examination of the lower extremities shows no evidence of edema. FL[employer]ER exam is grossly intact. LAB: Labs show sodium 140, potassium 3.7, BUN 7, serum creatinine 1.1. Magnesium 1.6. ASSESSMENT: 1. Acute kidney injury, prerenal, currently significantly improved. 2. Intravascular volume depletion. We will maintain patient on IV fluids as outpatient. She is encouraged to maintain good oral intake as much as possible. 3. Duodenal adenocarcinoma, status post chemotherapy. PLAN: Outpatient IV fluid administration twice a week, 1 L, and monitor labs periodically. MMODL / IJN: [id number] /
--- NOTE | 2017-10-24 15:03 | PN ---
PROGRESS NOTE CHIEF COMPLAINT: CA of the duodenum with nausea and vomiting. HISTORY OF PRESENT ILLNESS: This lady is still having nausea and occasional episodes of vomiting. PHYSICAL EXAM: Chest and cardiac exam is normal. She is pale. She is a little bit tender over the epigastrium. Bowel sounds are present. IMPRESSION: 1. Intractable nausea and vomiting. 2. Carcinoma of the duodenum. 3. Anemia. PLAN: Continue efforts to bring her nausea under control. MMODL / IJN: [id number] /
--- NOTE | 2017-10-24 16:48 | DS ---
DISCHARGE SUMMARY DATE OF DISCHARGE: 10/23/2017 CHIEF COMPLAINT: Dehydration, prerenal azotemia, anemia and carcinoma of the duodenum. HISTORY OF PRESENT ILLNESS: Details of this lady's history and physical can be found in the initial workup. LABORATORY STUDIES: While she was in the hospital she had laboratory studies, details of which can be found in the laboratory section of her chart. COURSE IN THE HOSPITAL: After admission she was placed on bedrest and started on intravenous fluids and she was rehydrated. BUN and creatinine came down to a normal range. She was followed by Nephrology. She did have difficulty with nausea and vomiting, and this was beginning to subside. It was felt that she could go home and she will go home on light activity about the house. She will be is set up with Visiting Nursing. We will see her in the office in several days. FINAL DIAGNOSES: 1. Dehydration. 2. Prerenal azotemia. 3. Carcinoma of the duodenum. 4. Anemia. OPERATIONS: None. CONSULTATIONS: Oncology. She is improved. MMODL / IJN: [id number] /
== END 2017-10-23 16:45 | disposition home or self-care (01) | DRG 683 ==
LOC: EC 10:56 → 5MS5E 13:27
PROVIDERS: ADMIT Family Medicine; ATTEND Family Medicine
PROC: 0DB98ZX Excision of Duodenum, Via Natural or Artificial Opening Endoscopic, Diagnostic (ICD-10-PCS; principal; 2017-10-23 07:30)
DX: N17.9 Acute kidney failure, unspecified (principal); C17.0 Malignant neoplasm of duodenum; D64.81 Anemia due to antineoplastic chemotherapy; E86.0 Dehydration; E83.42 Hypomagnesemia; E86.1 Hypovolemia; E03.9 Hypothyroidism, unspecified; E61.1 Iron deficiency; E78.5 Hyperlipidemia, unspecified; E87.6 Hypokalemia; I10 Essential (primary) hypertension; K44.9 Diaphragmatic hernia without obstruction or gangrene; Z79.899 Other long term (current) drug therapy; Z90.710 Acquired absence of both cervix and uterus; Z86.711 Personal history of pulmonary embolism; Z95.828 Presence of other vascular implants and grafts; Z87.81 Personal history of (healed) traumatic fracture; Z92.21 Personal history of antineoplastic chemotherapy; Z86.010 Personal history of colon polyps; Z88.8 Allergy status to other drugs, medicaments and biological substances; Z86.19 Personal history of other infectious and parasitic diseases; Z87.440 Personal history of urinary (tract) infections
CPT/HCPCS: 36415; 43239; 71046; 80048; 80053; 81001; 82728; 83540; 83550; 83690; 83735; 84100; 84132; 85025; 88305; 96361; 96365; 99285

== ENCOUNTER → 2017-10-26 | Outpatient (CLI) | payer MEDICARE, BC ==
--- NOTE | 2017-10-26 17:20 | US ---
EXAMINATION TYPE: US kidneys/renal and bladder DATE OF EXAM: 10/26/2017 COMPARISON: CT chest abdomen pelvis 04/22/2017 CLINICAL HISTORY: N17.9 Acute Kidney Injury. Pt has no appetite, she has not injured herself pt unable to take in deep breath ,has diarrhea also, and can not fill bladder EXAM MEASUREMENTS: Right Kidney: 8.3 x 4.8 x 3.6 cm Left Kidney: 8.5 x 4.1 x 4.3 cm Post Void Residual Volume: 14 mL Right Kidney: small cortical cyst 1.1 x 0.9 x 0.8 cm small 0.5 x 0.6 x 0.4. Right kidney cortex. Identified on CT examination 2016 Left Kidney: 0.5 x 0.4 x 0.3 cm echogenic focus without posterior shadowing. Not identified CT exam 2 017. Lower renal pelvis prominent, similar to CT examination 2017 Bladder: wnl. Patient has diarrhea , and can not fill bladder . Bilateral Jets seen: Yes Normal Post Void Residual: Yes IMPRESSION: 1. Small echogenic focus within the right kidney. Angiomyolipoma be considered. Not on 2017 CT examin ation. Follow-up ultrasound in 3 months is recommended. 2. Echogenic focus of diffusion shadowing nonobstructing renal stone.
== END | disposition home or self-care (01) ==
LOC: RADUSWWP 16:29
PROVIDERS: ATTEND Internal Medicine
DX: N20.0 Calculus of kidney (principal)
CPT/HCPCS: 76770

== ENCOUNTER → 2017-11-24 | Outpatient (CLI) | payer MEDICARE, BC ==
[2017-11-24 10:18] LABS: Potassium 4.8 mmol/L (3.5-5.1)
== END | disposition home or self-care (01) ==
LOC: LABWHC1 09:21
PROVIDERS: ATTEND Nurse Practitioner Family
DX: E87.6 Hypokalemia (principal); E83.42 Hypomagnesemia
CPT/HCPCS: 36415; 83735; 84132

== ENCOUNTER 2018-02-03 11:30 | Inpatient (IN) | payer MEDICARE, BC ==
[2018-02-03] MEDS ORDERED: PANTOPRAZOLE 40 MG/10 ML VIAL IVP STA (11:53)
[2018-02-03] MEDS ORDERED: SODIUM CHLORIDE 0.9% 1,000 ML IV STA (11:53)
--- NOTE | 2018-02-03 12:02 | ED ---
GI Bleed HPI - General Chief complaint: GI Bleed Stated complaint: Vomiting Blood Time Seen by Provider: 02/03/18 11:44 Source: patient, family, RN notes reviewed, old records reviewed Mode of arrival: wheelchair Limitations: no limitations - History of Present Illness Initial comments: This is a 73-year-old female history of duodenal cancer status post chemotherapy which ended September 13 of this past year status post radiation therapy that ended December 05 of this year who complains of nausea vomiting times to starting last night with bright red blood. She also has some nonspecific abdominal discomfort with this she also has some lightheadedness and dizziness with it. She denies any overt fevers chills or sweats. Of note she did have a upper endoscopy done 2 days ago at [facility]. Is Lizeth patient knows it wasn't in significant exam. No other complaints this time no other modifying factors MD complaint: gross hematemesis - Related Data Home Medications Medication Instructions Recorded Confirmed Atorvastatin [Lipitor] 40 mg PO DAILY 03/10/16 02/03/18 Levothyroxine Sodium [Synthroid] 100 mcg PO DAILY 03/10/16 02/03/18 Ferrous Sulfate [Iron (65 MG 325 mg PO DAILY 04/13/17 02/03/18 Elemental)] Potassium Chloride ER [K-Dur 20] 20 meq PO BID 10/17/17 02/03/18 Cholecalciferol (Vitamin D3) 2,000 unit PO DAILY 02/03/18 02/03/18 [Vitamin D3] Magnesium Oxide [Mag-Ox] 400 mg PO BID 02/03/18 02/03/18 Allergies Allergy/AdvReac Type Severity Reaction Status Date / Time No Known Allergies Allergy Verified 02/03/18 15:54 Review of Systems ROS Statement: Those systems with pertinent positive or pertinent negative responses have been documented in the HPI. ROS Other: All systems not noted in ROS Statement are negative. Past Medical History Past Medical History: Cancer, Hyperlipidemia, Hypertension, Pulmonary Embolus ( PE), Syncope, Thyroid Disorder Additional Past Medical History / Comment(s): Chronic anemia, antral gastritis and colonic polyps based on the most recent EGD and colonoscopy done at [facility] 02/17/2017, positive H. pylori, hypertension, hyperlipidemia , hypothyroidism pulmonary embolism, pleural effusions,uti colon cancer starts radation on oct, completed 6 chemo sesions sep 13 2017. History of Any Multi-Drug Resistant Organisms: None Reported Past Surgical History: Hysterectomy, Tonsillectomy Additional Past Surgical History / Comment(s): ivc filter, rt mediport, partial hysterectomy, breast bx-neg Past Anesthesia/Blood Transfusion Reactions: No Reported Reaction Additional Past Anesthesia/Blood Transfusion Reaction / Comment(s): blood transfuison-no reaction Past Psychological History: No Psychological Hx Reported Smoking Status: Never smoker Past Alcohol Use History: None Reported Past Drug Use History: None Reported - Past Family History Mother Family Medical History: No Reported History Additional Family Medical History / Comment(s): " from old age" Father Family Medical History: CVA/TIA Additional Family Medical History / Comment(s): emphysema General Exam - General Exam Comments Initial Comments: This is a well-developed asthenic appearing female who is awake alert oriented 3 Limitations: no limitations General appearance: alert Head exam: Present: atraumatic, normocephalic, normal inspection Eye exam: Present: normal appearance, PERRL, EOMI. Absent: scleral icterus, conjunctival injection, periorbital swelling ENT exam: Present: mucous membranes dry Neck exam: Present: normal inspection. Absent: tenderness, meningismus, lymphadenopathy Respiratory exam: Present: normal lung sounds bilaterally. Absent: respiratory distress, wheezes, rales, rhonchi, stridor Cardiovascular Exam: Present: regular rate, normal rhythm, normal heart sounds. Absent: systolic murmur, diastolic murmur, rubs, gallop, clicks GI/Abdominal exam: Present: soft, tenderness, normal bowel sounds, hernia ( Nonspecific exam mild epigastric tenderness no guarding rebound masses or bruits there is an umbilical hernia noted that is easily reducible). Absent: distended, guarding, rebound, rigid, pulsatile mass Extremities exam: Present: normal inspection, full ROM, normal capillary refill. Absent: tenderness, pedal edema, joint swelling, calf tenderness Back exam: Present: normal inspection Neurological exam: Present: alert, oriented X3, CN II-XII intact Psychiatric exam: Present: normal affect, normal mood Skin exam: Present: warm, dry, intact, normal color. Absent: rash Course Vital Signs 02/03/18 02/03/18 02/03/18 11:37 12:24 13:20 Temperature 100.2 F H Pulse Rate 96 70 67 Respiratory 20 18 18 Rate Blood Pressure 166/85 166/72 178/79 O2 Sat by Pulse 98 96 97 Oximetry 02/03/18 02/03/18 14:03 15:14 Temperature 98.8 F Pulse Rate 68 77 Respiratory 20 18 Rate Blood Pressure 165/75 169/78 O2 Sat by Pulse 98 98 Oximetry Medical Decision Making - Medical Decision Making I did discuss [employer] the patient family as well as with Dr. Amaro. Patient does have a fever but also evidence of pancreatitis. She did have an upper endoscopy done 2 days ago and complained hematemesis. She denies any abnormal colored stools. Her hemoglobin level that she improved from the last one we have on record. She will be admitted with GI consultation was a slightly elevated patient of her troponin. - Lab Data Result diagrams: 02/03/18 12:22 02/03/18 12:22 Lab Results 02/03/18 02/03/18 02/03/18 Range/Units 12:22 12:22 12:22 WBC 7.7 (3.8-10.6) k/uL RBC 3.47 L (3.80-5.40) m/uL Hgb 10.6 L (11.4-16.0) gm/dL Hct 31.8 L (34.0-46.0) % MCV 91.9 D (80.0-100.0) fL MCH 30.6 (25.0-35.0) pg MCHC 33.3 (31.0-37.0) g/dL RDW 15.4 (11.5-15.5) % Plt Count 180 D (150-450) k/uL Neutrophils % 90 % Lymphocytes % 4 % Monocytes % 5 % Eosinophils % 0 % Basophils % 0 % Neutrophils # 6.9 (1.3-7.7) k/uL Lymphocytes # 0.3 L (1.0-4.8) k/uL Monocytes # 0.4 (0-1.0) k/uL Eosinophils # 0.0 (0-0.7) k/uL Basophils # 0.0 (0-0.2) k/uL PT (9.0-12.0) sec INR (<1.2) APTT (22.0-30.0) sec Sodium 141 (137-145) mmol/L Potassium 3.8 (3.5-5.1) mmol/L Chloride 104 (98-107) mmol/L Carbon Dioxide 24 (22-30) mmol/L Anion Gap 13 mmol/L BUN 23 H (7-17) mg/dL Creatinine 0.76 (0.52-1.04) mg/dL Est GFR (CKD-EPI)AfAm 90 (>60 ml/min/1.73 sqM) Est GFR (CKD-EPI)NonAf 78 (>60 ml/min/1.73 sqM) Glucose 106 H (74-99) mg/dL Plasma Lactic Acid Rakesh (0.7-2.0) mmol/L Calcium 9.4 (8.4-10.2) mg/dL Magnesium 1.8 (1.6-2.3) mg/dL Total Bilirubin 3.0 H (0.2-1.3) mg/dL AST 153 H (14-36) U/L ALT 89 H (9-52) U/L Alkaline Phosphatase 306 H (38-126) U/L Total Creatine Kinase <20 L (30-135) U/L CK-MB (CK-2) <0.2 (0.0-2.4) ng/mL CK-MB (CK-2) Rel Index Troponin I 0.037 H* (0.000-0.034) ng/mL Total Protein 5.9 L (6.3-8.2) g/dL Albumin 2.8 L (3.5-5.0) g/dL Lipase 1595 H (23-300) U/L Blood Type Blood Type Recheck Antibody Screen Spec Expiration Date 02/03/18 02/03/18 02/03/18 Range/Units 12:22 12:22 12:22 WBC (3.8-10.6) k/uL RBC (3.80-5.40) m/uL Hgb (11.4-16.0) gm/dL Hct (34.0-46.0) % MCV (80.0-100.0) fL MCH (25.0-35.0) pg MCHC (31.0-37.0) g/dL RDW (11.5-15.5) % Plt Count (150-450) k/uL Neutrophils % % Lymphocytes % % Monocytes % % Eosinophils % % Basophils % % Neutrophils # (1.3-7.7) k/uL Lymphocytes # (1.0-4.8) k/uL Monocytes # (0-1.0) k/uL Eosinophils # (0-0.7) k/uL Basophils # (0-0.2) k/uL PT 11.0 (9.0-12.0) sec INR 1.1 (<1.2) APTT 23.3 (22.0-30.0) sec Sodium (137-145) mmol/L Potassium (3.5-5.1) mmol/L Chloride (98-107) mmol/L Carbon Dioxide (22-30) mmol/L Anion Gap mmol/L BUN (7-17) mg/dL Creatinine (0.52-1.04) mg/dL Est GFR (CKD-EPI)AfAm (>60 ml/min/1.73 sqM) Est GFR (CKD-EPI)NonAf (>60 ml/min/1.73 sqM) Glucose (74-99) mg/dL Plasma Lactic Acid Rakesh 1.2 (0.7-2.0) mmol/L Calcium (8.4-10.2) mg/dL Magnesium (1.6-2.3) mg/dL Total Bilirubin (0.2-1.3) mg/dL AST (14-36) U/L ALT (9-52) U/L Alkaline Phosphatase (38-126) U/L Total Creatine Kinase (30-135) U/L CK-MB (CK-2) (0.0-2.4) ng/mL CK-MB (CK-2) Rel Index Troponin I (0.000-0.034) ng/mL Total Protein (6.3-8.2) g/dL Albumin (3.5-5.0) g/dL Lipase (23-300) U/L Blood Type A Positive Blood Type Recheck No Antibody Screen NEGATIVE Spec Expiration Date 02/06/20182321 - EKG Data -: EKG Interpreted by Ga EKG shows normal: sinus rhythm (Sinus rhythm with a rate of 68. Interval 146 QRS 76 QT since QTC of 400/425 nonspecific anterior changes old inferior changes this is apparently EKG dated 04/25/17 which shows some prominence severity present inverted T-wave in aVR and V1 T-wave is inverted in V2.) - Radiology Data Radiology results: report reviewed (I did review the imaging and report no acute findings noted), image reviewed Disposition Clinical Impression: Acute pancreatitis, Upper GI bleed, Chronic anemia, History of duodenal cancer , Fever Disposition: ADMITTED IP TO THIS [facility] Condition: Stable Referrals: Sebastian Miguel MD [Primary Care Provider] - 1-2 days
[2018-02-03 12:35] LABS: Basophils % (A) 0 %; Eosinophils % (A) 0 %; HCT 31.8 % (34.0-46.0); HGB 10.6 gm/dL (11.4-16.0); Lymphocytes # (A) 0.3 k/uL (1.0-4.8); Lymphocytes % (A) 4 %; MCH 30.6 pg (25.0-35.0); MCHC 33.3 g/dL (31.0-37.0); Mean Platelet Volume 7.6; Monocytes # (A) 0.4 k/uL (0-1.0); Monocytes % (A) 5 %; Neutrophils # (A) 6.9 k/uL (1.3-7.7); Neutrophils % (A) 90 %; RBC 3.47 m/uL (3.80-5.40); RDW 15.4 % (11.5-15.5); WBC 7.7 k/uL (3.8-10.6)
[2018-02-03 12:44] LABS: Albumin 2.8 g/dL (3.5-5.0); Calcium 9.4 mg/dL (8.4-10.2); Magnesium 1.8 mg/dL (1.6-2.3); Potassium 3.8 mmol/L (3.5-5.1); Total Protein 5.9 g/dL (6.3-8.2)
[2018-02-03 12:49] LABS: INR 1.1 (<1.2); Partial Thromboplastin Time 23.3 sec (22.0-30.0)
[2018-02-03 12:53] LABS: MCV 91.9 fL (80.0-100.0); Platelet Count 180 k/uL (150-450)
[2018-02-03 12:57] LABS: Creatine Kinase <20 U/L (30-135)
--- NOTE | 2018-02-03 13:00 | XR ---
EXAMINATION TYPE: XR abdomen acute w cxr DATE OF EXAM: 02/03/2018 COMPARISON: Nuclear medicine PET/CT 09/23/2017 HISTORY: Duodenal malignancy, pain in chest and abdomen TECHNIQUE: Supine, upright, and frontal chest views of the abdomen and chest are obtained. FINDINGS: There is an inferior vena cava filter present in the abdomen with the nose of the filter at the L1 transverse process level. There are overlying cardiac leads. There is a port in the right pec jennifer region, distal tip of the catheter is overlying superior vena cava. There is no evidence for pneumoperitoneum. The bowel gas pattern is unremarkable as there is air throughout nondilated small and large bowel. Air-fluid levels are present without bowel distention. No mass effects are seen. No unusual calcifications. Vascular calcifications within the pelvis. There is a scoliotic curvature to the spine. IMPRESSION: Postop findings. Correlate for ileus or enteritis.
[2018-02-03 13:11] LABS: Creatine Kinase MB <0.2 ng/mL (0.0-2.4)
[2018-02-03 13:12] LABS: Troponin I 0.037 ng/mL (0.000-0.034)
[2018-02-03] MEDS ORDERED: HYDROmorphone 0.5 MG/0.5 ML SYRINGE IVP PRN (16:01)
[2018-02-03] MEDS ORDERED: NALOXONE 0.4 MG/ML 1 ML VIAL IV PRN (16:01)
[2018-02-03] MEDS ORDERED: NITROGLYCERIN SL TABS 0.4 MG TAB SUBLINGUAL PRN (16:06)
[2018-02-03 16:34] LABS: Basophils % (A) 0 %; Eosinophils % (A) 1 %; HCT 31.7 % (34.0-46.0); HGB 10.4 gm/dL (11.4-16.0); Lymphocytes # (A) 0.4 k/uL (1.0-4.8); Lymphocytes % (A) 5 %; MCH 30.2 pg (25.0-35.0); MCHC 32.7 g/dL (31.0-37.0); MCV 92.4 fL (80.0-100.0); Mean Platelet Volume 7.3; Monocytes # (A) 0.4 k/uL (0-1.0); Monocytes % (A) 5 %; Neutrophils # (A) 7.3 k/uL (1.3-7.7); Neutrophils % (A) 88 %; Platelet Count 206 k/uL (150-450); RBC 3.43 m/uL (3.80-5.40); RDW 15.2 % (11.5-15.5); WBC 8.2 k/uL (3.8-10.6)
[2018-02-03 16:45] LABS: Creatine Kinase <20 U/L (30-135)
[2018-02-03] MEDS: SODIUM CHLORIDE 0.9% 1,000 ML IV SCH (16:45)
[2018-02-03 16:48] LABS: Appearance,Urine Cloudy (Clear); Bacteria,Urine Rare /hpf; Bilirubin,Urine 2+ (Negative); Blood,Urine Negative (Negative); Color,Urine Dark Brown; Glucose,Urine (UA) Negative (Negative); Ketones,Urine 1+ (Negative); Leukocyte Esterase,Urine Trace (Negative); Mucus,Urine Many /hpf; Nitrite,Urine Negative (Negative); Protein,Urine 2+ (Negative); RBC,Urine 2 /hpf (0-5); Specific Gravity,Urine 1.028 (1.001-1.035); Squamous Epithelial Cell,Urine 3 /hpf (0-4); WBC,Urine 5 /hpf (0-5)
[2018-02-03 16:57] LABS: Creatine Kinase MB <0.2 ng/mL (0.0-2.4); Troponin I 0.028 ng/mL (0.000-0.034)
[2018-02-03 19:59] VITALS: BMI 27.3
[2018-02-03] MEDS: PANTOPRAZOLE 40 MG/10 ML VIAL IV SCH (20:03)
--- NOTE | 2018-02-03 22:54 | P.HPIM ---
History of Present Illness H&P Date: 02/03/18 Chief Complaint: Nausea vomiting/hematemesis Patient is a 73-year-old female with a known history of duodenal cancer status post chemotherapy in August 2017 and radiation in October 2017, hypothyroidism and multiple other medical problems came to ER with complaints of nausea and multiple emesis with streaks of blood in it and epigastric abdominal discomfort. She also has some nonspecific abdominal discomfort with this she also has some lightheadedness and dizziness with it. She denies any overt fevers chills or sweats. Of note she did have a upper endoscopy done 2 days ago at [facility]. No complaints of chest pain or shortness of breath. antral gastritis and colonic polyps based on the most recent EGD and colonoscopy done at [facility] 02/17/2017, positive H. pylori, Patient was found to be febrile with T-max 100.7 Troponin 0.037 Lipase 1595 The abdominal x-ray showed correlate for enteritis Review of Systems Constitutional: Patient denies any fever or chills . No generalized weakness or weight loss. Abdomen: Patient does have nausea vomiting and streaks of blood in the emesis. Abdominal discomfort. No constipation. Cardiovascular: Patient denies any chest pain or short of breath no palpitations. Respiratory: patient denied any cough is from production. No shortness of breath Neurologic: Patient denied any numbness or tingling headache. Musculoskeletal: Patient denies any complaints of joint swelling or deformity. Skin: Negative Psychiatric: Negative Endocrine: No heat or cold intolerance. No recent weight gain. Genitourinary: No dysuria or hematuria. All other 14 point ROS negative except the above Past Medical History Past Medical History: Cancer, Hyperlipidemia, Hypertension, Pulmonary Embolus ( PE), Syncope, Thyroid Disorder Additional Past Medical History / Comment(s): Chronic anemia, antral gastritis and colonic polyps based on the most recent EGD and colonoscopy done at [facility] 02/17/2017, positive H. pylori, hypertension, hyperlipidemia , hypothyroidism pulmonary embolism, pleural effusions,uti colon cancer starts radation on oct, completed 6 chemo sesions sep 13 2017. History of Any Multi-Drug Resistant Organisms: None Reported Past Surgical History: Hysterectomy, Tonsillectomy Additional Past Surgical History / Comment(s): ivc filter, rt mediport, partial hysterectomy, breast bx-neg Past Anesthesia/Blood Transfusion Reactions: No Reported Reaction Additional Past Anesthesia/Blood Transfusion Reaction / Comment(s): blood transfuison-no reaction Past Psychological History: No Psychological Hx Reported Smoking Status: Never smoker Past Alcohol Use History: None Reported Past Drug Use History: None Reported - Past Family History Mother Family Medical History: No Reported History Additional Family Medical History / Comment(s): " from old age" Father Family Medical History: CVA/TIA Additional Family Medical History / Comment(s): emphysema Medications and Allergies Home Medications Medication Instructions Recorded Confirmed Type Atorvastatin [Lipitor] 40 mg PO DAILY 03/10/16 02/03/18 History Levothyroxine Sodium [Synthroid] 100 mcg PO DAILY 03/10/16 02/03/18 History Ferrous Sulfate [Iron (65 MG 325 mg PO DAILY 04/13/17 02/03/18 History Elemental)] Potassium Chloride ER [K-Dur 20] 20 meq PO BID 10/17/17 02/03/18 History Cholecalciferol (Vitamin D3) 2,000 unit PO DAILY 02/03/18 02/03/18 History [Vitamin D3] Magnesium Oxide [Mag-Ox] 400 mg PO BID 02/03/18 02/03/18 History Allergies Allergy/AdvReac Type Severity Reaction Status Date / Time No Known Allergies Allergy Verified 02/03/18 15:54 Physical Exam Vitals: Vital Signs Temp Pulse Resp BP Pulse Ox 02/03/18 15:14 98.8 F 77 18 169/78 98 02/03/18 14:03 68 20 165/75 98 02/03/18 13:20 67 18 178/79 97 02/03/18 12:24 70 18 166/72 96 02/03/18 11:37 100.2 F H 96 20 166/85 98 Intake and Output 02/03/18 02/03/18 02/03/18 06:59 14:59 22:59 Other: Weight 63.503 kg PHYSICAL EXAMINATION: Patient is lying in the bed comfortably, no acute distress, awake alert and oriented.. HEENT: Normocephalic. Neck is supple. Pupils reactive. Nostrils clear. Oral cavity is moist. Ears reveal no drainage. Neck reveals no JVD, carotid bruits, or thyromegaly. CHEST EXAMINATION: Trachea is central. Symmetrical expansion. Bibasilar diminished air entry Lung olivera clear to auscultation and percussion. CARDIAC: Normal S1, S2 with no gallops. Systolic murmur ABDOMEN: Soft. Bowel sounds normal. No organomegaly. No abdominal bruits. Extremities: reveal no edema. No clubbing or cyanosis Neurologically awake, alert, oriented x3 with well-coordinated movements. No focal deficits noted Skin: No rash or skin lesions. Psychiatric: Cooperative. Nonsuicidal Musculoskeletal: No joint swelling or deformity. Normal range of motion. Results CBC & Chem 7: 02/03/18 16:24 02/03/18 12:22 Labs: Abnormal Lab Results - Last 24 Hours (Table) 02/03/18 02/03/18 02/03/18 Range/Units 12:22 12:22 12:22 RBC 3.47 L (3.80-5.40) m/uL Hgb 10.6 L (11.4-16.0) gm/dL Hct 31.8 L (34.0-46.0) % Lymphocytes # 0.3 L (1.0-4.8) k/uL BUN 23 H (7-17) mg/dL Glucose 106 H (74-99) mg/dL Total Bilirubin 3.0 H (0.2-1.3) mg/dL AST 153 H (14-36) U/L ALT 89 H (9-52) U/L Alkaline Phosphatase 306 H (38-126) U/L Total Creatine Kinase <20 L (30-135) U/L Troponin I 0.037 H* (0.000-0.034) ng/mL Total Protein 5.9 L (6.3-8.2) g/dL Albumin 2.8 L (3.5-5.0) g/dL Lipase 1595 H (23-300) U/L 02/03/18 Range/Units 16:24 RBC 3.43 L (3.80-5.40) m/uL Hgb 10.4 L (11.4-16.0) gm/dL Hct 31.7 L (34.0-46.0) % Lymphocytes # 0.4 L (1.0-4.8) k/uL BUN (7-17) mg/dL Glucose (74-99) mg/dL Total Bilirubin (0.2-1.3) mg/dL AST (14-36) U/L ALT (9-52) U/L Alkaline Phosphatase (38-126) U/L Total Creatine Kinase (30-135) U/L Troponin I (0.000-0.034) ng/mL Total Protein (6.3-8.2) g/dL Albumin (3.5-5.0) g/dL Lipase (23-300) U/L Thrombosis Risk Factor Assmnt - DVT/VTE Prophylaxis DVT/VTE Prophylaxis: Mechanical Prophylaxis ordered Assessment and Plan Assessment: Abdominal pain secondary to acute pancreatitis with elevated lipase level EGD at [facility] 2 days ago Nausea vomiting and hematemesis possible upper GI bleed Possible acute blood loss anemia hemoglobin 10.8--10..4 now Elevated liver enzymes ileus History of antral gastritis Duodenal cancer status post chemotherapy and radiation History of PE status post IVC filter Hypertension Hyperlipidemia Hypothyroidism History of H. pylori DVT prophylaxis with SCDs Plan: Patient will be continued on IV hydration and Protonix IV. Nothing by mouth. GI consult. Continue to monitor H&H and follow closely. Follow-up repeat CMP tomorrow. Continue with current management and further recommendations based on the clinical course. Prognosis is guarded. Time with Patient: Greater than 30
[2018-02-03 23:49] LABS: Creatine Kinase 30 U/L (30-135)
[2018-02-04 00:02] LABS: Creatine Kinase MB <0.2 ng/mL (0.0-2.4); Troponin I <0.012 ng/mL (0.000-0.034)
[2018-02-04] MEDS: LEVOTHYROXINE 100 MCG TAB PO SCH (05:52)
[2018-02-04 08:16] LABS: Basophils % (A) 0 %; Eosinophils % (A) 0 %; HGB 9.2 gm/dL (11.4-16.0); Hypochromasia Slight; Lymphocytes # (A) 0.3 k/uL (1.0-4.8); Lymphocytes % (A) 4 %; MCH 29.2 pg (25.0-35.0); MCHC 30.6 g/dL (31.0-37.0); MCV 95.3 fL (80.0-100.0); Mean Platelet Volume 7.3; Monocytes # (A) 0.4 k/uL (0-1.0); Monocytes % (A) 5 %; Neutrophils # (A) 6.4 k/uL (1.3-7.7); Neutrophils % (A) 89 %; Platelet Count 183 k/uL (150-450); RBC 3.15 m/uL (3.80-5.40); RDW 15.4 % (11.5-15.5); WBC 7.2 k/uL (3.8-10.6)
[2018-02-04] MEDS: SODIUM CHLORIDE 0.9% 1,000 ML IV SCH ×2 (08:18→08:19)
[2018-02-04 08:29] LABS: ALT 67 U/L (9-52); AST 77 U/L (14-36); Albumin 2.3 g/dL (3.5-5.0); Alkaline Phosphatase 223 U/L (38-126); Anion Gap 13 mmol/L; Blood Urea Nitrogen 22 mg/dL (7-17); Calcium 8.6 mg/dL (8.4-10.2); Carbon Dioxide 18 mmol/L (22-30); Chloride 110 mmol/L (98-107); Cholesterol 126 mg/dL (<200); Glucose 76 mg/dL (74-99); HDL Cholesterol 44 mg/dL (40-60); LDL Cholesterol,Calculated 66 mg/dL (0-99); Potassium 3.4 mmol/L (3.5-5.1); Sodium 141 mmol/L (137-145); Total Bilirubin 1.7 mg/dL (0.2-1.3); Total Protein 5.1 g/dL (6.3-8.2); Triglycerides 81 mg/dL (<150)
[2018-02-04] MEDS: CHOLECALCIFEROL 1,000 UNIT TAB PO SCH (09:19)
[2018-02-04] MEDS: PANTOPRAZOLE 40 MG/10 ML VIAL IV SCH ×2 (09:19→20:37)
[2018-02-04] MEDS: ATORVASTATIN 40 MG TAB PO SCH (09:20)
--- NOTE | 2018-02-04 10:07 | XR ---
EXAMINATION TYPE: XR chest 1V DATE OF EXAM: 02/04/2018 COMPARISON: Prior chest x-ray 02/03/2018 HISTORY: Fever, abnormal chest x-ray TECHNIQUE: Single frontal view of the chest is obtained. FINDINGS: Patient is again rotated. Port shows a stable configuration in the right pectoral region. There are overlying cardiac leads. No evident pneumothorax or pleural effusion. Heart appears borderl ine enlarged. Pulmonary vascularity and greta not significantly changed. IMPRESSION: No acute process.
--- NOTE | 2018-02-04 13:09 | CONS ---
CONSULTATION DATE OF CONSULTATION: 02/04/18 REQUESTING PHYSICIAN: Dr. Miguel and Dr. Boyd. REASON FOR CONSULTATION: Acute upper GI bleed. HISTORY OF PRESENT ILLNESS: The patient is a 73-year-old pleasant white female, known to me from her previous office visits. 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 She had an appointment to see Dr. Morton at [facility] for possible surgery. She subsequently had an upper endoscopy/EUS of the pancreas done 2 days ago at [facility]. Results are not available at the time of this dictation. The patient does not recall any results. Subsequently, she was discharged home and was advised to follow up with them in a week from now. In the meantime after she came home, she started having more abdominal discomfort in the epigastric area associated with nausea, vomiting, and had 2 episodes of hematemesis. She became somewhat dizzy, lightheaded, came to the emergency room and subsequently admitted to hospital for further evaluation. Initial hemoglobin was 10.6 g/dL, and this morning it is 9.2 g/dL. The patient also was noted to have elevated amylase and lipase consistent with acute pancreatitis. She is feeling somewhat better this morning, very hungry and thirsty. Still has some vague epigastric discomfort, but has significantly improved. 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 PAST SURGICAL HISTORY: Tonsillectomy, IVC filter placement, hysterectomy, MediPort placement, breast biopsy. MEDICATIONS: At home, Lipitor, Synthroid, iron sulfate, K-Dur, vitamin D3, and magnesium oxide. ALLERGIES: None. SOCIAL HISTORY: No smoking. No alcohol use. FAMILY HISTORY: Unremarkable. REVIEW OF SYSTEMS: Cardiopulmonary: No chest pain, shortness of breath. Genitourinary: No dysuria or hematuria. Musculoskeletal unremarkable. Skin unremarkable. Endocrine unremarkable. Psychiatric unremarkable. Neurology unremarkable. ENT vision unremarkable. Constitutional: No recent weight loss. No fever, chills, night sweats. PHYSICAL EXAMINATION: She appears comfortable. No apparent distress. VITAL SIGNS: Stable. Blood pressure is 155/79, pulse rate 75, temperature 98.5. HEENT examination unremarkable. Conjunctivae pink. Sclerae anicteric. Oral cavity no lesions. Neck: No jugular venous distention or lymph node enlargement. Chest was clear to auscultation. HEART: Regular rate and rhythm. ABDOMEN: Soft. There was mild tenderness in the epigastric area. Bowel sounds are positive. No organomegaly. Extremities: No pedal edema. skin no rashes. NEUROLOGIC: Alert and oriented x3. No focal deficits. LABS: Done at time of admission to the hospital WBC 7.7, hemoglobin 10.6, and platelets are normal. PT/INR is within normal limits. T bilirubin was up to 3. AST 153, ALT 89, alkaline phosphatase is 306. Today T-bilirubin is down to 1.7. AST and ALT are 77 and 67 respectively. Alkaline phosphatase is 223. Lipase was 1595, today lipase is still pending. Hemoglobin 9.2, WBC 7.2, and platelets are 183. 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 Biopsies which revealed adenocarcinoma. The patient was recently seen by Dr. Morton at [facility] for possible surgical resection. She subsequently underwent upper endoscopy/EUS at [facility] 2 days ago. Results of which, records of which are not available at the time of this dictation. Following the procedure, she developed epigastric pain associated with nausea, vomiting, and 2 episodes of hematemesis and also noted to have elevated LFTs, bilirubin and pancreas all consistent with acute pancreatitis. She recalls having biopsies performed at the time of procedure. In any event she had 2 episodes of hematemesis now has resolved. The last one was yesterday morning. Abdominal pain is improving. Her labs are also improving. Hemoglobin stable at 9.2 g/dL. RECOMMENDATIONS: 1. Clear liquid diet. 2. Obtain records from [facility]. 3. No need to repeat any endoscopy intervention at the present time and will consider this only if she continues to have active ongoing bleeding. 4. Continue with Protonix 40 mg IV twice daily. 5. Repeat CBC in the morning. 6. We will follow the patient closely during her hospital stay. Thank you for this consultation. MMODL / IJN: [id number] /
[2018-02-04] MEDS ORDERED: ACETAMINOPHEN TAB 500 MG TAB PO STA (13:46)
--- NOTE | 2018-02-04 15:24 | P.CRDCN ---
History of Present Illness History of present illness: Mrs. Baltazar is a pleasant 73-year-old female past medical history significant for duodenal adenocarcinoma, hyperlipidemia, hypertension, chronic pancreatitis and history of PE. We have been asked to see her in consultation secondary to mild troponin elevation. She denies symptoms of chest pain, shortness of breath, dizziness, palpitations or diaphoresis. Per her was at the bedside she underwent a GI procedure last week at [facility] he is unsure of exactly what procedure performed his description it sounds like an EGD. Yesterday morning she started vomiting which she describes as a dark red blood. Acute abdominal series reveals possible ileus. She has also been seen in consultation by GI services. EKG on arrival reveals sinus mechanism with septal T-wave inversions. Chest x-ray is negative for an acute cardiopulmonary process Laboratory data reviewed, hemoglobin 9.2, platelets 183, potassium 3.4, sodium 141, magnesium 1.8, crit AST 77, ALP 67, alkaline phosphatase 223, initial cardiac enzyme 0.037, 0.028 and less than 0.12, lipase 1595, creatinine 0.64. Current cardiac medications include atorvastatin 40 mg daily and potassium supplementation twice a day. She also takes magnesium supplementation, Synthroid, ferrous sulfate and vitamin D. Most recent echocardiogram reveals preserved left ventricular systolic function with ejection fraction 60-65%, mild aortic valve stenosis with a mean gradient of 8.36 mmHg, borderline pulmonary hypertension with an RVSP 33.3 mmHg. This was obtained and April 2017. Review of Systems At the time of my exam: CONSTITUTIONAL: Denies fever. Denies chills. EYES: Denies blurred vision. Denies vision changes. Denies eye pain. EARS, NOSE, MOUTH & THROAT: Denies headache. Denies sore throat. Denies ear pain. CARDIOVASCULAR: Denies chest pain. Denies shortness of breath. Denies orthopnea. Denies PND. Denies palpitations. RESPIRATORY: Denies cough. GASTROINTESTINAL: Complains of abdominal pain. Denies diarrhea. Denies constipation. Complains of nausea. Denies vomiting. MUSCULOSKELETAL: Denies myalgias. INTEGUMENTARY: Denies pruitis. Denies rash. NEUROLOGIC: Denies numbness. Denies tingling. Denies weakness. PSYCHIATRIC: Denies anxiety. Denies depression. ENDOCRINE: Denies fatigue. Denies weight change. Denies polydipsia. Denies polyurina. GENITOURINARY: Denies burning, hematuria or urgency with micturation. HEMATOLOGIC: Denies history of anemia. Denies bleeding. Past Medical History Past Medical History: Cancer, Hyperlipidemia, Hypertension, Pulmonary Embolus ( PE), Syncope, Thyroid Disorder Additional Past Medical History / Comment(s): Chronic anemia, antral gastritis and colonic polyps based on the most recent EGD and colonoscopy done at [facility] 02/17/2017, positive H. pylori, hypertension, hyperlipidemia , hypothyroidism pulmonary embolism, pleural effusions,uti colon cancer starts radation on oct, completed 6 chemo sesions sep 13 2017. History of Any Multi-Drug Resistant Organisms: None Reported Past Surgical History: Hysterectomy, Tonsillectomy Additional Past Surgical History / Comment(s): ivc filter, rt mediport, partial hysterectomy, breast bx-neg Past Anesthesia/Blood Transfusion Reactions: No Reported Reaction Additional Past Anesthesia/Blood Transfusion Reaction / Comment(s): blood transfuison-no reaction Past Psychological History: No Psychological Hx Reported Smoking Status: Never smoker Past Alcohol Use History: None Reported Past Drug Use History: None Reported - Past Family History Mother Family Medical History: No Reported History Additional Family Medical History / Comment(s): " from old age" Father Family Medical History: CVA/TIA Additional Family Medical History / Comment(s): emphysema Medications and Allergies Home Medications Medication Instructions Recorded Confirmed Type Atorvastatin [Lipitor] 40 mg PO DAILY 03/10/16 02/03/18 History Levothyroxine Sodium [Synthroid] 100 mcg PO DAILY 03/10/16 02/03/18 History Ferrous Sulfate [Iron (65 MG 325 mg PO DAILY 04/13/17 02/03/18 History Elemental)] Potassium Chloride ER [K-Dur 20] 20 meq PO BID 10/17/17 02/03/18 History Cholecalciferol (Vitamin D3) 2,000 unit PO DAILY 02/03/18 02/03/18 History [Vitamin D3] Magnesium Oxide [Mag-Ox] 400 mg PO BID 02/03/18 02/03/18 History Allergies Allergy/AdvReac Type Severity Reaction Status Date / Time No Known Allergies Allergy Verified 02/03/18 15:54 Physical Exam Vitals: Vital Signs Temp Pulse Pulse Resp BP BP Pulse Ox 02/04/18 11:30 96.7 F L 102 H 18 107/68 98 02/04/18 08:10 98.6 F 66 18 132/69 95 02/04/18 04:00 100.0 F H 70 16 135/75 94 L 02/04/18 00:00 98.5 F 75 16 155/79 95 02/03/18 19:38 100.7 F H 77 16 148/86 95 02/03/18 18:45 99.9 F H 73 18 163/79 98 02/03/18 16:47 84 18 154/74 98 02/03/18 15:14 98.8 F 77 18 169/78 98 Intake and Output 02/04/18 02/04/18 02/04/18 06:59 14:59 22:59 Intake Total 1000 Output Total 300 2 Balance -300 998 Intake: Intake, IV Titration 1000 Amount Sodium Chloride 0.9% 1, 1000 000 ml @ 125 mls/hr IV . Q8H [facility] Rx#:[id number] Output: Urine 300 2 Other: Voiding Method Toilet Toilet # Voids 1 Weight 63.1 kg Blood pressure 107/68 heart rate 102 afebrile at this time but has had a fever since admission, maintaining oxygen saturation on room air GENERAL: This is a 73-year-old female in no apparent distress at the time of my examination. HEENT: Head is atraumatic, normocephalic. Pupils are equal, round. Sclerae anicteric. Conjunctivae are clear. Mucous membranes of the mouth are moist. Neck is supple. There is no jugular venous distention. No carotid bruit is heard. LUNGS: Clear to auscultation no wheezes, rales or rhonchi. No chest wall tenderness is noted on palpation or with deep breathing. HEART: Regular rate and rhythm with faint systolic murmur at the base, no rubs or gallops. S1 and S2 heard. ABDOMEN: Soft, nontender. Bowel sounds are heard. No organomegaly noted. EXTREMITIES: No evidence of peripheral edema and no calf tenderness noted. VASCULAR: Radial and dorsalis pedis pulses palpated, no evidence of clubbing. NEUROLOGIC: Patient is awake, alert and oriented x3. Results 02/04/18 07:55 02/04/18 07:55 Cardiac Enzymes 02/03/18 02/03/18 02/04/18 Range/Units 16:24 22:44 07:55 AST 77 H (14-36) U/L CK-MB (CK-2) <0.2 <0.2 (0.0-2.4) ng/mL Troponin I 0.028 <0.012 (0.000-0.034) ng/mL Lipids 02/04/18 Range/Units 07:55 Triglycerides 81 (<150) mg/dL Cholesterol 126 (<200) mg/dL HDL Cholesterol 44 (40-60) mg/dL CBC 02/03/18 02/04/18 Range/Units 16:24 07:55 WBC 8.2 7.2 (3.8-10.6) k/uL RBC 3.43 L 3.15 L (3.80-5.40) m/uL Hgb 10.4 L 9.2 L (11.4-16.0) gm/dL Hct 31.7 L 30.0 L (34.0-46.0) % Plt Count 206 183 (150-450) k/uL Comprehensive Metabolic Panel 02/04/18 Range/Units 07:55 Sodium 141 (137-145) mmol/L Potassium 3.4 L (3.5-5.1) mmol/L Chloride 110 H (98-107) mmol/L Carbon Dioxide 18 L (22-30) mmol/L BUN 22 H (7-17) mg/dL Creatinine 0.64 (0.52-1.04) mg/dL Glucose 76 (74-99) mg/dL Calcium 8.6 (8.4-10.2) mg/dL AST 77 H (14-36) U/L ALT 67 H (9-52) U/L Alkaline Phosphatase 223 H (38-126) U/L Total Protein 5.1 L (6.3-8.2) g/dL Albumin 2.3 L (3.5-5.0) g/dL Current Medications Generic Name Dose Route Start Last Admin Trade Name Freq PRN Reason Stop Dose Admin Atorvastatin Calcium 40 mg 02/04/18 09:00 02/04/18 09:20 Lipitor PO 40 mg DAILY ANAI Administration Cholecalciferol 2,000 unit 02/04/18 09:00 02/04/18 09:19 Vitamin D3 PO 2,000 unit DAILY ANAI Administration Hydromorphone HCl 0.5 mg 02/03/18 16:01 Dilaudid IVP Q3HR PRN Moderate Pain Sodium Chloride 1,000 mls @ 100 mls/hr 02/04/18 11:15 Saline 0.45% IV .Q10H ANAI Levothyroxine Sodium 100 mcg 02/04/18 06:30 02/04/18 05:52 Synthroid PO Not Given DAILY@0630 ANAI Naloxone HCl 0.2 mg 02/03/18 16:01 Narcan IV Q2M PRN Opioid Reversal Nitroglycerin 0.4 mg 02/03/18 16:06 Nitrostat SUBLINGUAL Q5M PRN Chest Pain Ondansetron HCl 4 mg 02/03/18 16:01 Zofran IVP Q8HR PRN Nausea And Vomiting Pantoprazole Sodium 40 mg 02/03/18 21:00 02/04/18 09:19 Protonix IV 40 mg BID ANAI Administration Intake and Output 02/04/18 02/04/18 02/04/18 06:59 14:59 22:59 Intake Total 1000 Output Total 300 2 Balance -300 998 Intake: Intake, IV Titration 1000 Amount Sodium Chloride 0.9% 1, 1000 000 ml @ 125 mls/hr IV . Q8H [facility] Rx#:[id number] Output: Urine 300 2 Other: Voiding Method Toilet Toilet # Voids 1 Weight 63.1 kg 02/04/18 07:55 02/04/18 07:55 Assessment and Plan Assessment: ASSESSMENT 1. Acute pancreatitis 2. Hematemesis 3. Duodenal adenocarcinoma with recent chemotherapy and radiation 4. Status post EGD 5. Febrile illness 6. Hypertension 7. Dyslipidemia 8. T-wave inversions on EKG with mild troponin leak 9. Mild aortic stenosis 10. Mild pulmonary hypertension PLAN Obtain 2-D echocardiogram and Doppler study to assess cardiac structure and function. Repeat EKG in the morning. Her mild troponin leak may be secondary to recent EGD procedure. Not indicative of an acute coronary event. Continue his ongoing medical management of hematemesis and febrile illness. We will continue to follow. Thank you kindly for this consultation. Nurse Practitioner note has been reviewed, I agree with a documented findings and plan of care. Patient was seen and examined.
[2018-02-04] MEDS: SODIUM CHLORIDE 0.45% 1,000 ML IV SCH ×2 (23:17→23:37)
--- NOTE | 2018-02-05 00:33 | P.PN ---
Subjective Progress Note Date: 02/04/18 Principal diagnosis: Acute pancreatitis Patient is a 73-year-old female with a known history of duodenal cancer status post chemotherapy in August 2017 and radiation in October 2017, hypothyroidism and multiple other medical problems came to ER with complaints of nausea and multiple emesis with streaks of blood in it and epigastric abdominal discomfort. She also has some nonspecific abdominal discomfort with this she also has some lightheadedness and dizziness with it. She denies any overt fevers chills or sweats. Of note she did have a upper endoscopy done 2 days ago at [facility]. No complaints of chest pain or shortness of breath. antral gastritis and colonic polyps based on the most recent EGD and colonoscopy done at [facility] 02/17/2017, positive H. pylori, Patient was found to be febrile with T-max 100.7 Troponin 0.037 Lipase 1595 The abdominal x-ray showed correlate for enteritis 02/04/2018 Patient's abdominal pain is much improved now. No complaints of chest pain or shortness of breath. Patient was started on a clear liquid diet and advance as tolerated. Lipase level is trending down as well as liver enzymes which could be due to recent procedure with EGD and possible biopsy. Will titrate up in records from [facility]. Otherwise family wants to talk to oncology Dr. Boyd regarding her Further plan. Patient is supposed to follow with [facility] on next Monday. Patient has been afebrile now. Patient was seen by cardiology and gastroenterology. Discussed with her at bedside in detail. Complete review of systems negative except the above Current medications reviewed Objective - Vital Signs Vital signs: Vital Signs Temp 96.7 F L 02/04/18 11:30 Pulse 102 H 02/04/18 11:30 Resp 18 02/04/18 11:30 BP 107/68 02/04/18 11:30 Pulse Ox 98 02/04/18 11:30 Intake & Output 02/03/18 02/04/18 02/04/18 18:59 06:59 18:59 Intake Total 1000 Output Total 300 2 Balance -300 998 Weight 63.503 kg 63.1 kg Intake: Intake, IV Titration 1000 Amount Sodium Chloride 0.9% 1, 1000 000 ml @ 125 mls/hr IV . Q8H [facility] Rx#:[id number] Output: Urine 300 2 Other: Voiding Method Toilet Toilet # Voids 1 - Exam PHYSICAL EXAMINATION: Patient is lying in the bed comfortably, no acute distress, awake alert and oriented.. HEENT: Normocephalic. Neck is supple. Pupils reactive. Nostrils clear. Oral cavity is moist. Ears reveal no drainage. Neck reveals no JVD, carotid bruits, or thyromegaly. CHEST EXAMINATION: Trachea is central. Symmetrical expansion. Lung olivera clear to auscultation and percussion. CARDIAC: Normal S1, S2 with no gallops. No murmurs ABDOMEN: Soft. Bowel sounds normal. No organomegaly. No abdominal bruits. Extremities: reveal no edema. No clubbing or cyanosis Neurologically awake, alert, oriented x3 with well-coordinated movements. No focal deficits noted Skin: No rash or skin lesions. Psychiatric: Coperative. Nonsuicidal Musculoskeletal: No joint swelling or deformity. Normal range of motion. - Labs CBC & Chem 7: 02/04/18 07:55 02/04/18 07:55 Labs: Abnormal Lab Results - Last 24 Hours (Table) 02/03/18 02/03/18 02/03/18 Range/Units 16:24 16:24 16:24 RBC 3.43 L (3.80-5.40) m/uL Hgb 10.4 L (11.4-16.0) gm/dL Hct 31.7 L (34.0-46.0) % MCHC (31.0-37.0) g/dL Lymphocytes # 0.4 L (1.0-4.8) k/uL Potassium (3.5-5.1) mmol/L Chloride (98-107) mmol/L Carbon Dioxide (22-30) mmol/L BUN (7-17) mg/dL Total Bilirubin (0.2-1.3) mg/dL AST (14-36) U/L ALT (9-52) U/L Alkaline Phosphatase (38-126) U/L Total Creatine Kinase <20 L (30-135) U/L Total Protein (6.3-8.2) g/dL Albumin (3.5-5.0) g/dL Urine Appearance Cloudy H (Clear) Urine Protein 2+ H (Negative) Urine Ketones 1+ H (Negative) Urine Bilirubin 2+ H (Negative) Ur Leukocyte Esterase Trace H (Negative) Urine Bacteria Rare H (None) /hpf Urine Mucus Many H (None) /hpf 02/04/18 02/04/18 Range/Units 07:55 07:55 RBC 3.15 L (3.80-5.40) m/uL Hgb 9.2 L (11.4-16.0) gm/dL Hct 30.0 L (34.0-46.0) % MCHC 30.6 L (31.0-37.0) g/dL Lymphocytes # 0.3 L (1.0-4.8) k/uL Potassium 3.4 L (3.5-5.1) mmol/L Chloride 110 H (98-107) mmol/L Carbon Dioxide 18 L (22-30) mmol/L BUN 22 H (7-17) mg/dL Total Bilirubin 1.7 H (0.2-1.3) mg/dL AST 77 H (14-36) U/L ALT 67 H (9-52) U/L Alkaline Phosphatase 223 H (38-126) U/L Total Creatine Kinase (30-135) U/L Total Protein 5.1 L (6.3-8.2) g/dL Albumin 2.3 L (3.5-5.0) g/dL Urine Appearance (Clear) Urine Protein (Negative) Urine Ketones (Negative) Urine Bilirubin (Negative) Ur Leukocyte Esterase (Negative) Urine Bacteria (None) /hpf Urine Mucus (None) /hpf Microbiology - Last 24 Hours (Table) 02/03/18 12:22 Blood Culture - Preliminary Blood No Growth after 24 hours Assessment and Plan Assessment: Abdominal pain secondary to acute pancreatitis with elevated lipase level. likely related to recent procedure EGD at [facility] 2 days ago Nausea vomiting and hematemesis possible upper GI bleed. Hemoglobin stable Possible acute blood loss anemia hemoglobin 10.8--10..4 now Elevated liver enzymes. Normalized now. Likely due to recent procedure. Seen by cardiology. ileus . Improved clinically History of antral gastritis Duodenal cancer status post chemotherapy and radiation in August 2017 and November 2017 History of PE status post IVC filter Hypertension Hyperlipidemia Hypothyroidism History of H. pylori DVT prophylaxis with SCDs Plan: Patient will be continued on IV hydration and Protonix IV. Started on clear liquid diet. GI and cardiology has seen the patient. Continue to monitor H&H and follow closely. Follow-up repeat CMP tomorrow. Continue with current management and further recommendations based on the clinical course. Prognosis is guarded. Time with Patient: Greater than 30
[2018-02-05] MEDS: ONDANSETRON 4 MG/2 ML VIAL IVP PRN ×3 (05:56→21:57)
[2018-02-05] MEDS: LEVOTHYROXINE 100 MCG TAB PO SCH (05:56)
[2018-02-05 07:38] LABS: ALT 49 U/L (9-52); AST 37 U/L (14-36); Albumin 2.2 g/dL (3.5-5.0); Alkaline Phosphatase 195 U/L (38-126); Anion Gap 14 mmol/L; Blood Urea Nitrogen 20 mg/dL (7-17); Calcium 8.9 mg/dL (8.4-10.2); Carbon Dioxide 19 mmol/L (22-30); Chloride 107 mmol/L (98-107); Glucose 79 mg/dL (74-99); Potassium 3.3 mmol/L (3.5-5.1); Sodium 140 mmol/L (137-145); Total Bilirubin 1.2 mg/dL (0.2-1.3); Total Protein 5.1 g/dL (6.3-8.2)
[2018-02-05] MEDS: ATORVASTATIN 40 MG TAB PO SCH (08:40)
[2018-02-05] MEDS: PANTOPRAZOLE 40 MG/10 ML VIAL IV SCH ×2 (08:40→21:54)
[2018-02-05] MEDS: CHOLECALCIFEROL 1,000 UNIT TAB PO SCH (08:40)
[2018-02-05] MEDS: SODIUM CHLORIDE 0.45% 1,000 ML IV SCH ×2 (08:40→17:47)
[2018-02-05] MEDS ORDERED: POTASSIUM CHLORIDE ER 20 MEQ TAB.ER PO STA (08:56)
[2018-02-05 08:58] VITALS: RESP 18
[2018-02-05] MEDS ORDERED: DILTIAZEM 50 MG in SODIUM CHLORIDE 0.9% 40 ML IV SCH (13:30)
[2018-02-05] MEDS ORDERED: Potassium Replacement Protocol 1 EACH MISC MISCELLANE PRN (15:25)
--- NOTE | 2018-02-05 15:38 | P.PN ---
Subjective Progress Note Date: 02/05/18 Mrs. Baltazar is a pleasant 73-year-old female past medical history significant for duodenal adenocarcinoma, hyperlipidemia, hypertension, chronic pancreatitis and history of PE. We have been asked to see her in consultation secondary to mild troponin elevation. She denies symptoms of chest pain, shortness of breath, dizziness, palpitations or diaphoresis. Per her was at the bedside she underwent a GI procedure last week at [facility] he is unsure of exactly what procedure performed his description it sounds like an EGD. Yesterday morning she started vomiting which she describes as a dark red blood. Acute abdominal series reveals possible ileus. She has also been seen in consultation by GI services. EKG on arrival reveals sinus mechanism with septal T-wave inversions. Chest x-ray is negative for an acute cardiopulmonary process. Laboratory data reviewed, hemoglobin 9.2, platelets 183 , potassium 3.4, sodium 141, magnesium 1.8, crit AST 77, ALP 67, alkaline phosphatase 223, initial cardiac enzyme 0.037, 0.028 and less than 0.12, lipase 1595, creatinine 0.64.Current cardiac medications include atorvastatin 40 mg daily and potassium supplementation twice a day. She also takes magnesium supplementation, Synthroid, ferrous sulfate and vitamin D.Most recent echocardiogram reveals preserved left ventricular systolic function with ejection fraction 60-65%, mild aortic valve stenosis with a mean gradient of 8.36 mmHg, borderline pulmonary hypertension with an RVSP 33.3 mmHg. This was obtained and April 2017. 02/05/2018 Patient was seen and examined this morning, she did go into A. fib with RVR. Was initiated on IV Cardizem drip. An Echocardiogram with Doppler study was performed yesterday and is yet pending. Blood pressure 154/80, heart rate in the 120s, sodium 140, potassium 3.3 which was replaced, BUN 20, creatinine 0.6. Objective - Vital Signs Vital signs: Vital Signs Temp 98.8 F 02/05/18 11:00 Pulse 60 02/05/18 11:00 Resp 18 02/05/18 11:00 BP 161/88 02/05/18 11:00 Pulse Ox 95 02/05/18 11:00 Intake & Output 02/04/18 02/05/18 02/05/18 18:59 06:59 18:59 Intake Total 1240 500 Output Total 2 200 Balance 1238 -200 500 Weight 64.5 kg Intake: Intake, IV Titration 1000 500 Amount Sodium Chloride 0.45% 1, 500 000 ml @ 100 mls/hr IV . Q10H [facility] Rx#:[id number] Sodium Chloride 0.9% 1, 1000 000 ml @ 125 mls/hr IV . Q8H [facility] Rx#:[id number] Oral 240 0 Output: Urine 2 200 Other: Voiding Method Toilet Toilet Toilet # Voids 1 1 # Bowel Movements 0 - Exam PHYSICAL EXAMINATION: HEENT: Head is atraumatic, normocephalic. Pupils equal, round. Neck is supple. There is no elevated jugular venous pressure. HEART EXAMINATION: Heart S1 and S2 irregularly irregular CHEST EXAMINATION: Lungs are clear to auscultation and precussion. No chest wall tenderness is noted on palpation or with deep breathing. ABDOMEN: Soft, nontender. Bowel sounds are heard. No organomegaly noted. EXTREMITIES: 2+ peripheral pulses with no evidence of peripheral edema and no calf tenderness noted. NEUROLOGIC patient is awake, alert and oriented -3. . - Labs CBC & Chem 7: 02/04/18 07:55 02/05/18 14:03 Labs: Abnormal Lab Results - Last 24 Hours (Table) 02/05/18 02/05/18 Range/Units 06:47 14:03 Potassium 3.3 L 3.3 L (3.5-5.1) mmol/L Carbon Dioxide 19 L (22-30) mmol/L BUN 20 H (7-17) mg/dL AST 37 H (14-36) U/L Alkaline Phosphatase 195 H (38-126) U/L Total Protein 5.1 L (6.3-8.2) g/dL Albumin 2.2 L (3.5-5.0) g/dL Microbiology - Last 24 Hours (Table) 02/03/18 12:22 Blood Culture - Preliminary Blood No Growth after 48 hours Assessment and Plan Plan: Assessment and plan #1 acute pancreatitis with a duodenal adenocarcinoma and recent chemotherapy and radiation #2 hypertension #3 hyperlipidemia #4 mild troponin abnormality with T wave inversion noted on the EKG, echocardiogram with Doppler study remains pending. # 5 paroxysmal atrial fibrillation Plan We will await the results of the echocardiogram with Doppler study. At this time we will continue the IV Cardizem drip. We will not initiate anticoagulation at this time. Further recommendations to follow. DNP note has been reviewed, I agree with a documented findings and plan of care. Patient was seen and examined.
[2018-02-05] MEDS: POTASSIUM CHLORIDE ER 20 MEQ TAB.ER PO SCH ×4 (15:44→23:35)
--- NOTE | 2018-02-05 16:05 | XR ---
Abdomen HISTORY: Distention Frontal view of the abdomen submitted on 2 images, correlation to prior 02/03/2018 Lung bases are clear. Inferior vena cava filter is in place. There are gas-filled loops of bowel pres ent without pneumoperitoneum or evident bowel obstruction. Increased density over the central abdomen could be indicative of underlying ascites. IMPRESSION: Correlate to exclude ascites, findings could be technical. Consider ileus or enteritis, f ollow-up as indicated if bowel obstruction is suspected clinically.
--- NOTE | 2018-02-05 18:42 | ECHOF ---
Referral Reason:Chest pain and cardiomyopathy MEASUREMENTS -------- HEIGHT: 152.4 cm WEIGHT: 64.4 kg BP: 178/87 RVIDd: 2.7 cm (< 3.3) IVSd: 1.2 cm (0.6 - 1.1) LVIDd: 4.2 cm (3.9 - 5.3) LVPWd: 1.1 cm (0.6 - 1.1) IVSs: 1.5 cm LVIDs: 2.8 cm LVPWs: 1.4 cm LA Diam: 3.7 cm (2.7 - 3.8) LAESV Index (A-L): 44.28 ml/m Ao Diam: 3.0 cm (2.0 - 3.7) AV Cusp: 2.2 cm (1.5 - 2.6) LA Diam: 4.3 cm (2.7 - 3.8) MV EXCURSION: 15.965 mm (> 18.000) MV EF SLOPE: 67 mm/s (70 - 150) EPSS: 0.2 cm MV E Rodo: 0.96 m/s MV DecT: 207 ms MV A Rodo: 1.17 m/s MV E/A Ratio: 0.82 RAP: 5.00 mmHg RVSP: 36.16 mmHg FINDINGS -------- Sinus rhythm. This was a technically good study. The left ventricular size is normal. There is borderline concentric left ventricular hypertrophy. Overall left ventricular systolic function is normal with, an EF between 55 - 60 %. The right ventricle is normal in size. LA is severely dilated >40 ml/m2 The right atrial size is normal. There is mild aortic valve sclerosis. There is no evidence of aortic regurgitation. Mild mitral annular calcification present. Mild mitral regurgitation is present. Mild tricuspid regurgitation present. There is mild pulmonary hypertension. The right ventricular systolic pressure, as measured by Doppler, is 36.16mmHg. Trace/mild (physiologic) pulmonic regurgitation. There is no pericardial effusion. CONCLUSIONS -------- 1. The left ventricular size is normal. 2. There is borderline concentric left ventricular hypertrophy. 3. Overall left ventricular systolic function is normal with, an EF between 55 - 60 %. 4. LA is severely dilated >40 ml/m2 5. The right atrial size is normal. 6. There is mild aortic valve sclerosis. 7. Mild mitral annular calcification present. 8. Mild mitral regurgitation is present. 9. Mild tricuspid regurgitation present. 10. There is mild pulmonary hypertension. 11. The right ventricular systolic pressure, as measured by Doppler, is 36.16mmHg. 12. Trace/mild (physiologic) pulmonic regurgitation. 13. There is no pericardial effusion. STUNT DRIVER: Josy Betancur RDCS
--- NOTE | 2018-02-05 19:18 | P.CONS ---
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 Boyd who was initially seen by him for risk assessment for development of breast cancer in 2011 due to history of bilateral breast biopsies, mastitis and fibrocystic disease. No increased risk identified. She was then seen for a new issue in 05/04. Presented with progressive anemia over the past 3-4 months,workup consistent with iron deficiency, EGD/colonoscopy was negative other than H pylori gastritis, treated for both but, continued to be anemic, on 04/13/17 she was admitted to the hospital due to dizziness and a fall resulting in fracture of her left ankle, she was again anemic, hemoglobin was in the low 7 range. Colonoscopy showed bleeding in the duodenum/proximal jejunum, enteroscopy with Dr. Guidry on 04/19/17 showed an irregular mass in the duodenal sweep, biopsy was positive for adenocarcinoma, staging CT CAP 04/22/17, no definite evidence of metastatic disease, pt developed a pulmonary embolus, transferred to [facility], IVC filter placed. She was evaluated by GI surgery and was not felt to be a surgical candidate at that time. She was discharged to [facility] where she underwent subacute rehab, first office visit on 05/19/17, started neoadjuvant FOLFOX , dose was reduced after cycle 1 due to side effects, neulasta was added with cycle 2, she completed 6 cycles on 09/15/17, PET showed ADARSH, she was referred for radiation, admitted to [facility] in early 11/05 for persistent nausea, vomiting and dehydration, repeat endoscopy, showed no obstruction, near complete resolution of the mass, small area of irregularity in the mucosa, biopsy was positive. Plan was evaluation with surgical oncology at [facility]. Patient just had the endoscopy procedures 2 days ago, she does not know the results, the notes are not available at this time. Post-procedure patient has had progressive GI upset, ultimately hematemesis, patient denies fever, no nausea or vomiting today, she does have upper quadrant abdominal iscomfort, denies shortness of breath, palpitations, blood in the urine, she states a normal consistency and brown color bowel movement today, she is ambulatory, she is denying uncontrolled pain. Review of Systems 14 point review of systems is as stated in HPI Past Medical History Past Medical History: Cancer, Hyperlipidemia, Hypertension, Pulmonary Embolus ( PE), Syncope, Thyroid Disorder Additional Past Medical History / Comment(s): Chronic anemia, antral gastritis and colonic polyps based on the most recent EGD and colonoscopy done at [facility] 02/17/2017, positive H. pylori, hypertension, hyperlipidemia , hypothyroidism pulmonary embolism, pleural effusions,uti colon cancer starts radation on oct, completed 6 chemo sesions sep 13 2017. History of Any Multi-Drug Resistant Organisms: None Reported Past Surgical History: Hysterectomy, Tonsillectomy Additional Past Surgical History / Comment(s): ivc filter, rt mediport, partial hysterectomy, breast bx-neg Past Anesthesia/Blood Transfusion Reactions: No Reported Reaction Additional Past Anesthesia/Blood Transfusion Reaction / Comm: blood transfuison- no reaction Past Psychological History: No Psychological Hx Reported Smoking Status: Never smoker Past Alcohol Use History: None Reported Past Drug Use History: None Reported - Past Family History Mother Family Medical History: No Reported History Additional Family Medical History / Comment(s): " from old age" Father Family Medical History: CVA/TIA Additional Family Medical History / Comment(s): emphysema Medications and Allergies Home Medications Medication Instructions Recorded Confirmed Type Atorvastatin [Lipitor] 40 mg PO DAILY 03/10/16 02/03/18 History Levothyroxine Sodium [Synthroid] 100 mcg PO DAILY 03/10/16 02/03/18 History Ferrous Sulfate [Iron (65 MG 325 mg PO DAILY 04/13/17 02/03/18 History Elemental)] Potassium Chloride ER [K-Dur 20] 20 meq PO BID 10/17/17 02/03/18 History Cholecalciferol (Vitamin D3) 2,000 unit PO DAILY 02/03/18 02/03/18 History [Vitamin D3] Magnesium Oxide [Mag-Ox] 400 mg PO BID 02/03/18 02/03/18 History Allergies Allergy/AdvReac Type Severity Reaction Status Date / Time No Known Allergies Allergy Verified 02/03/18 15:54 Physical Exam Vitals: Vital Signs Temp Pulse Resp BP Pulse Ox 02/05/18 15:00 99.9 F H 78 18 150/78 95 02/05/18 11:00 98.8 F 60 18 161/88 95 02/05/18 08:40 97.4 F L 73 18 155/85 98 02/05/18 03:34 62 19 02/05/18 03:32 98.6 F 62 19 178/87 95 02/05/18 00:00 100.0 F H 68 19 146/77 94 L 02/04/18 20:00 99.0 F 62 18 144/73 95 Intake and Output 02/05/18 02/05/18 02/05/18 06:59 14:59 22:59 Intake Total 700 300 Output Total 200 Balance -200 700 300 Intake: Intake, IV Titration 500 Amount Sodium Chloride 0.45% 1, 500 000 ml @ 100 mls/hr IV . Q10H [facility] Rx#:[id number] Oral 200 300 Output: Urine 200 Other: Voiding Method Toilet Toilet Toilet # Voids 1 # Bowel Movements 0 Weight 64.5 kg - Constitutional General appearance: average body habitus, cooperative, no acute distress - EENT Eyes: anicteric sclerae, normal appearance ENT: hard of hearing, normal oropharynx - Neck Neck: no lymphadenopathy - Respiratory Respiratory: bilateral: CTA - Cardiovascular Heart sounds: normal: S1, S2 Abnormal Heart Sounds: systolic murmur leg Peripheral Edema: bilateral: None - Gastrointestinal General gastrointestinal: soft Localized gastrointestinal: tender: LUQ, LLQ, suprabubic - Neurologic no focal deficits - Musculoskeletal Musculoskeletal: strength equal bilaterally - Psychiatric Psychiatric: A&O x's 3, appropriate affect, intact judgment & insight Results CBC & Chem 7: 02/04/18 07:55 02/05/18 14:03 Labs: Abnormal Lab Results - Last 24 Hours (Table) 02/05/18 02/05/18 Range/Units 06:47 14:03 Potassium 3.3 L 3.3 L (3.5-5.1) mmol/L Carbon Dioxide 19 L (22-30) mmol/L BUN 20 H (7-17) mg/dL AST 37 H (14-36) U/L Alkaline Phosphatase 195 H (38-126) U/L Total Protein 5.1 L (6.3-8.2) g/dL Albumin 2.2 L (3.5-5.0) g/dL Microbiology - Last 24 Hours (Table) 02/03/18 12:22 Blood Culture - Preliminary Blood No Growth after 48 hours Abdominal x-ray: report reviewed Assessment and Plan (1) History of duodenal cancer Narrative/Plan: Patient just had her GI [facility], nothing on the chart yet, nothing at the office yet either. Patient's due to meet with Dr. Boyd at the end of next week for ongoing follow-up plan and results of the upper GI as pt is not sure of results either. Current Visit: Yes Status: Acute Priority: Medium Code(s): Z85.068 - PERSONAL HISTORY OF MALIGNANT NEOPLASM OF SMALL INTESTINE SNOMED Code(s): 388257726839997 (2) Acute pancreatitis Narrative/Plan: Question of patient passed a gallstone...Patient seems to be improving with conservative management, she is sipping water and does have an appetite, lipase in the a.m. Current Visit: Yes Status: Acute Priority: High Code(s): K85.90 - ACUTE PANCREATITIS WITHOUT NECROSIS OR INFECTION, UNSP SNOMED Code(s): 920142520 (3) Acute blood loss anemia Narrative/Plan: Considering hematemesis patient's hemoglobin is stable, recheck in a.m. Current Visit: Yes Status: Acute Priority: High Code(s): D62 - ACUTE POSTHEMORRHAGIC ANEMIA SNOMED Code(s): 178992745 (4) Chronic anemia Narrative/Plan: No acute intervention, previous workup suggestive of anemia from inflammation. Current Visit: Yes Status: Chronic Priority: Medium Code(s): D64.9 - ANEMIA, UNSPECIFIED SNOMED Code(s): 938884092
[2018-02-05] MEDS ORDERED: ACETAMINOPHEN TAB 500 MG TAB PO STA (21:40)
--- NOTE | 2018-02-06 02:35 | P.PN ---
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 She also has some nonspecific abdominal discomfort with this she also has some lightheadedness and dizziness with it. She denies any overt fevers chills or sweats. Of note she did have a upper endoscopy done 2 days ago at [facility]. No complaints of chest pain or shortness of breath. antral gastritis and colonic polyps based on the most recent EGD and colonoscopy done at [facility] 02/17/2017, positive H. pylori, Patient was found to be febrile with T-max 100.7 Troponin 0.037 Lipase 1595 The abdominal x-ray showed correlate for enteritis 02/04/2018 Patient's abdominal pain is much improved now. No complaints of chest pain or shortness of breath. Patient was started on a clear liquid diet and advance as tolerated. Lipase level is trending down as well as liver enzymes which could be due to recent procedure with EGD and possible biopsy. Will titrate up in records from [facility]. Otherwise family wants to talk to oncology Dr. Boyd regarding her Further plan. Patient is supposed to follow with [facility] on next Monday. Patient has been afebrile now. Patient was seen by cardiology and gastroenterology. Discussed with her at bedside in detail. 02/05/2018 Patient is still complaining of abdominal discomfort today. X-ray of the abdomen ordered. Patient went into A. fib with RVR this morning. Currently on Cardizem drip. Liver enzymes continues to improve. No fever no chills. No nausea no vomiting. No cough or sputum production. Complete review of systems negative except the above Current medications reviewed Objective - Vital Signs Vital signs: Vital Signs Temp 99.9 F H 02/05/18 15:00 Pulse 78 02/05/18 15:00 Resp 18 02/05/18 15:00 BP 150/78 02/05/18 15:00 Pulse Ox 95 02/05/18 15:00 Intake & Output 02/04/18 02/05/18 02/05/18 18:59 06:59 18:59 Intake Total 1240 700 Output Total 2 200 Balance 1238 -200 700 Weight 64.5 kg Intake: Intake, IV Titration 1000 500 Amount Sodium Chloride 0.45% 1, 500 000 ml @ 100 mls/hr IV . Q10H [facility] Rx#:[id number] Sodium Chloride 0.9% 1, 1000 000 ml @ 125 mls/hr IV . Q8H [facility] Rx#:[id number] Oral 240 200 Output: Urine 2 200 Other: Voiding Method Toilet Toilet Toilet # Voids 1 1 # Bowel Movements 0 - Exam PHYSICAL EXAMINATION: Patient is lying in the bed comfortably, no acute distress, awake alert and oriented.. HEENT: Normocephalic. Neck is supple. Pupils reactive. Nostrils clear. Oral cavity is moist. Ears reveal no drainage. Neck reveals no JVD, carotid bruits, or thyromegaly. CHEST EXAMINATION: Trachea is central. Symmetrical expansion. Lung olivera clear to auscultation and percussion. CARDIAC: Normal S1, S2 with no gallops. No murmurs ABDOMEN: Soft. Distended. Bowel sounds normal. No organomegaly. No abdominal bruits. Extremities: reveal no edema. No clubbing or cyanosis Neurologically awake, alert, oriented x3 with well-coordinated movements. No focal deficits noted Skin: No rash or skin lesions. Psychiatric: Coperative. Nonsuicidal Musculoskeletal: No joint swelling or deformity. Normal range of motion. - Labs CBC & Chem 7: 02/04/18 07:55 02/06/18 00:24 Labs: Abnormal Lab Results - Last 24 Hours (Table) 02/05/18 02/05/18 Range/Units 06:47 14:03 Potassium 3.3 L 3.3 L (3.5-5.1) mmol/L Carbon Dioxide 19 L (22-30) mmol/L BUN 20 H (7-17) mg/dL AST 37 H (14-36) U/L Alkaline Phosphatase 195 H (38-126) U/L Total Protein 5.1 L (6.3-8.2) g/dL Albumin 2.2 L (3.5-5.0) g/dL Microbiology - Last 24 Hours (Table) 02/03/18 12:22 Blood Culture - Preliminary Blood No Growth after 48 hours Assessment and Plan Assessment: Atrial fibrillation with rapid ventricular rate. On Cardizem drip. No anticoagulation due to GI bleed. Abdominal pain secondary to acute pancreatitis with elevated lipase level. likely related to recent procedure. Improving Abdominal distention. Likely due to ileus EGD at [facility] 2 days ago Nausea vomiting and hematemesis possible upper GI bleed. Hemoglobin stable Possible acute blood loss anemia hemoglobin 10.8--10..4 now Elevated liver enzymes. Normalized now. Likely due to recent procedure. 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 pylori DVT prophylaxis with SCDs Plan: Patient will be continued on IV hydration and Protonix IV. Started on clear liquid diet. GI and cardiology has seen the patient. Replace potassium. Continue to monitor H&H and follow closely. Follow-up repeat CMP tomorrow. Continue with current management and further recommendations based on the clinical course. Prognosis is guarded. Time with Patient: Greater than 30
[2018-02-06] MEDS: POTASSIUM CHLORIDE ER 20 MEQ TAB.ER PO SCH ×2 (03:01→04:06)
[2018-02-06] MEDS: MAGNESIUM SULFATE-D5W PMX 1 GM in DEXTROSE/WATER 1 100ML.BAG IVPB SCH ×2 (03:01→04:06)
[2018-02-06] MEDS: SODIUM CHLORIDE 0.45% 1,000 ML IV SCH ×2 (03:02→12:04)
[2018-02-06 06:36] LABS: HCT 29.1 % (34.0-46.0); HGB 9.4 gm/dL (11.4-16.0); MCH 29.8 pg (25.0-35.0); MCHC 32.2 g/dL (31.0-37.0); MCV 92.6 fL (80.0-100.0); Mean Platelet Volume 7.2; Platelet Count 196 k/uL (150-450); RBC 3.15 m/uL (3.80-5.40); RDW 15.4 % (11.5-15.5); WBC 7.8 k/uL (3.8-10.6)
[2018-02-06] MEDS: LEVOTHYROXINE 100 MCG TAB PO SCH (06:58)
[2018-02-06] MEDS: ONDANSETRON 4 MG/2 ML VIAL IVP PRN (07:00)
[2018-02-06] MEDS: CHOLECALCIFEROL 1,000 UNIT TAB PO SCH (08:16)
[2018-02-06] MEDS: ATORVASTATIN 40 MG TAB PO SCH (08:16)
[2018-02-06] MEDS: PANTOPRAZOLE 40 MG/10 ML VIAL IV SCH (08:17)
[2018-02-06 08:54] LABS: Anion Gap 11 mmol/L; Blood Urea Nitrogen 15 mg/dL (7-17); Calcium 8.8 mg/dL (8.4-10.2); Carbon Dioxide 18 mmol/L (22-30); Chloride 107 mmol/L (98-107); Glucose 87 mg/dL (74-99); Magnesium 2.3 mg/dL (1.6-2.3); Potassium 3.9 mmol/L (3.5-5.1); Sodium 136 mmol/L (137-145)
--- NOTE | 2018-02-06 10:36 | P.PN ---
Subjective Progress Note Date: 02/06/18 Principal diagnosis: Acute upper GI bleed Denies hematemesis hematochezia melena. Denies abdominal pain. Afebrile. Heme ago been stable 9.4. Objective - Vital Signs Vital signs: Vital Signs Temp 97.9 F 02/06/18 08:17 Pulse 75 02/06/18 08:17 Resp 18 02/06/18 08:17 BP 141/78 02/06/18 08:17 Pulse Ox 98 02/06/18 08:17 Intake & Output 02/05/18 02/06/18 02/06/18 18:59 06:59 18:59 Intake Total 1000 800 Balance 1000 800 Weight 66 kg Intake: Intake, IV Titration 500 800 Amount Sodium Chloride 0.45% 1, 500 800 000 ml @ 100 mls/hr IV . Q10H [facility] Rx#:[id number] Oral 500 Other: Voiding Method Toilet Toilet Toilet # Voids 0 - Exam General appearance: The patient is alert, oriented, in no acute distress. HET: Head is normocephalic and atraumatic. Pupils are equal and reactive. Oropharynx is clear without lesions. Neck: Supple without lymphadenopathy. Trachea midline. Heart: S1 S2. Regular rate and rhythm. Lungs: No crackles or wheezes are heard. Abdomen: Soft, nontender, nondistended with bowel sounds. No peritoneal signs. No palpable organomegaly or masses. Extremities: Normal skin color and turgor. No cyanosis, rash, ulceration, clubbing, or edema. Radial and pedal pulses are 2/4 bilaterally. Neurological: No focal deficits. Strength and sensation are grossly intact. - Labs CBC & Chem 7: 02/06/18 06:21 02/06/18 06:21 Labs: Abnormal Lab Results - Last 24 Hours (Table) 02/05/18 02/05/18 02/06/18 Range/Units 14:03 20:12 00:24 RBC (3.80-5.40) m/uL Hgb (11.4-16.0) gm/dL Hct (34.0-46.0) % Sodium (137-145) mmol/L Potassium 3.3 L 3.3 L 3.3 L (3.5-5.1) mmol/L Carbon Dioxide (22-30) mmol/L 02/06/18 02/06/18 Range/Units 06:21 06:21 RBC 3.15 L (3.80-5.40) m/uL Hgb 9.4 L (11.4-16.0) gm/dL Hct 29.1 L (34.0-46.0) % Sodium 136 L (137-145) mmol/L Potassium (3.5-5.1) mmol/L Carbon Dioxide 18 L (22-30) mmol/L Microbiology - Last 24 Hours (Table) 02/03/18 12:22 Blood Culture - Preliminary Blood No Growth after 48 hours Assessment and Plan Plan: Impression: 1. Acute abdominal pain secondary to acute pancreatitis. Pancreatic enzymes improved. 2. Upper GI bleed hematemesis resolved status post EGD/EUS 4 days ago at [facility]. 3. History of duodenal adenocarcinoma status post chemoradiation. 4. Acute blood loss anemia superimposed on chronic anemia. Recommendations: 1. Low residue diet. Continue with PPI Protonix 40 mg daily. 2. Follow-up with [facility] specialist as advised. 3. Discharge per medicine. Follow as needed. Assessment and on a care discussed with Dr. Guidry
--- NOTE | 2018-02-06 11:10 | P.PN ---
Subjective Progress Note Date: 02/06/18 Principal diagnosis: Abdominal pain, hematoemesis Patient seen today in follow-up, states 1 episode of vomiting last night, all fluid, no blood, her abdominal pain is less intense today, no bowel movement today. Objective - Vital Signs Vital signs: Vital Signs Temp 97.9 F 02/06/18 08:17 Pulse 75 02/06/18 08:17 Resp 18 02/06/18 08:17 BP 141/78 02/06/18 08:17 Pulse Ox 98 02/06/18 08:17 Intake & Output 02/05/18 02/06/18 02/06/18 18:59 06:59 18:59 Intake Total 1000 800 Balance 1000 800 Weight 66 kg Intake: Intake, IV Titration 500 800 Amount Sodium Chloride 0.45% 1, 500 800 000 ml @ 100 mls/hr IV . Q10H [facility] Rx#:[id number] Oral 500 Other: Voiding Method Toilet Toilet Toilet # Voids 0 - Constitutional General appearance: Present: average body habitus, cooperative, no acute distress - EENT ENT: Present: hearing grossly normal - Gastrointestinal Localized gastrointestinal: tender: LUQ (Much less intense, deeper palpation was tolerated), epigastric periumbilical (Much less intense, deeper palpation tolerated), suprabubic (Question midline hernia) - Integumentary Integumentary: Present: pale - Neurologic Neurologic: Present: CNII-XII intact - Musculoskeletal Musculoskeletal: Present: generalized weakness - Psychiatric Psychiatric: Present: A&O x's 3, appropriate affect, intact judgment & insight - Labs CBC & Chem 7: 02/06/18 06:21 02/06/18 06:21 Labs: Abnormal Lab Results - Last 24 Hours (Table) 02/05/18 02/05/18 02/06/18 Range/Units 14:03 20:12 00:24 RBC (3.80-5.40) m/uL Hgb (11.4-16.0) gm/dL Hct (34.0-46.0) % Sodium (137-145) mmol/L Potassium 3.3 L 3.3 L 3.3 L (3.5-5.1) mmol/L Carbon Dioxide (22-30) mmol/L 02/06/18 02/06/18 Range/Units 06:21 06:21 RBC 3.15 L (3.80-5.40) m/uL Hgb 9.4 L (11.4-16.0) gm/dL Hct 29.1 L (34.0-46.0) % Sodium 136 L (137-145) mmol/L Potassium (3.5-5.1) mmol/L Carbon Dioxide 18 L (22-30) mmol/L Microbiology - Last 24 Hours (Table) 02/03/18 12:22 Blood Culture - Preliminary Blood No Growth after 48 hours Assessment and Plan (1) History of duodenal cancer Narrative/Plan: Still pending [facility] endoscopy results and recommendations. Patient does have a follow-up already scheduled with Dr. Boyd for next week, this was for results and plan of care. Patient will keep this appointment. Current Visit: Yes Status: Acute Priority: Medium Code(s): Z85.068 - PERSONAL HISTORY OF MALIGNANT NEOPLASM OF SMALL INTESTINE SNOMED Code(s): 219027347866162 (2) Acute pancreatitis Narrative/Plan: Lipase improved, patient less symptomatic Current Visit: Yes Status: Acute Priority: High Code(s): K85.90 - ACUTE PANCREATITIS WITHOUT NECROSIS OR INFECTION, UNSP SNOMED Code(s): 450192435 (3) Acute blood loss anemia Narrative/Plan: Hemoglobin stable, no acute intervention Current Visit: Yes Status: Acute Priority: High Code(s): D62 - ACUTE POSTHEMORRHAGIC ANEMIA SNOMED Code(s): 474509284 (4) Chronic anemia Narrative/Plan: Anemia workup has been done, anemia of inflammation, this will continue to be monitored in the outpatient setting. Current Visit: Yes Status: Chronic Priority: Medium Code(s): D64.9 - ANEMIA, UNSPECIFIED SNOMED Code(s): 684379209 Plan: Patient is okay from a Hematology/Oncology standpoint to be discharged once she has been cleared by Attending and consulting Physicians.
[2018-02-06 11:34] VITALS: BP 152/71; PULSE 63; TEMP 98.6
--- NOTE | 2018-02-06 15:26 | P.PN ---
Subjective Progress Note Date: 02/06/18 Mrs. Baltazar is a pleasant 73-year-old female past medical history significant for duodenal adenocarcinoma, hyperlipidemia, hypertension, chronic pancreatitis and history of PE. We have been asked to see her in consultation secondary to mild troponin elevation. She denies symptoms of chest pain, shortness of breath, dizziness, palpitations or diaphoresis. Per her was at the bedside she underwent a GI procedure last week at [facility] he is unsure of exactly what procedure performed his description it sounds like an EGD. Yesterday morning she started vomiting which she describes as a dark red blood. Acute abdominal series reveals possible ileus. She has also been seen in consultation by GI services. EKG on arrival reveals sinus mechanism with septal T-wave inversions. Chest x-ray is negative for an acute cardiopulmonary process. Laboratory data reviewed, hemoglobin 9.2, platelets 183 , potassium 3.4, sodium 141, magnesium 1.8, crit AST 77, ALP 67, alkaline phosphatase 223, initial cardiac enzyme 0.037, 0.028 and less than 0.12, lipase 1595, creatinine 0.64.Current cardiac medications include atorvastatin 40 mg daily and potassium supplementation twice a day. She also takes magnesium supplementation, Synthroid, ferrous sulfate and vitamin D.Most recent echocardiogram reveals preserved left ventricular systolic function with ejection fraction 60-65%, mild aortic valve stenosis with a mean gradient of 8.36 mmHg, borderline pulmonary hypertension with an RVSP 33.3 mmHg. This was obtained and April 2017. 02/05/2018 Patient was seen and examined this morning, she did go into A. fib with RVR. Was initiated on IV Cardizem drip. An Echocardiogram with Doppler study was performed yesterday and is yet pending. Blood pressure 154/80, heart rate in the 120s, sodium 140, potassium 3.3 which was replaced, BUN 20, creatinine 0.6. 02/06/2018 Patient seen and examined this morning, no further episodes of atrial fibrillation, remaining in normal sinus rhythm. She sitting up in the chair today, feeling quite well, ready to be discharged from her perspective. Echocardiogram with Doppler study was performed which revealed an ejection fraction of 55-60%. Objective - Vital Signs Vital signs: Vital Signs Temp 98.6 F 02/06/18 11:15 Pulse 63 02/06/18 11:15 Resp 18 02/06/18 11:15 BP 152/71 02/06/18 11:15 Pulse Ox 99 02/06/18 11:15 Intake & Output 02/05/18 02/06/18 02/06/18 18:59 06:59 18:59 Intake Total 1000 800 750 Balance 1000 800 750 Weight 66 kg Intake: Intake, IV Titration 500 800 450 Amount Sodium Chloride 0.45% 1, 500 800 450 000 ml @ 100 mls/hr IV . Q10H [facility] Rx#:[id number] Oral 500 300 Other: Voiding Method Toilet Toilet Toilet # Voids 0 - Exam PHYSICAL EXAMINATION: HEENT: Head is atraumatic, normocephalic. Pupils equal, round. Neck is supple. There is no elevated jugular venous pressure. HEART EXAMINATION: Heart S1 and S2 irregularly irregular CHEST EXAMINATION: Lungs are clear to auscultation and precussion. No chest wall tenderness is noted on palpation or with deep breathing. ABDOMEN: Soft, nontender. Bowel sounds are heard. No organomegaly noted. EXTREMITIES: 2+ peripheral pulses with no evidence of peripheral edema and no calf tenderness noted. NEUROLOGIC patient is awake, alert and oriented -3. . - Labs CBC & Chem 7: 02/06/18 06:21 02/06/18 06:21 Labs: Abnormal Lab Results - Last 24 Hours (Table) 02/05/18 02/06/18 02/06/18 Range/Units 20:12 00:24 06:21 RBC 3.15 L (3.80-5.40) m/uL Hgb 9.4 L (11.4-16.0) gm/dL Hct 29.1 L (34.0-46.0) % Sodium (137-145) mmol/L Potassium 3.3 L 3.3 L (3.5-5.1) mmol/L Carbon Dioxide (22-30) mmol/L 02/06/18 Range/Units 06:21 RBC (3.80-5.40) m/uL Hgb (11.4-16.0) gm/dL Hct (34.0-46.0) % Sodium 136 L (137-145) mmol/L Potassium (3.5-5.1) mmol/L Carbon Dioxide 18 L (22-30) mmol/L Microbiology - Last 24 Hours (Table) 02/03/18 12:22 Blood Culture - Preliminary Blood No Growth after 72 hours Assessment and Plan Plan: Assessment and plan #1 acute pancreatitis with a duodenal adenocarcinoma and recent chemotherapy and radiation #2 hypertension #3 hyperlipidemia #4 mild troponin abnormality with T wave inversion noted on the EKG, echocardiogram with Doppler study remains pending. # 5 paroxysmal atrial fibrillation Plan Echocardiogram with Doppler study revealed a normal left ventricular systolic function. From cardiology's perspective, we'll follow this patient along with you now on an as-needed basis only, please don't hesitate to call with any questions. DNP note has been reviewed, I agree with a documented findings and plan of care. Patient was seen and examined.
--- NOTE | 2018-02-06 15:45 | P.DS ---
Providers Date of admission: 02/03/18 16:01 Attending physician: Sebastian Miguel Consults: 02/03/18 16:03 Consult Physician Routine Consulting Provider: Abdi Worley Consult Reason/Comments: Elevated troponin Do you want consulting provider notified?: Yes 02/04/18 13:48 Consult Physician Routine Consulting Provider: Anthony Boyd Consult Reason/Comments: recent chemo/ known to patient Do you want consulting provider notified?: Yes, Notify in am Primary care physician: [place] Winter [facility] [place] Course: 73-year-old female with a known history of duodenal cancer status post chemotherapy in August 2017 and radiation in October 2017, hypothyroidism and multiple other medical problems came to ER with complaints of nausea and multiple emesis with streaks of blood in it and epigastric abdominal discomfort. She also has some nonspecific abdominal discomfort with this she also has some lightheadedness and dizziness with it. She denies any overt fevers chills or sweats. Of note she did have a upper endoscopy done 2 days ago at [facility]. No complaints of chest pain or shortness of breath. antral gastritis and colonic polyps based on the most recent EGD and colonoscopy done at [facility] 02/17/2017, positive H. pylori, Patient was found to be febrile with T-max 100.7 Troponin 0.037 Lipase 1595 The abdominal x-ray showed correlate for enteritis 02/04/2018 Patient's abdominal pain is much improved now. No complaints of chest pain or shortness of breath. Patient was started on a clear liquid diet and advance as tolerated. Lipase level is trending down as well as liver enzymes which could be due to recent procedure with EGD and possible biopsy. Will titrate up in records from [facility]. Otherwise family wants to talk to oncology Dr. Boyd regarding her Further plan. Patient is supposed to follow with [facility] on next Monday. Patient has been afebrile now. Patient was seen by cardiology and gastroenterology. Discussed with her at bedside in detail. 02/05/2018 Patient is still complaining of abdominal discomfort today. X-ray of the abdomen ordered. Patient went into A. fib with RVR this morning. Currently on Cardizem drip. Liver enzymes continues to improve. No fever no chills. No nausea no vomiting. No cough or sputum production. 02/06/2018 Patient doesn't have any A. fib episodes patient appears to have an episode of proximal A. fib is completely resolved cardiology evaluated the patient patient is not on any rate control medications at this time not on any anti-correlation at this time and patient will be discharged today. PHYSICAL EXAMINATION: GENERAL: The patient is alert and oriented x3, not in any acute distress. Well developed, well nourished. HEENT: Pupils are round and equally reacting to light. EOMI. No scleral icterus. No conjunctival pallor. Normocephalic, atraumatic. No pharyngeal erythema. No thyromegaly. CARDIOVASCULAR: S1 and S2 present. No murmurs, rubs, or gallops. PULMONARY: Chest is clear to auscultation, no wheezing or crackles. ABDOMEN: Soft, nontender, nondistended, normoactive bowel sounds. No palpable organomegaly. MUSCULOSKELETAL: No joint swelling or deformity. EXTREMITIES: No cyanosis, clubbing, or pedal edema. NEUROLOGICAL: Gross neurological examination did not reveal any focal deficits. SKIN: No rashes. Assessment and Plan Assessment: Atrial fibrillation with rapid ventricular rate. Off Cardizem drip. No anticoagulation due to GI bleed. Normal LV function Abdominal pain secondary to acute pancreatitis with elevated lipase level. likely related to recent procedure. Improved and patient is tolerating diet Abdominal distention. Likely due to ileus improved EGD at [facility] 2 days ago Nausea vomiting and hematemesis possible upper GI bleed. Hemoglobin stable I do not believe patient has acute blood laws anemia and GI bleed Elevated liver enzymes. Normalized now. Likely due to recent procedure. Hypokalemia History of antral gastritis Duodenal cancer status post chemotherapy and radiation in August 2017 and November 2017 History of PE status post IVC filter Hypertension Hyperlipidemia Hypothyroidism Patient Condition at Discharge: Stable Plan - Discharge Summary New Discharge Prescriptions: New Omeprazole [PriLOSEC] 40 mg PO -BRKFST #14 capsule.dr Continue Atorvastatin [Lipitor] 40 mg PO DAILY Levothyroxine Sodium [Synthroid] 100 mcg PO DAILY Ferrous Sulfate [Iron (65 MG Elemental)] 325 mg PO DAILY Magnesium Oxide [Mag-Ox] 400 mg PO BID Cholecalciferol (Vitamin D3) [Vitamin D3] 2,000 unit PO DAILY Discontinued Potassium Chloride ER [K-Dur 20] 20 meq PO BID Discharge Medication List Atorvastatin [Lipitor] 40 mg PO DAILY 03/10/16 [History] Levothyroxine Sodium [Synthroid] 100 mcg PO DAILY 03/10/16 [History] Ferrous Sulfate [Iron (65 MG Elemental)] 325 mg PO DAILY 04/13/17 [History] Cholecalciferol (Vitamin D3) [Vitamin D3] 2,000 unit PO DAILY 02/03/18 [History] Magnesium Oxide [Mag-Ox] 400 mg PO BID 02/03/18 [History] Omeprazole [PriLOSEC] 40 mg PO DELVIN-BERNARD #14 capsule. 02/06/18 [Rx] Follow up Appointment(s)/Referral(s): Anthony Boyd MD [STAFF PHYSICIAN] - 02/14/18 2:45 pm Sebastian Miguel MD [Primary Care Provider] - 02/09/18 11:50 am (Monday) Patient Instructions/Handouts: Pancreatitis (DC) Discharge Disposition: HOME SELF-CARE
--- NOTE | 2018-02-06 15:50 | P.PN ---
Subjective 69-year-old admitted with chest pain typical in nature but medical therapy is being recommended by cardiology no further intervention is being planned by cardiology. Patient has ischemic myopathy with prior AICD. Patient has history of atrial fibrillation on Coumadin subthalamic and INR, still I do not believe patient need to be bridged Lovenox will be discontinued patient will be continued on Coumadin with repeat INR tomorrow. Unsure why but patient is thrombocytopenic. Patient is also being treated for urinary Tract infection catheter-related does have gram-negative bacilli and enterococcus. Patient is presently on Rocephin which will be discontinued will be started on Zosyn to cover enterococcus as well as possibility of Pseudomonas because of chronic Chew catheter. Unsure whether this is replaced are not, we'll try and figure out whether this is replaced. Leukopenia probably related to infection that is urinary tract infection. Patient is not a reliable historian try to get some history from the patient regarding his chronic Chew catheter. Constitutional: Denied any fatigue denied any fever. Cardio vascular: denied any chest pain, palpitations Gastrointestinal denied any nausea vomiting Pulmonary: Denied any shortness of breath cough Neurologic denied any new focal deficits Objective - Vital Signs Vital signs: Vital Signs Temp 98.6 F 02/06/18 11:15 Pulse 63 02/06/18 11:15 Resp 18 02/06/18 11:15 BP 152/71 02/06/18 11:15 Pulse Ox 99 02/06/18 11:15 Intake & Output 02/05/18 02/06/18 02/06/18 18:59 06:59 18:59 Intake Total 1000 800 750 Balance 1000 800 750 Weight 66 kg Intake: Intake, IV Titration 500 800 450 Amount Sodium Chloride 0.45% 1, 500 800 450 000 ml @ 100 mls/hr IV . Q10H [facility] Rx#:[id number] Oral 500 300 Other: Voiding Method Toilet Toilet Toilet # Voids 0 - Exam PHYSICAL EXAMINATION: GENERAL: The patient is alert and oriented x3, not in any acute distress. Well developed, well nourished. HEENT: Pupils are round and equally reacting to light. EOMI. No scleral icterus. No conjunctival pallor. Normocephalic, atraumatic. No pharyngeal erythema. No thyromegaly. CARDIOVASCULAR: S1 and S2 present. No murmurs, rubs, or gallops. PULMONARY: Chest is clear to auscultation, no wheezing or crackles. ABDOMEN: Soft, nontender, nondistended, normoactive bowel sounds. No palpable organomegaly. MUSCULOSKELETAL: No joint swelling or deformity. EXTREMITIES: No cyanosis, clubbing, or pedal edema. NEUROLOGICAL: Gross neurological examination did not reveal any focal deficits. SKIN: No rashes. - Labs CBC & Chem 7: 02/06/18 06:21 02/06/18 06:21 Labs: Abnormal Lab Results - Last 24 Hours (Table) 02/05/18 02/06/18 02/06/18 Range/Units 20:12 00:24 06:21 RBC 3.15 L (3.80-5.40) m/uL Hgb 9.4 L (11.4-16.0) gm/dL Hct 29.1 L (34.0-46.0) % Sodium (137-145) mmol/L Potassium 3.3 L 3.3 L (3.5-5.1) mmol/L Carbon Dioxide (22-30) mmol/L 02/06/18 Range/Units 06:21 RBC (3.80-5.40) m/uL Hgb (11.4-16.0) gm/dL Hct (34.0-46.0) % Sodium 136 L (137-145) mmol/L Potassium (3.5-5.1) mmol/L Carbon Dioxide 18 L (22-30) mmol/L Microbiology - Last 24 Hours (Table) 02/03/18 12:22 Blood Culture - Preliminary Blood No Growth after 72 hours Assessment and Plan Plan: Assessment and Plan Plan: Assessment and plan #1 symptoms of exertional chest discomfort with associated shortness of breath. Continue maximal medical therapy. No operative intervention is being contemplated at this time #2 known history of coronary artery disease with prior bypass surgery and PCI, most recently in December patient was in the hospital with a non-Q wave MO and subsequent GI bleed. #3 ischemic cardiomyopathy with prior AICD implant, AICD was interrogated and December and was functioning appropriately. #4 hypertension #5 hyperlipidemia #6 pancytopenia: I will obtain B12 levels, leukopenia can be from infection. #7 possible catheter related urinary tract infection antibiotic management as mentioned above patient's Chew catheter related. Placed if it's already not done. -#8 atrial fibrillation presently rate controlled on anticoagulation with Coumadin, I do not believe he needs to be bridged at this time -#9 low blood pressure secondary to severe ischemic cardiomyopathy.
== END 2018-02-06 15:37 | disposition home or self-care (01) | DRG 439 ==
LOC: EC 11:30 → 6SEL 16:01
PROVIDERS: ADMIT Family Medicine; ATTEND Family Medicine
DX: K85.90 Acute pancreatitis without necrosis or infection, unspecified (principal); C17.0 Malignant neoplasm of duodenum; D61.818 Other pancytopenia; D62 Acute posthemorrhagic anemia; K56.7 Ileus, unspecified; K92.2 Gastrointestinal hemorrhage, unspecified; E03.9 Hypothyroidism, unspecified; E78.5 Hyperlipidemia, unspecified; I10 Essential (primary) hypertension; I25.5 Ischemic cardiomyopathy; I27.20 Pulmonary hypertension, unspecified; I35.0 Nonrheumatic aortic (valve) stenosis; I48.0 Paroxysmal atrial fibrillation; E87.6 Hypokalemia; K86.1 Other chronic pancreatitis; R77.9 Abnormality of plasma protein, unspecified; H91.90 Unspecified hearing loss, unspecified ear; I95.9 Hypotension, unspecified; Z79.899 Other long term (current) drug therapy; Z79.890 Hormone replacement therapy; Z95.810 Presence of automatic (implantable) cardiac defibrillator; Z92.3 Personal history of irradiation; Z92.21 Personal history of antineoplastic chemotherapy; Z90.710 Acquired absence of both cervix and uterus; Z86.711 Personal history of pulmonary embolism; Z86.010 Personal history of colon polyps; Z86.19 Personal history of other infectious and parasitic diseases; Z87.11 Personal history of peptic ulcer disease; Z82.5 Family history of asthma and other chronic lower respiratory diseases
CPT/HCPCS: 36415; 71045; 74018; 74022; 80048; 80053; 80061; 81001; 82550; 82553; 83605; 83690; 83735; 84132; 84484; 85025; 85027; 85610; 85730; 86850; 86900; 86901; 87040; 93005; 93306; 96361; 96374; 99285

== ENCOUNTER → 2018-03-24 | Outpatient (CLI) | payer MEDICARE, BC ==
--- NOTE | 2018-03-28 07:56 | PE ---
EXAMINATION TYPE: PET CT fusion skull to thigh DATE OF EXAM: 03/24/2018 COMPARISON: PET/CT dated 09/23/[address] chest abdomen pelvis dated 04/22/2017. HISTORY: Duodenal adenocarcinoma. Last chemotherapy treatment in August 2017 and radiation therapy treatment in November 2017. No surgical intervention. Subsequent treatment strategy. TECHNIQUE: Following the intravenous administration of 13.76 mCi of F-18 FDG, whole body images are performed from the skull base to the midthigh. Images are reviewed on the computer in the coronal, a xial, and sagittal planes. Reconstructed rotating images are created on independent workstation and reviewed on the computer. A localization and attenuation correction CT is performed in conjunction with the PET scan. SCAN: Second at this institution. Subsequent treatment strategy. FINDINGS: Thoracic background: 1.81 Abdominal background: 2.6 SKULL BASE AND NECK: No suspicious hypermetabolic uptake. CHEST, MEDIASTINUM, AND HILAR REGION: No suspicious hypermetabolic uptake. ABDOMEN AND PELVIS: There is focal hypermetabolic activity with a maximum SUV of 4.18 seen at the med ial aspect of the descending duodenum on fusion image 125 and not well identified given lack of intra venous and oral contrast on the corresponding CT images. This is present to a lesser degree on the im age above and below and is therefore an total less than 1.5 cm in length. No obstruction is seen prox imally. The adjacent pancreatic head appears slightly more bulbous than on the prior exam without fo otilia identifiable lesion on this noncontrast enhanced CT and has a maximum SUV of 2.46, similar to katerine round abdominal uptake (2.6). Within the pelvis is a persistent nonhypermetabolic right adnexal cystic lesion (maximal SUV of 1.18) . OSSEOUS STRUCTURES: No suspicious hypermetabolic uptake. OTHER CT: Probable left frontal osteoma is again seen within the left frontal sinus. There is redemon stration of a right-sided Mediport. Mild interlobular septal thickening and bibasilar opacities again suggest underlying fluid overload. The ascending thoracic aorta is upper limits normal size measurin g 4.0 cm and the main pulmonary artery is mildly enlarged measuring 3.1 cm. The heart is also enlarge d. No mediastinal adenopathy. Moderate three-vessel coronary artery calcifications are seen. Minimal pneumobilia is noted. This is new from the prior exam. Cholelithiasis is again seen. Intrarenal infer ior vena cava filter and mild mesenteric congestion as well as anasarca are also redemonstrated. Slig ht thickening of the adrenal glands again likely relates to benign adrenal gland hyperplasia. The rig ht adnexal lesion is unchanged in size to the prior 4.0 x 2.9 cm when measured similarly. Few colonic diverticula are noted. No greater than 1 cm short axis lymph nodes are seen within the abdomen or pe lvis. Again there is a large fat-containing ventral abdominal hernia and adjacent smaller fat-contain ing. Umbilical hernia. IMPRESSION: 1. New focal hypermetabolic activity within the medial descending duodenum thought to represent the p atient's primary site of duodenal carcinoma, newly FDG avid, suggesting recurrence. Direct visualizat ion or dynamic enhanced MR could be performed for further evaluation. 2. Prominence and mild FDG avidity of the pancreatic head in comparison to prior exams may relate to reactive change adjacent to the descending duodenal mass or posttreatment change with no appreciable lesion on CT, however dynamic enhanced CT or MR is recommended to ensure no underlying pancreatic mas s. 3. Stable size of the 2.9 cm right adnexal lesion dating back to 04/22/2017. Again this is hypometaboli c and could represent a benign ovarian neoplasm, however at minimum continued surveillance is recomme nded. Alternatively [employer] gynecology/oncology consultation could be sought.
== END | disposition home or self-care (01) ==
LOC: RADPETMAIN 15:55
PROVIDERS: ATTEND Surgery
DX: C17.0 Malignant neoplasm of duodenum (principal); N85.8 Other specified noninflammatory disorders of uterus
CPT/HCPCS: 78815; A9552

== ENCOUNTER → 2018-11-13 | Outpatient (CLI) | payer MEDICARE, BC ==
[2018-11-13 09:25] LABS: Blood Urea Nitrogen 14 mg/dL (7-17)
--- NOTE | 2018-11-13 12:11 | CT ---
EXAMINATION TYPE: CT ChestAbdPelvis w con DATE OF EXAM: 11/13/2018 COMPARISON: 03/24/2018 and 09/23/2017 HISTORY: 73-year-old female Follow up for duodenal CA. TECHNIQUE: Contiguous axial scanning of the chest, abdomen, and pelvis performed with IV Contrast, pa tient injected with 100 mL of Isovue 300. Delayed images through the kidneys were obtained. Coronal/s agittal reconstructions performed. CT DLP: 1224 mGycm Automated exposure control for dose reduction was used. FINDINGS: Chest: Right anterior chest wall injection port with catheter tip at the cavoatrial junction. Heart upper li mits of normal in size without pericardial effusion. Coronary vessel calcifications are present. Very mild atherosclerotic arch calcifications with a conventional vessel branching anatomy. No thoracic lymphadenopathy by CT size criteria. Mild hazy dependent atelectasis. No consolidation or pleural effusion. Mild centrilobular emphysema i n the upper lungs. ABDOMEN: There is new moderate intrahepatic biliary ductal dilatation and new dilatation of the bile duct up t o 1.4 cm. Some focal dependent thickening along the mid bile duct measuring 6 mm thick, refer to axia l image 50. There is focal mass along the lower second portion of the duodenum near the region of the ampulla. Th e mass measures approximately 3.6 x 2.2 cm. There is some contiguous adjacent fold thickening extendi ng to the junction of the second and third portions of the duodenum, refer to axial images at C7 thro ugh 59. There is secondary narrowing of the endoluminal space. Mild diffuse prominence of the main pa ncreatic duct. Mild free fluid along the gallbladder fossa. No focal liver lesion. Portal venous system is patent. Focal low-density nodularity of the left adrenal gland measures 1.2 cm and is unchanged suggesting un derlying adrenal adenoma. Parapelvic cysts in the left kidney. Right kidney, spleen, pancreas otherwi se show no gross abnormality. Mild diffuse anasarca type changes. IVC filter is present. Numerous scattered nonenlarged mesenteric lymph nodes. No suspicious lymphadenopathy seen. No dilated small bowel, free fluid, or free air. Oral contrast progressed to the proximal sigmoid. No pericolonic inflammatory change. Pelvis: There is some free fluid tracking down to the pelvis surrounding the upper rectum. Redemonstrated multilocular complex cystic lesion of the right ovary measuring 4.2 x 2.5 cm, not sign ificantly changed. Left ovary is visualized. The patient's previous fatty umbilical hernia has resolved. Bladder urine distended. Fluid within the pelvis. No pelvic lymphadenopathy seen. Bones: Mild degenerative changes at the hips. Facet arthropathy lower lumbar spine. No osseous destructive p rocess. Fatty matrix hemangioma within the L2 vertebral body. Additional smaller hemangioma within T8 vertebral body. IMPRESSION: 1. LOCAL PROGRESSION WITH ENLARGING MASS CENTERED AT THE LOWER DESCENDING DUODENUM MEASURING 3.6 X 2. 2 CM AND SIGNIFICANTLY NARROWING THE DUODENAL LUMEN. 2. SUSPECT AT LEAST PARTIAL OBSTRUCTION AT THE AMPULLA GIVEN NEW MODERATE INTRAHEPATIC BILIARY DUCTAL DILATATION. THE BILE DUCT NOW MEASURES 1.4 CM AND THERE IS SOME DEPENDENT MATERIAL ALONG THE MID SONYA E DUCT , PROBABLY DEBRIS. 3. NO DISTANT METASTASES OR SUSPICIOUS LYMPHADENOPATHY IDENTIFIED. 4. STABLE COMPLEX CYSTIC RIGHT OVARIAN LESION MEASURING 4.2 X 2.5 CM. ALSO, STABLE 1.2 CM LOW-DENSITY NODULE OF THE LEFT ADRENAL GLAND, PROBABLE ADRENAL ADENOMA. 5. INTERVAL REPAIR OF PATIENT'S UMBILICAL HERNIA. THERE IS SOME FREE FLUID ALONG THE UPPER RECTUM MIKE T COULD REPRESENT SOME REACTIVE FLUID TRACKING DOWN INTO THE PELVIS OR SOME TYPE OF POSTSURGICAL SEQU JULIA. CLINICALLY CORRELATE.
== END | disposition home or self-care (01) ==
LOC: RADCTMAIN 08:05
PROVIDERS: ATTEND Internal Medicine Hematology & Oncology
DX: C17.0 Malignant neoplasm of duodenum (principal); K31.89 Other diseases of stomach and duodenum; K83.8 Other specified diseases of biliary tract; N83.201 Unspecified ovarian cyst, right side; E27.8 Other specified disorders of adrenal gland; Z88.8 Allergy status to other drugs, medicaments and biological substances
CPT/HCPCS: 82565; 84520; 71260; 74177; 36415; J1642; Q9967

== ENCOUNTER → 2018-11-24 | Outpatient (CLI) | payer MEDICARE, BC ==
--- NOTE | 2018-11-26 11:03 | PE ---
Nuclear medicine PET/CT HISTORY: Adenocarcinoma, subsequent Patient received 10.4 mCi F-18 FDG intravenously in delayed scanning was performed from the skull bas e to the mid thighs. Localization and attenuation correction CT scan was performed. Correlation to prior nuclear medicine PET/CT 03/24/2018, CT chest abdomen pelvis 11/13/2018 Neck and chest: No suspicious hypermetabolic uptake. No evident lung mass, no endobronchial lesion, p leural or pericardial effusion. There is a Port-A-Cath present in the right pectoral region, right fraire bclavian approach, distal tip within the superior vena cava. There are coronary artery calcifications , heart is enlarged. No mediastinal, axillary, or hilar adenopathy. ABDOMEN: Inferior vena cava filter is noted. Suspect some prominence of biliary ducts, gallbladder is not seen. At the level of the third and fourth portion of duodenum there is ill-defined soft tissue present, there is associated hypermetabolic uptake, SUV is 10. No retroperitoneal adenopathy or ascit es. No evident liver mass. Uptake along the stomach May BE physiologic. Right ovarian cystic focus is present measuring approximately 3.5 cm, no associated hypermetabolic uptake. Osseous structures are unremarkable. IMPRESSION: Hypermetabolic uptake associated with duodenal mass compatible with patient's history of adenocarcinoma
== END | disposition home or self-care (01) ==
LOC: RADPETMAIN 15:49
PROVIDERS: ATTEND Internal Medicine Hematology & Oncology
DX: C17.0 Malignant neoplasm of duodenum (principal)
CPT/HCPCS: 78815; A9552